=== PATIENT | female | born 1960 | race Caucasian/White ===

== ENCOUNTER → 2022-01-02 09:51 | Outpatient (BNVA) | payer OTHER, SELFPAY | PROVIDERS: PCP Physician Assistant Medical; Visit Provider Nurse Practitioner Family | DX: G35 Multiple sclerosis (principal); M96.1 Postlaminectomy syndrome, not elsewhere classified; M51.36 Other intervertebral disc degeneration, lumbar region; M79.652 Pain in left thigh; G89.29 Other chronic pain; M25.552 Pain in left hip; G83.9 Paralytic syndrome, unspecified; R29.6 Repeated falls; M76.32 Iliotibial band syndrome, left leg | CPT/HCPCS: 99202 ==

== ENCOUNTER 2022-01-28 10:40 | Outpatient (REF) | payer OTHER, SELFPAY ==
--- NOTE | ~2022-01-28 | MR_ITS ---
EXAMINATION: MR HIP WITHOUT CONTRAST, LEFT MRI FEMUR WITHOUT CONTRAST, LEFT CLINICAL INFORMATION: Left hip pain and left leg pain. Multiple sclerosis. COMPARISON: None. TECHNIQUE: MRI of the left hip and of the left thigh (separate studies) was obtained using routine sequences on a high-field magnet. FINDINGS: LEFT HIP: BONES AND ARTICULAR CARTILAGE: Severe osteoarthritis at the left hip is characterized by complete, full-thickness articular cartilage loss at the superior aspect of the left hip joint with articular cortical remodeling, subarticular cystic change and edema, marginal osteophytes and loose body formation. The flattening of the femoral head is likely due to articular cortical remodeling. Bone loss is also suspected at the sourcil. The labrum is markedly degenerated. There is slight lateral translation and uncovering of the femoral head relative to the acetabular roof. An underlying component of hip dysplasia is possible, though not well assessed on these images given the articular cortical remodeling and bone loss. No fracture or malalignment. No evidence of avascular necrosis. Minimal osteoarthritis in the right hip and SI joints. Pubic symphysis is normal. MUSCLES AND TENDONS: There is edema signal around the origin of the rectus femoris at the anterior superior iliac spine and lateral acetabular rim, reactive to the adjacent arthritis of the hip joint. No tears. Mild tendinosis. There is [id number] fatty atrophy of the gluteus minimus muscle. Musculature is otherwise unremarkable. JOINT FLUID AND BURSAE: Moderate-sized left hip joint effusion. Multiple low signal intensity intra-articular loose bodies are identified, measuring up to 6 mm in diameter. No bursitis. LIGAMENTUM TERES: Chronically torn and degenerated. INTRAPELVIC SOFT TISSUES: No acute intrapelvic abnormalities are identified. Colonic diverticulosis. No adenopathy. LEFT FEMUR: BONES AND CARTILAGE: Osteoarthritis at the left knee is only partially imaged on this study likely most pronounced at the lateral compartment where there is subchondral edema and cortical irregularity in addition to the cartilage loss and marginal osteophytes. No fractures or stress reactions. No osseous lesions. MUSCLES AND TENDONS: There is intramuscular edema signal within the vastus lateralis muscle which is most pronounced distally, potentially due to a muscle strain or contusion. Denervation is also possible, though felt to be less likely. Tendons appear intact. There is mild generalized muscle atrophy without more focal regions of fatty replacement. JOINT FLUID AND BURSAE: Small left knee joint effusion. No bursitis. LYMPHOVASCULAR STRUCTURES: Unremarkable. No adenopathy. MR/MR femur LT wo con IMPRESSION: Severe osteoarthritis in the left hip with articular surface remodeling, bone loss and subchondral cystic change. Mild rectus femoris tendinosis. No tears. Moderate-sized left hip joint effusion with small intra-articular chondral loose bodies. Mild intramuscular edema in the vastus lateralis muscle is most pronounced in the distal thigh and could correspond to a strain or contusion. Denervation is also on the differential, though felt to be less likely in the absence of more pronounced atrophy. Osteoarthritis at the knee is partially imaged on this study and most pronounced in the lateral compartment.
== END 2022-01-28 10:41 | disposition home or self-care (01) ==
LOC: HO.MRI 10:40
PROVIDERS: Visit Provider Nurse Practitioner Family
DX: G35 Multiple sclerosis (principal); G89.29 Other chronic pain; M79.652 Pain in left thigh; M25.552 Pain in left hip
CPT/HCPCS: 73718; 73721

== ENCOUNTER → 2022-02-13 08:24 | Outpatient (BNVA) | payer OTHER, SELFPAY | PROVIDERS: PCP Physician Assistant Medical; Visit Provider Nurse Practitioner Family | DX: M16.12 Unilateral primary osteoarthritis, left hip (principal); M79.652 Pain in left thigh; M25.552 Pain in left hip; G89.29 Other chronic pain; G83.9 Paralytic syndrome, unspecified; M51.36 Other intervertebral disc degeneration, lumbar region; M96.1 Postlaminectomy syndrome, not elsewhere classified; G35 Multiple sclerosis; R29.6 Repeated falls | CPT/HCPCS: 99212 ==

== ENCOUNTER → 2022-06-22 09:21 | Outpatient (BNVA) | payer OTHER, SELFPAY | PROVIDERS: PCP Physician Assistant Medical; Visit Provider Nurse Practitioner Family | DX: M96.1 Postlaminectomy syndrome, not elsewhere classified (principal); R20.2 Paresthesia of skin; G57.92 Unspecified mononeuropathy of left lower limb; M16.12 Unilateral primary osteoarthritis, left hip; M51.36 Other intervertebral disc degeneration, lumbar region; G35 Multiple sclerosis; M25.552 Pain in left hip; G89.29 Other chronic pain | CPT/HCPCS: 99212 ==

== ENCOUNTER → 2022-07-09 08:48 | Outpatient (BNVA) | payer OTHER, SELFPAY | PROVIDERS: PCP Physician Assistant Medical; Visit Provider Nurse Practitioner Family | DX: M96.1 Postlaminectomy syndrome, not elsewhere classified (principal); M16.12 Unilateral primary osteoarthritis, left hip; M51.36 Other intervertebral disc degeneration, lumbar region; G35 Multiple sclerosis; G57.92 Unspecified mononeuropathy of left lower limb; Z79.891 Long term (current) use of opiate analgesic | CPT/HCPCS: 99212 ==

== ENCOUNTER → 2022-07-23 10:45 | Outpatient (BNVA) | payer OTHER, SELFPAY | PROVIDERS: PCP Physician Assistant Medical; Visit Provider Nurse Practitioner Family | DX: Z13.89 Encounter for screening for other disorder (principal) ==

== ENCOUNTER → 2022-08-11 11:00 | Outpatient (BNVA) | payer OTHER, SELFPAY | PROVIDERS: PCP Physician Assistant Medical; Visit Provider Nurse Practitioner Family | DX: M96.1 Postlaminectomy syndrome, not elsewhere classified (principal); M51.36 Other intervertebral disc degeneration, lumbar region; M16.12 Unilateral primary osteoarthritis, left hip; G89.29 Other chronic pain; M25.552 Pain in left hip; Z79.891 Long term (current) use of opiate analgesic | CPT/HCPCS: 99212 ==

== ENCOUNTER 2022-09-02 12:46 | Outpatient (REF) | payer OTHER, SELFPAY ==
--- NOTE | 2022-09-02 10:00 | EMG_ITS ---
Please see scanned EMG / Nerve Conduction Report. MTDD
== END 2022-09-02 12:47 | disposition home or self-care (01) ==
LOC: HO.NEURO 12:46
PROVIDERS: PCP Student in an Organized Health Care Education/Training Program; Visit Provider Nurse Practitioner Family
DX: M96.1 Postlaminectomy syndrome, not elsewhere classified (principal); R20.2 Paresthesia of skin; G57.92 Unspecified mononeuropathy of left lower limb
CPT/HCPCS: 95885; 95908

== ENCOUNTER → 2022-09-08 11:04 | Outpatient (BNVA) | payer OTHER, SELFPAY | PROVIDERS: PCP Student in an Organized Health Care Education/Training Program; Visit Provider Nurse Practitioner Family | DX: Z51.81 Encounter for therapeutic drug level monitoring (principal); F11.20 Opioid dependence, uncomplicated | CPT/HCPCS: 99211 ==

== ENCOUNTER → 2022-09-29 11:09 | Outpatient (BNVA) | payer OTHER, SELFPAY | PROVIDERS: PCP Student in an Organized Health Care Education/Training Program; Visit Provider Nurse Practitioner Family | DX: G57.32 Lesion of lateral popliteal nerve, left lower limb (principal); M96.1 Postlaminectomy syndrome, not elsewhere classified; R20.2 Paresthesia of skin; M51.36 Other intervertebral disc degeneration, lumbar region; G35 Multiple sclerosis; G89.29 Other chronic pain; M25.552 Pain in left hip; Z79.891 Long term (current) use of opiate analgesic | CPT/HCPCS: Q3014 ==

== ENCOUNTER → 2022-10-02 13:47 | Outpatient (BNVA) | payer OTHER, SELFPAY | PROVIDERS: PCP Student in an Organized Health Care Education/Training Program; Visit Provider Nurse Practitioner Family | DX: M96.1 Postlaminectomy syndrome, not elsewhere classified (principal); M51.36 Other intervertebral disc degeneration, lumbar region; M16.12 Unilateral primary osteoarthritis, left hip; G89.29 Other chronic pain; M25.552 Pain in left hip; Z79.891 Long term (current) use of opiate analgesic; Z51.81 Encounter for therapeutic drug level monitoring | CPT/HCPCS: 99212 ==

== ENCOUNTER → 2022-11-03 11:00 | Outpatient (BNVA) | payer OTHER, SELFPAY | PROVIDERS: PCP Student in an Organized Health Care Education/Training Program; Visit Provider Nurse Practitioner Family | DX: Z51.81 Encounter for therapeutic drug level monitoring (principal); Z79.899 Other long term (current) drug therapy | CPT/HCPCS: 99211 ==

== ENCOUNTER → 2022-11-12 08:40 | Outpatient (BNVA) | payer OTHER, SELFPAY | PROVIDERS: PCP Student in an Organized Health Care Education/Training Program; Visit Provider Nurse Practitioner Family | DX: G35 Multiple sclerosis (principal); G57.32 Lesion of lateral popliteal nerve, left lower limb; M16.12 Unilateral primary osteoarthritis, left hip; M51.36 Other intervertebral disc degeneration, lumbar region; M96.1 Postlaminectomy syndrome, not elsewhere classified; R20.2 Paresthesia of skin; Z79.891 Long term (current) use of opiate analgesic | CPT/HCPCS: Q3014 ==

== ENCOUNTER → 2022-12-01 10:08 | Outpatient (BNVA) | payer OTHER, SELFPAY | PROVIDERS: PCP Student in an Organized Health Care Education/Training Program; Visit Provider Nurse Practitioner Family | DX: Z51.81 Encounter for therapeutic drug level monitoring (principal); M16.12 Unilateral primary osteoarthritis, left hip; M96.1 Postlaminectomy syndrome, not elsewhere classified; M51.36 Other intervertebral disc degeneration, lumbar region; M25.552 Pain in left hip; G57.32 Lesion of lateral popliteal nerve, left lower limb; G89.29 Other chronic pain; Z79.891 Long term (current) use of opiate analgesic | CPT/HCPCS: 99212 ==

== ENCOUNTER → 2022-12-21 09:46 | Outpatient (BNVA) | payer OTHER, SELFPAY | PROVIDERS: PCP Internal Medicine; Visit Provider Nurse Practitioner Family | DX: Z51.81 Encounter for therapeutic drug level monitoring (principal); M16.12 Unilateral primary osteoarthritis, left hip; M96.1 Postlaminectomy syndrome, not elsewhere classified; M51.36 Other intervertebral disc degeneration, lumbar region; M25.552 Pain in left hip; G57.32 Lesion of lateral popliteal nerve, left lower limb; G89.29 Other chronic pain; Z79.891 Long term (current) use of opiate analgesic | CPT/HCPCS: 99212 ==

== ENCOUNTER → 2023-01-18 10:01 | Outpatient (BNVA) | payer OTHER, SELFPAY | PROVIDERS: PCP Internal Medicine; Visit Provider Nurse Practitioner Family | DX: Z51.81 Encounter for therapeutic drug level monitoring (principal); F11.20 Opioid dependence, uncomplicated | CPT/HCPCS: 99211 ==

== ENCOUNTER 2023-02-18 10:08 | Outpatient (AMB) | payer OTHER, SELFPAY ==
--- NOTE | 2023-02-18 10:10 | A.OFFVIS_ITS ---
Intake Vital Signs 02/18/23 10:23 Height 5 ft 9 in Weight 160 lb BMI 23.6 BP 115/58 L Blood Pressure Location Lt brachial Position Sitting Pulse 71 Pulse Source Pulse Oximeter Pulse Oximetry (%) 96 Oxygen Delivery Method Room Air Intake Visit Reasons: Pill count Intake Note: Maria comes in today for a pill count to oxycodone, patient should have 0 tablets and presents with 21 tablets which she last took today 02/18/23 at 9am. Pain today 02/25. 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 Patient is supposed to have #0 pills, in her possession has #21 pills. This demonstrates a responsible attitude in regards to the medication regimen. Patient reports mild to moderate relief on her current regime of oxycodone 5 mg TID prn with no noted side effects. Reports right shoulder pain with difficulty raising her right arm above her head and has to assist her right arm with left hand. She has upcoming follow up for this with Orthopedics at [facility] next week. Patient requests to add Tylenol in her oxycodone medication. Denies any fever, constipation, sedation, dizziness, or urinary retention. [facility] Medical History Constipation Depression Dyspnea Edema leg Frequent UTI GERD (gastroesophageal reflux disease) Hyperlipidemia Hypertension Hypothyroidism Leukopenia Medical marijuana use Neurogenic bladder disorder Paroxysmal hemicrania Periodic limb movement disorder Pre-diabetes Splenomegaly Urinary urgency Vitamin D deficiency Surgical History H/O: H/O: hysterectomy History of back surgery Family History Mother Rheumatoid arthritis Thyroid cancer Father Rheumatoid arthritis Maternal Grandmother Lung cancer Maternal Grandfather Rectal cancer Maternal Aunt Thyroid cancer Social History Alcohol intake: current Alcohol intake frequency: holidays/special occasions only Patient Tobacco Use Status: Former Tobacco user Review of Systems Const All systems reviewed & are unremarkable except as noted in HPI and below Physical Exam Vital Signs: Last Vital Signs Pulse 71 02/18/23 10:23 BP 115/58 L 02/18/23 10:23 Pulse Ox 96 02/18/23 10:23 Oxygen Delivery Method Room Air 02/18/23 10:23 BMI result Body Mass Index 23.6 General: Appears afebrile. Alert and oriented. Mood and affect appropriate. Follows and participates in conversation appropriately. Respiratory effort is unlabored. Sits comfortably in motorized wheelchair. Back/Spine/Pelvis Other: Extrem Other: Right shoulder normal to inspection. No erythema or ecchymosis. Patient has difficulty with overhead reach or reaching her back pocket. Significant tendern ess to palpation to the anterior aspect of the right shoulder. Psych Appearance: grossly normal Mental Status: mental status grossly normal Speech and movement: Normal speech and movement present Affect: normal affect Attitude: cooperative Thought process: Normal thought process present Thought content: Normal thought content present, suicidality (none), no hallucinations and No Depressive thoughts present Insight: Good insight present (Psych) Judgement: Good judgement present (Psych) Assessment & Plan Assessment & Plan (1) Opioid contract exists: Code(s): Z79.891 - MCFP (current) use of opiate analgesic (2) Degenerative joint disease of left hip: Code(s): M16.12 - Unilateral primary osteoarthritis, left hip (3) Failed back syndrome of lumbar spine: Code(s): M96.1 - Postlaminectomy syndrome, not elsewhere classified (4) Lumbar degenerative disc disease: Code(s): M51.36 - Other intervertebral disc degeneration, lumbar region (5) Chronic left hip pain: Code(s): M25.552 - Pain in left hip; G89.29 - Other chronic pain (6) Right shoulder pain: Code(s): M25.511 - Pain in right shoulder Plan Patient has shown accountability for her medication regimen and the pill count was accurate. There is no evidence of misuse, abuse or diversion at this time. MyronThu reviewed. Will add acetaminophen to current oxycodone 5 mg TID prn with advanced date of 02/23/23. Follow up with [facility] for right shoulder pain as planned next week. All questions were answered and the patient is in agreement with the plan. Will follow up in 4-5 weeks for a pill count or sooner if needed. Medications: New oxycodone-acetaminophen 5-325 mg Partial Fill upon patient request. 1 tab PO Q8H PRN 90 tabs 0RF pain 30 days G89.29 - Other chronic pain, M16.12 - Unilateral primary osteoarthritis, left hip, M25.552 - Pain in left hip, M51.36 - Other intervertebral disc degeneration, lumbar region, M96.1 - Postlaminectomy syndrome, not elsewhere classified, Z79.891 - MCFP (current) use of opiate analgesic Discontinued oxycodone Partial Fill upon patient request. Discontinued Reason: Doctor's Order 5 mg PO Q8H PRN 90 tabs 0RF pain 30 days G89.29 - Other chronic pain, M16.12 - Unilateral primary osteoarthritis, left hip, M25.552 - Pain in left hip, M51.36 - Other intervertebral disc degeneration, lumbar region, M96.1 - Postlaminectomy syndrome, not elsewhere classified, Z79.891 - MCFP (current) use of opiate analgesic Coding Level of Care Code Est Pt Level 4 (64541) Diagnoses Opioid contract exists Z79.891 Degenerative joint disease of left hip M16.12 Failed back syndrome of lumbar spine M96.1 Lumbar degenerative disc disease M51.36 Chronic left hip pain M25.552; G89.29 Right shoulder pain M25.511
[2023-02-18 10:23] VITALS: BP 115/58; PULSE 71; O2SAT 96; BMI 23.6
== END 2023-02-18 10:23 | disposition home or self-care (01) ==
PROVIDERS: PCP Internal Medicine; Visit Provider Nurse Practitioner Family
DX: Z79.891 Long term (current) use of opiate analgesic (principal); M16.12 Unilateral primary osteoarthritis, left hip; M96.1 Postlaminectomy syndrome, not elsewhere classified; M51.36 Other intervertebral disc degeneration, lumbar region; M25.552 Pain in left hip; G89.29 Other chronic pain; M25.511 Pain in right shoulder
CPT/HCPCS: 99214

== ENCOUNTER → 2023-02-18 10:08 | Outpatient (BNVA) | payer OTHER, SELFPAY | PROVIDERS: PCP Internal Medicine; Visit Provider Nurse Practitioner Family | DX: Z51.81 Encounter for therapeutic drug level monitoring (principal); M16.12 Unilateral primary osteoarthritis, left hip; M96.1 Postlaminectomy syndrome, not elsewhere classified; M51.36 Other intervertebral disc degeneration, lumbar region; M25.552 Pain in left hip; M25.511 Pain in right shoulder; G89.29 Other chronic pain; Z79.891 Long term (current) use of opiate analgesic | CPT/HCPCS: 99212 ==

== ENCOUNTER 2023-03-16 10:41 | Outpatient (AMB) | payer OTHER, SELFPAY ==
--- NOTE | 2023-03-16 10:43 | A.OFFVIS_ITS ---
Intake Vital Signs 03/16/23 10:56 Height 5 ft 9 in Weight 158 lb BMI 23.3 BP 110/67 Blood Pressure Location Rt brachial Position Sitting Pulse 60 Pulse Source Pulse Oximeter Pulse Oximetry (%) 97 Oxygen Delivery Method Room Air Intake Visit Reasons: Pill count Intake Note: Maria comes in today for a pill count to oxycodone-acetaminophen, Patient s hould have 30 tablets and presents with 40 tablets which she last took yesterday 03/15/23 at 4pm. Pain today 10/26. 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 Patient is supposed to have #30 pills, in her possession has #40 pills. This demonstrates a responsible attitude in regards to the medication regimen. Patient reports mild to moderate relief on her current regime of oxycodone-acetaminophen 5 mg TID prn with no noted side effects. Denies any fever, constipation, shortness of breaths, nausea, sedation, dizziness, or urinary retention. Patient reports left buttock pain with prolonged sitting, as most of the time she is in motorized wheelchair in flexed position. She reports, at times she gets up to transfer herself from reclining chair to wheelchair or to the bathroom. She has chronic left lateral hip and knee pain that has been partially managed with medical management. Patient has been told at [facility] she does need replacement of her left hip and left knee but has no chance of recovery due to being bound to wheelchair. Patient presents with symptoms of left piriformis and left sciatica symptoms. Pain improved when she gets up for short period of times or shifts her weight to the right side temprorarily. She reports last lumbar spine MRI was done at [facility]. She has history of painful hardware removal in 2020. No lumbar imaging is available for review today. She currently undergoes home PT. Denies any coccyx pain, pelvic spasms, bladder or bowel incontinence or saddle anesthesia. [facility] Medical History Constipation Depression Dyspnea Edema leg Frequent UTI GERD (gastroesophageal reflux disease) Hyperlipidemia Hypertension Hypothyroidism Leukopenia Medical marijuana use Neurogenic bladder disorder Paroxysmal hemicrania Periodic limb movement disorder Pre-diabetes Splenomegaly Urinary urgency Vitamin D deficiency Surgical History H/O: H/O: hysterectomy History of back surgery Family History Mother Rheumatoid arthritis Thyroid cancer Father Rheumatoid arthritis Maternal Grandmother Lung cancer Maternal Grandfather Rectal cancer Maternal Aunt Thyroid cancer Social History Alcohol intake: current Alcohol intake frequency: holidays/special occasions only Patient Tobacco Use Status: Former Tobacco user Review of Systems Const All systems reviewed & are unremarkable except as noted in HPI and below Physical Exam Vital Signs: Last Vital Signs Pulse 60 03/16/23 10:56 BP 110/67 03/16/23 10:56 Pulse Ox 97 03/16/23 10:56 Oxygen Delivery Method Room Air 03/16/23 10:56 BMI result Body Mass Index 23.3 General: Appears afebrile. Alert and oriented. Mood and affect appropriate. Follows and participates in conversation appropriately. Respiratory effort is unlabored. Sits comfortably in motorized wheelchair but frequently adjusts her sitting by shifting her weight to the right. Mild to moderate tenderness in the projection of left piriformis and sciatica notch areas. Seated SLR testing is negative bilaterally. Left hip lateral tenderness and pain with LLE movements. 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 There is no evidence of misuse, abuse or diversion at this time. Lay reviewed. Will add acetaminophen to current oxycodone 5 mg TID prn with advanced date of 03/30/23. Will send request to [facility] for most recent lumbar spine imaging prior to considering interventional treatmets for left buttock pain with prolonged sitting. Continue home PT and HEP. All questions were answered and the patient is in agreement with the plan. Will follow up in 4-5 weeks for a pill count or sooner if needed. Medications: Refilled oxycodone-acetaminophen 5-325 mg Partial Fill upon patient request. 1 tab PO Q8H 30 days PRN 90 tabs 0RF pain G89.29 - Other chronic pain, M16.12 - Unilateral primary osteoarthritis, left hip, M25.552 - Pain in left hip, M51.36 - Other intervertebral disc degeneration, lumbar region, M96.1 - Postlaminectomy syndrome, not elsewhere classified, Z79.891 - long-term (current) use of opiate analgesic Coding Level of Care Code Est Pt Level 4 (23157) Diagnoses Opioid contract exists Z79.891 Degenerative joint disease of left hip M16.12 Failed back syndrome of lumbar spine M96.1 Lumbar degenerative disc disease M51.36 Chronic left hip pain M25.552; G89.29
[2023-03-16 10:56] VITALS: BP 110/67; PULSE 60; O2SAT 97; BMI 23.3
== END 2023-03-16 11:15 | disposition home or self-care (01) ==
PROVIDERS: PCP Internal Medicine; Visit Provider Nurse Practitioner Family
DX: M16.12 Unilateral primary osteoarthritis, left hip (principal); Z79.891 Long term (current) use of opiate analgesic; M96.1 Postlaminectomy syndrome, not elsewhere classified; M51.36 Other intervertebral disc degeneration, lumbar region; M25.552 Pain in left hip; G89.29 Other chronic pain
CPT/HCPCS: 99214

== ENCOUNTER → 2023-03-16 10:41 | Outpatient (BNVA) | payer OTHER, SELFPAY | PROVIDERS: PCP Internal Medicine; Visit Provider Nurse Practitioner Family | DX: M96.1 Postlaminectomy syndrome, not elsewhere classified (principal); M16.12 Unilateral primary osteoarthritis, left hip; M51.36 Other intervertebral disc degeneration, lumbar region; G89.29 Other chronic pain; M25.552 Pain in left hip; Z79.891 Long term (current) use of opiate analgesic | CPT/HCPCS: 99212 ==

== ENCOUNTER 2023-04-13 10:24 | Outpatient (AMB) | payer OTHER, SELFPAY ==
--- NOTE | 2023-04-13 10:25 | MHC.OFFVIS ---
Intake Vital Signs 04/13/23 10:37 Height 5 ft 9 in Weight 158 lb BMI 23.3 BP 116/65 Blood Pressure Location Rt brachial Position Sitting Pulse 68 Pulse Source Pulse Oximeter Pulse Oximetry (%) 97 Oxygen Delivery Method Room Air Intake Visit Reasons: Pill Count/ CONFIRMED Intake Note: Maria comes in today for a pill count to oxycodone-acetaminophen, patient should have 57 tablets and presents with 59 tablets which she last took today 04/13/23 at 6am. 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 Patient is supposed to have #57 pills, in her possession has #59 pills. This demonstrates a responsible attitude in regards to the medication regimen. Patient reports adequate analgesia on her current regime of oxycodone-acetaminophen 5 mg TID prn with no noted side effects. Denies any fever, constipation, shortness of breaths, nausea, sedation, dizziness, or urinary retention. Patient continuous to endorse left buttock pain with prolonged sitting. She is being scheduled for left piriformis injection. Patient reports pain alleviates when she gets out from wheelchair. Most of her daytime is spent in motorized wheelchair in flexed position. [facility] Medical History Constipation Depression Dyspnea Edema leg Frequent UTI GERD (gastroesophageal reflux disease) Hyperlipidemia Hypertension Hypothyroidism Leukopenia Medical marijuana use Neurogenic bladder disorder Paroxysmal hemicrania Periodic limb movement disorder Pre-diabetes Splenomegaly Urinary urgency Vitamin D deficiency Surgical History H/O: H/O: hysterectomy History of back surgery Family History Mother Rheumatoid arthritis Thyroid cancer Father Rheumatoid arthritis Maternal Grandmother Lung cancer Maternal Grandfather Rectal cancer Maternal Aunt Thyroid cancer Social History Alcohol intake: current Alcohol intake frequency: holidays/special occasions only Patient Tobacco Use Status: Former Tobacco user Review of Systems Const All systems reviewed & are unremarkable except as noted in HPI and below Physical Exam Vital Signs: Last Vital Signs Pulse 68 04/13/23 10:37 BP 116/65 04/13/23 10:37 Pulse Ox 97 04/13/23 10:37 Oxygen Delivery Method Room Air 04/13/23 10:37 BMI result Body Mass Index 23.3 General: Appears afebrile. Alert and oriented. Mood and affect appropriate. Follows and participates in conversation appropriately. Respiratory effort is unlabored. Sits comfortably in motorized wheelchair but frequently adjusts her sitting position. Moderate tenderness in the projection of left piriformis and sciatica notch areas. Seated SLR testing is negative bilaterally. Left hip lateral tenderness and pain with LLE movements. 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 (2) Degenerative joint disease of left hip: Code(s): M16.12 - Unilateral primary osteoarthritis, left hip (3) Failed back syndrome of lumbar spine: Code(s): M96.1 - Postlaminectomy syndrome, not elsewhere classified (4) Lumbar degenerative disc disease: Code(s): M51.36 - Other intervertebral disc degeneration, lumbar region (5) Chronic left hip pain: Code(s): M25.552 - Pain in left hip; G89.29 - Other chronic pain (6) Piriformis syndrome of left side: Code(s): G57.02 - Lesion of sciatic nerve, left lower limb Plan Patient has shown accountability for her medication regimen and the pill count was accurate. There is no evidence of misuse, abuse or diversion at this time. [employer] reviewed. Script for oxycodone-acetaminophen 5 mg TID prn sent with advanced date of 05/01/23. Continue home PT and HEP. Proceed with Left Piriformis injection as planned. All questions were answered and the patient is in agreement with the plan. Will follow up in 4-5 weeks for a pill count or sooner if needed. Medications: Refilled oxycodone-acetaminophen 5-325 mg Partial Fill upon patient request. 1 tab PO Q8H PRN 90 tabs 0RF pain 30 days G89.29 - Other chronic pain, M16.12 - Unilateral primary osteoarthritis, left hip, M25.552 - Pain in left hip, M51.36 - Other intervertebral disc degeneration, lumbar region, M96.1 - Postlaminectomy syndrome, not elsewhere classified, Z79.891 - halfway (current) use of opiate analgesic Coding Level of Care Code Est Pt Level 4 (51562) Diagnoses Opioid contract exists Z79.891 Degenerative joint disease of left hip M16.12 Failed back syndrome of lumbar spine M96.1 Lumbar degenerative disc disease M51.36 Chronic left hip pain M25.552; G89.29 Piriformis syndrome of left side G57.02
[2023-04-13 10:37] VITALS: BP 116/65; PULSE 68; O2SAT 97; BMI 23.3
== END 2023-04-13 10:50 | disposition home or self-care (01) ==
PROVIDERS: PCP Internal Medicine; Visit Provider Nurse Practitioner Family
DX: G89.29 Other chronic pain (principal); M16.12 Unilateral primary osteoarthritis, left hip; M96.1 Postlaminectomy syndrome, not elsewhere classified; Z79.891 Long term (current) use of opiate analgesic; M51.36 Other intervertebral disc degeneration, lumbar region; M25.552 Pain in left hip; G57.02 Lesion of sciatic nerve, left lower limb
CPT/HCPCS: 99214

== ENCOUNTER → 2023-04-13 10:24 | Outpatient (BNVA) | payer OTHER, SELFPAY | PROVIDERS: PCP Internal Medicine; Visit Provider Nurse Practitioner Family | DX: Z51.81 Encounter for therapeutic drug level monitoring (principal); M16.12 Unilateral primary osteoarthritis, left hip; M96.1 Postlaminectomy syndrome, not elsewhere classified; M51.36 Other intervertebral disc degeneration, lumbar region; M25.552 Pain in left hip; G89.29 Other chronic pain; Z79.891 Long term (current) use of opiate analgesic | CPT/HCPCS: 99212 ==

== ENCOUNTER 2023-04-27 06:04 | Outpatient (REF) | payer OTHER, SELFPAY | END 2023-04-27 06:05 | disposition home or self-care (01) | LOC: CF 06:04 | PROVIDERS: Visit Provider Anesthesiology | DX: M16.12 Unilateral primary osteoarthritis, left hip (principal); G57.02 Lesion of sciatic nerve, left lower limb; M96.1 Postlaminectomy syndrome, not elsewhere classified; M51.36 Other intervertebral disc degeneration, lumbar region; G89.29 Other chronic pain | CPT/HCPCS: 20552 ==

== ENCOUNTER 2023-04-27 09:07 | Outpatient (AMB) | payer OTHER, SELFPAY ==
--- NOTE | 2023-04-27 09:24 | MHC.OFFVIS ---
Intake Vital Signs 04/27/23 09:26 04/27/23 09:26 Height 5 ft 9 in 5 ft 9 in Weight 158 lb 158 lb BMI 23.3 23.3 BP 120/60 108/68 Blood Pressure Location Rt brachial Rt brachial Position Sitting Sitting Respiration 14 14 Pulse 62 67 Pulse Source Pulse Oximeter Pulse Oximeter Pulse Oximetry (%) 97 98 Oxygen Delivery Method Room Air Room Air Comment pre-op post-op Intake Visit Reasons: L DX PIRIFORMIS MUSCLE INJ/LOCAL Allergies gadopentetic acid [From Magnevist] Allergy (Unknown, Verified 04/27/23 10:16) Vomiting nitrofurantoin [From Macrobid] Allergy (Unknown, Verified 04/27/23 10:16) Swelling sulfamethoxazole [From Bactrim] Allergy (Unknown, Verified 04/27/23 10:16) Hives trimethoprim [From Bactrim] Allergy (Unknown, Verified 04/27/23 10:16) Hives Gadopentetate Allergy (Unknown, Uncoded 01/18/23 10:32) Vomiting PFSH Medical History Constipation Depression Dyspnea Edema leg Frequent UTI GERD (gastroesophageal reflux disease) Hyperlipidemia Hypertension Hypothyroidism Leukopenia Medical marijuana use Neurogenic bladder disorder Paroxysmal hemicrania Periodic limb movement disorder Pre-diabetes Splenomegaly Urinary urgency Vitamin D deficiency Surgical History H/O: H/O: hysterectomy History of back surgery Family History Mother Rheumatoid arthritis Thyroid cancer Father Rheumatoid arthritis Maternal Grandmother Lung cancer Maternal Grandfather Rectal cancer Maternal Aunt Thyroid cancer Social History Alcohol intake: current Alcohol intake frequency: holidays/special occasions only Patient Tobacco Use Status: Former Tobacco user Physical Exam Vital Signs: Last Vital Signs Pulse 67 04/27/23 09:26 Resp 14 04/27/23 09:26 BP 108/68 04/27/23 09:26 Pulse Ox 98 04/27/23 09:26 Oxygen Delivery Method Room Air 04/27/23 09:26 BMI result Body Mass Index 23.3 Assessment & Plan Assessment & Plan (1) Opioid contract exists: Code(s): 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 Informed consent was explained thoroughly to the patient. All questions about benefits and risks for the procedure were answered. Patient came to theexamination room and was positioned prone on the bed with the pillow under the pelvis. Time out was performed delineating name and of the patient, allergies and the nature of the procedure. The lower back and left buttock of the patient were prepped with ChloraPrep prepped and draped with sterile utility towels. Sterilily draped US probe was brought over the operating field and picture of patient's gluteus henny muscle and underlying periformis muscle at the point approximately 3-4 cm away from insertion site of the piriformis muscle was demonstrated on the ultrasound screen. After [id number] mm Echostim needle was inserted extra anatomically and advanced toward the body of piriformis muscle under direct US guidance. when tip of the needle was detected inside the piriformis muscle body injection of saline was perform demonstrating spread of the saline within the body of piriformis muscle. After that 8 mls of Ropivacaine 0.5% was injected into the piriformis muscle without complications. The patient had difficulty tolerating the procedure because of limited extremities mobility, and required multiple adjustment to position her prone. Eventually the procedure was completed without complications. Plan Patient has shown accountability for her medication regimen and the pill count was accurate. There is no evidence of misuse, abuse or diversion at this time. [employer] reviewed. Script for oxycodone-acetaminophen 5 mg TID prn sent with advanced date of 05/01/23. Continue home PT and HEP. Proceed with Left Piriformis injection as planned. All questions were answered and the patient is in agreement with the plan. Will follow up in 4-5 weeks for a pill count or sooner if needed. Orders: Orders [place] guidance in treatment room Today G57.02 - Lesion of sciatic nerve, left lower limb Coding Level of Care Code Procedure Only Diagnoses Opioid contract exists Z79.891 Degenerative joint disease of left hip M16.12 Failed back syndrome of lumbar spine M96.1 Lumbar degenerative disc disease M51.36 Chronic left hip pain M25.552; G89.29 Piriformis syndrome of left side G57.02
[2023-04-27 09:26] VITALS: BP 108/68; BP 120/60; PULSE 62; PULSE 67; RESP 14; O2SAT 97; O2SAT 98; BMI 23.3
== END 2023-04-27 10:00 | disposition home or self-care (01) ==
LOC: HO.PMCPRC 09:07
PROVIDERS: PCP Internal Medicine; Visit Provider Anesthesiology
DX: M79.18 Myalgia, other site (principal)
CPT/HCPCS: 20552

== ENCOUNTER 2023-04-29 10:32 | Outpatient (AMB) | payer OTHER, SELFPAY ==
--- NOTE | 2023-04-29 10:34 | A.OFFVIS_ITS ---
Intake Vital Signs 04/29/23 10:39 Height 5 ft 9 in Weight 159 lb BMI 23.5 BP 123/57 L Blood Pressure Location Lt brachial Position Sitting Pulse 72 Pulse Source Pulse Oximeter Pulse Oximetry (%) 96 Oxygen Delivery Method Room Air Intake Visit Reasons: L DX PIRIFORMIS MUSCLE INJ 04/27/23 Allergies gadopentetic acid [From Magnevist] Allergy (Unknown, Verified 04/29/23 10:40) Vomiting nitrofurantoin [From Macrobid] Allergy (Unknown, Verified 04/29/23 10:40) Swelling sulfamethoxazole [From Bactrim] Allergy (Unknown, Verified 04/29/23 10:40) Hives trimethoprim [From Bactrim] Allergy (Unknown, Verified 04/29/23 10:40) Hives Gadopentetate Allergy (Unknown, Uncoded 01/18/23 10:32) Vomiting HPI HPI Comments History of Present Illness Details Patient presents today to assess response to left diagnostic piriformis muscle injection on 04/27/[address] Block. Patient reports 80% pain relief for over 12 hours since procedure with improved functioning, mobility, transferring, mood and quality of life. Patient reports she is able to tolerate prolonged sitting and standing and she also reports less urinary incontinence episodes since the injection. Patient reports increase left hip pain for one week due to holding NSAIDs prior to injection. She has been taking oxycodone during that time regularly every 8 hours with partial relief. She rates her pain 4-6/10 today. Patient is interested to proceed left therap eutic piriformis injection as next steps. Denies any recent cough, cold, infection, fever or other significant changes in medical history since last office visit. Past Procedures: 04/27/23: Left Diagnostic Piriformis Mus juan r Injection-80% pain relief x12 hours PRIOR: Patient presents today for a pill count. Patient is supposed to have #57 pills, in her possession has #59 pills. This demonstrates a responsible attitude in regards to the medication regimen. Patient reports adequate analgesia on her current regime of oxycodone-acetaminophen 5 mg TID prn with no noted side effects. Denies any fever, constipation, shortness of breaths, nausea, sedation, dizziness, or urinary retention. Patient continuous to endorse left buttock pain with prolonged sitting. She is being scheduled for left piriformis injection. Patient reports pain alleviates when she gets out from wheelchair. Most of her daytime is spent in motorized wheelchair in flexed position. [facility] Medical History Dyspnea Periodic limb movement disorder Splenomegaly Leukopenia Neurogenic bladder disorder Paroxysmal hemicrania Constipation Hypothyroidism Vitamin D deficiency GERD (gastroesophageal reflux disease) Hypertension Frequent UTI Pre-diabetes Urinary urgency Medical marijuana use Edema leg Hyperlipidemia Depression Surgical History H/O: History of back surgery H/O: hysterectomy Family History Mother Rheumatoid arthritis Thyroid cancer Father Rheumatoid arthritis Maternal Grandmother Lung cancer Maternal Grandfather Rectal cancer Maternal Aunt Thyroid cancer Social History Alcohol intake: current Alcohol intake frequency: holidays/special occasions only Patient Tobacco Use Status: Former Tobacco user Review of Systems Const All systems reviewed & are unremarkable except as noted in HPI and below Physical Exam Vital Signs: Last Vital Signs Pulse 72 04/29/23 10:39 BP 123/57 L 04/29/23 10:39 Pulse Ox 96 04/29/23 10:39 Oxygen Delivery Method Room Air 04/29/23 10:39 BMI result Body Mass Index 23.5 General: Appears afebrile. Alert and oriented. Mood and affect appropriate. Follows and participates in conversation appropriately. Respiratory effort is unlabored. Sits comfortably in motorized wheelchair but frequently adjusts her sitting position. Mild tenderness in the projection of left piriformis. Left hip lateral tenderness and pain with LLE movements. Back/Spine/Pelvis Cervical Spine: cervical ROM normal and No Cervical spine tenderness Thoracic/Lumbar Spine: thoracic and lumbar spine normal to inspection, Thoracic/lumbar spine scar(s), Lasegue's sign negative, pain with thoraco-lumbar ROM, No thoracic spinal tenderness and No lumbar spinal tenderness Pelvis: buttock tenderness on the left and no sciatic notch tenderness Sacroiliac joints: bilaterally nontender Assessment & Plan Assessment & Plan (1) Piriformis syndrome of left side: Code(s): G57.02 - Lesion of sciatic nerve, left lower limb (2) Chronic left hip pain: Code(s): M25.552 - Pain in left hip; G89.29 - Other chronic pain (3) Failed back syndrome of lumbar spine: Code(s): M96.1 - Postlaminectomy syndrome, not elsewhere classified Plan Patient patient is status post left diagnostic piriformis muscle injection on 04/27/2023 is 80% pain relief for 12 hours is significant improvement in her functioning, sitting and standing improved tolerance as well as less urinary incontinence episodes. She is very content with diagnostic injection results and would like to proceed with therapeutic injection for a longer-term pain relief in her left buttock. Given pain exacerbation in her left hip due to pausing her NSAIDs, I will refill patient's oxycodone script 2 days earlier than previously sent. Recommended that the patient should try to reduce NSAID usage over time. Schedule left therapeutic piriformis muscle injection with local and ultrasound guidance. Expectations, risks and benefits were reviewed. Patient is aware she will be contacted to schedule this procedure. All questions were answered and the patient is in agreement of plan. Follow-up after injections and sooner as needed. Medications: Refilled oxycodone-acetaminophen 5-325 mg Partial Fill upon patient request. 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
[2023-04-29 10:39] VITALS: BP 123/57; PULSE 72; O2SAT 96; BMI 23.5
== END 2023-04-29 11:03 | disposition home or self-care (01) ==
PROVIDERS: PCP Internal Medicine; Visit Provider Nurse Practitioner Family
DX: G57.02 Lesion of sciatic nerve, left lower limb (principal); M25.552 Pain in left hip; G89.29 Other chronic pain; M96.1 Postlaminectomy syndrome, not elsewhere classified
CPT/HCPCS: 99213

== ENCOUNTER → 2023-04-29 10:32 | Outpatient (BNVA) | payer OTHER, SELFPAY | PROVIDERS: PCP Internal Medicine; Visit Provider Nurse Practitioner Family | DX: G57.02 Lesion of sciatic nerve, left lower limb (principal); M96.1 Postlaminectomy syndrome, not elsewhere classified; G89.29 Other chronic pain; M25.552 Pain in left hip; Z98.890 Other specified postprocedural states | CPT/HCPCS: 99212 ==

== ENCOUNTER 2023-05-13 10:11 | Outpatient (AMB) | payer OTHER, SELFPAY ==
[2023-05-13 10:29] VITALS: BP 124/64; PULSE 75; O2SAT 97; BMI 22.9
--- NOTE | 2023-05-13 10:29 | A.OFFVIS_ITS ---
Intake Vital Signs 05/13/23 10:29 Height 5 ft 9 in Weight 155 lb BMI 22.9 BP 124/64 Blood Pressure Location Lt brachial Position Sitting Pulse 75 Pulse Source Pulse Oximeter Pulse Oximetry (%) 97 Oxygen Delivery Method Room Air Intake Visit Reasons: Pill Count Intake Note: Maria comes in today for a pill count to oxycodone-acetaminophen, patient s hould have 48 tablets and presents with 53 tablets which she last took last night 05/12/23 at 8pm. Pain today 10/26. 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 Patient is supposed to have #48 pills, in her possession has #53 pills. This demonstrates a responsible attitude in regards to the medication regimen. Patient reports adequate analgesia on her current regime of oxycodone-acetaminophen 5 mg TID prn with no noted side effects. Denies any fever, constipation, shortness of breaths, nausea, sedation, dizziness, or urinary retention. Patient continuous to endorse left buttock pain with prolonged sitting. She is being scheduled for left therapeutic piriformis injection. She was contacted by our office on 05/11/23 to schedule this and was left a voice message. 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 [facility] Medical History Dyspnea Periodic limb movement disorder Splenomegaly Leukopenia Neurogenic bladder disorder Paroxysmal hemicrania Constipation Hypothyroidism Vitamin D deficiency GERD (gastroesophageal reflux disease) Hypertension Frequent UTI Pre-diabetes Urinary urgency Medical marijuana use Edema leg Hyperlipidemia Depression Surgical History H/O: History of back surgery H/O: hysterectomy Family History Mother Rheumatoid arthritis Thyroid cancer Father Rheumatoid arthritis Maternal Grandmother Lung cancer Maternal Grandfather Rectal cancer Maternal Aunt Thyroid cancer Social History Alcohol intake: current Alcohol intake frequency: holidays/special occasions only Patient Tobacco Use Status: Former Tobacco user Review of Systems Const All systems reviewed & are unremarkable except as noted in HPI and below Physical Exam Vital Signs: Last Vital Signs Pulse 75 05/13/23 10:29 BP 124/64 05/13/23 10:29 Pulse Ox 97 05/13/23 10:29 Oxygen Delivery Method Room Air 05/13/23 10:29 BMI result Body Mass Index 22.9 General: Appears afebrile. Alert and oriented. Mood and affect appropriate. Follows and participates in conversation appropriately. Respiratory effort is unlabored. Sits comfortably in motorized wheelchair but frequently adjusts her sitting position. Mild tenderness in the projection of left piriformis. Left hip lateral tenderness and pain with LLE movements. 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 (2) Degenerative joint disease of left hip: Code(s): M16.12 - Unilateral primary osteoarthritis, left hip (3) Failed back syndrome of lumbar spine: Code(s): M96.1 - Postlaminectomy syndrome, not elsewhere classified (4) Chronic left hip pain: Code(s): M25.552 - Pain in left hip; G89.29 - Other chronic pain (5) Piriformis syndrome of left side: Comment: 04/27/23: left diagnostic piriformis muscle injection with 80% pain relief for 12 hours, 50% relief x1 week Code(s): G57.02 - Lesion of sciatic nerve, left lower limb Plan Patient has shown accountability for her medication regimen and the pill count was accurate. There is no evidence of misuse, abuse or diversion at this time. [employer] reviewed. Script for oxycodone-acetaminophen 5 mg TID prn sent with advanced date of 05/30/23. Continue home PT and HEP. Proceed with Left Piriformis therapeutic injection as planned. All questions were answered and the patient is in agreement with the plan. Will follow up in one month for a pill count or sooner if needed. Medications: Refilled oxycodone-acetaminophen 5-325 mg Partial Fill upon patient request. 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
== END 2023-05-13 10:52 | disposition home or self-care (01) ==
PROVIDERS: PCP Internal Medicine; Visit Provider Nurse Practitioner Family
DX: Z79.891 Long term (current) use of opiate analgesic (principal); M16.12 Unilateral primary osteoarthritis, left hip; M96.1 Postlaminectomy syndrome, not elsewhere classified; M25.552 Pain in left hip; G89.29 Other chronic pain; G57.02 Lesion of sciatic nerve, left lower limb
CPT/HCPCS: 99214

== ENCOUNTER → 2023-05-13 10:11 | Outpatient (BNVA) | payer OTHER, SELFPAY | PROVIDERS: PCP Internal Medicine; Visit Provider Nurse Practitioner Family | DX: Z51.81 Encounter for therapeutic drug level monitoring (principal); F11.20 Opioid dependence, uncomplicated; M16.12 Unilateral primary osteoarthritis, left hip; M96.1 Postlaminectomy syndrome, not elsewhere classified; M25.552 Pain in left hip; G57.02 Lesion of sciatic nerve, left lower limb; G89.29 Other chronic pain; Z79.891 Long term (current) use of opiate analgesic | CPT/HCPCS: 99212 ==

== ENCOUNTER 2023-05-25 06:03 | Outpatient (REF) | payer OTHER, SELFPAY | END 2023-05-25 06:04 | disposition home or self-care (01) | LOC: CF 06:03 | PROVIDERS: Visit Provider Anesthesiology | DX: M16.12 Unilateral primary osteoarthritis, left hip (principal); M96.1 Postlaminectomy syndrome, not elsewhere classified; M51.36 Other intervertebral disc degeneration, lumbar region; M25.552 Pain in left hip; G89.29 Other chronic pain; G57.02 Lesion of sciatic nerve, left lower limb; Z79.891 Long term (current) use of opiate analgesic | CPT/HCPCS: 20552; J2795; J3301 ==

== ENCOUNTER 2023-05-25 09:05 | Outpatient (AMB) | payer OTHER, SELFPAY ==
[2023-05-25 09:12] VITALS: BP 110/58; BP 116/60; PULSE 77; PULSE 97; RESP 14; O2SAT 97; O2SAT 98; BMI 22.9
--- NOTE | 2023-05-25 09:12 | A.OFFVIS_ITS ---
Intake Vital Signs 05/25/23 09:12 05/25/23 09:12 Height 5 ft 9 in 5 ft 9 in Weight 155 lb 155 lb BMI 22.9 22.9 BP 110/58 L 116/60 Blood Pressure Location Lt brachial Lt brachial Position Sitting Sitting Respiration 14 14 Pulse 97 77 Pulse Source Pulse Oximeter Pulse Oximeter Pulse Oximetry (%) 98 97 Oxygen Delivery Method Room Air Room Air Comment pre-op post-op Intake Visit Reasons: L STEROID PIRIFORMIS MUSCLE INJ W/ US Allergies gadopentetic acid [From Magnevist] Allergy (Unknown, Verified 05/25/23 10:08) Vomiting nitrofurantoin [From Macrobid] Allergy (Unknown, Verified 05/25/23 10:08) Swelling sulfamethoxazole [From Bactrim] Allergy (Unknown, Verified 05/25/23 10:08) Hives trimethoprim [From Bactrim] Allergy (Unknown, Verified 05/25/23 10:08) Hives Gadopentetate Allergy (Unknown, Uncoded 01/18/23 10:32) Vomiting PFSH Medical History Dyspnea Periodic limb movement disorder Splenomegaly Leukopenia Neurogenic bladder disorder Paroxysmal hemicrania Constipation Hypothyroidism Vitamin D deficiency GERD (gastroesophageal reflux disease) Hypertension Frequent UTI Pre-diabetes Urinary urgency Medical marijuana use Edema leg Hyperlipidemia Depression Surgical History H/O: History of back surgery H/O: hysterectomy Family History Mother Rheumatoid arthritis Thyroid cancer Father Rheumatoid arthritis Maternal Grandmother Lung cancer Maternal Grandfather Rectal cancer Maternal Aunt Thyroid cancer Social History Alcohol intake: current Alcohol intake frequency: holidays/special occasions only Patient Tobacco Use Status: Former Tobacco user Physical Exam Vital Signs: Last Vital Signs Pulse 77 05/25/23 09:12 Resp 14 05/25/23 09:12 BP 116/60 05/25/23 09:12 Pulse Ox 97 05/25/23 09:12 Oxygen Delivery Method Room Air 05/25/23 09:12 BMI result Body Mass Index 22.9 Assessment & Plan Assessment & Plan (1) Opioid contract exists: Code(s): 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 (2) Degenerative joint disease of left hip: Code(s): M16.12 - Unilateral primary osteoarthritis, left hip (3) Failed back syndrome of lumbar spine: Code(s): M96.1 - Postlaminectomy syndrome, not elsewhere classified (4) Lumbar degenerative disc disease: Code(s): M51.36 - Other intervertebral disc degeneration, lumbar region (5) Chronic left hip pain: Code(s): M25.552 - Pain in left hip; G89.29 - Other chronic pain (6) Piriformis syndrome of left side: Comment: 04/27/23: left diagnostic piriformis muscle injection with 80% pain relief for 12 hours, 50% relief x1 week Code(s): G57.02 - Lesion of sciatic nerve, left lower limb Plan: Left therapeutic piriformis muscle injection. Informed consent was explained thoroughly to the patient. All questions about benefits and risks for the procedure were answered. Patient came to theexamination room and was positioned prone on the bed with the pillow under the pelvis. Time out was performed delineating name and of the patient, allergies and the nature of the procedure. The lower back and left buttock of the patient were prepped with ChloraPrep prepped and draped with sterile utility towels. Sterilily draped US probe was brought over the operating field and picture of patient's gluteus henny muscle and underlying periformis muscle at the point approximately 3-4 cm away from insertion site of the piriformis muscle was demonstrated on the ultrasound screen. After [id number] mm Echostim needle was inserted extra anatomically and advanced toward the body of piriformis muscle under direct US guidance. when tip of the needle was detected inside the piriformis muscle body injection of saline was perform demonstrating spread of the saline within the body of piriformis muscle. After that 8 mls of Ropivacaine 0.5% mixed with Kenalog 40 mg was injected into the piriformis muscle without complications. The patient had difficulty tolerating the procedure because of limited extremities mobility, and required multiple adjustment to position her prone. Eventually the procedure was completed without complications. Orders: Orders [place] guidance in treatment room 05/25/23 G57.02 - Lesion of sciatic nerve, left lower limb Coding Level of Care Code Procedure Only Diagnoses Opioid contract exists Z79.891 Degenerative joint disease of left hip M16.12 Failed back syndrome of lumbar spine M96.1 Lumbar degenerative disc disease M51.36 Chronic left hip pain M25.552; G89.29 Piriformis syndrome of left side G57.02
== END 2023-05-25 09:45 | disposition home or self-care (01) ==
LOC: HO.PMCPRC 09:05
PROVIDERS: PCP Internal Medicine; Visit Provider Anesthesiology
DX: M79.18 Myalgia, other site (principal); M16.12 Unilateral primary osteoarthritis, left hip; M96.1 Postlaminectomy syndrome, not elsewhere classified; M51.36 Other intervertebral disc degeneration, lumbar region; M25.552 Pain in left hip; G89.29 Other chronic pain; G57.02 Lesion of sciatic nerve, left lower limb
CPT/HCPCS: 20552; 76942

== ENCOUNTER 2023-06-14 09:45 | Outpatient (AMB) | payer OTHER, SELFPAY ==
--- NOTE | 2023-06-14 09:47 | MHC.OFFVIS ---
Intake Vital Signs 06/14/23 09:56 Height 5 ft 9 in Weight 163 lb BMI 24.1 BP 127/77 Blood Pressure Location Lt brachial Position Sitting Pulse 81 Pulse Source Pulse Oximeter Pulse Oximetry (%) 96 Oxygen Delivery Method Room Air Intake Visit Reasons: Pill count/confirmed Intake Note: Maria comes in today for a pill count to oxycodone-acetaminophen, patient should have 51 tablets and presents with 69 tablets which she last took last night 06/13/23 at 8pm. 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 Patient is supposed to have #51 pills, in her possession has #69 pills. This demonstrates a responsible attitude in regards to the medication regimen. Patient reports adequate analgesia on her current regime of oxycodone-acetaminophen 5 mg TID prn with no noted side effects. Denies any fever, constipation, shortness of breaths, nausea, sedation, dizziness, or urinary retention. Patient reports no left buttock pain with prolonged sitting since left therapeutic piriformis muscle injection on 05/25/23. PFSH Medical History Dyspnea Periodic limb movement disorder Splenomegaly Leukopenia Neurogenic bladder disorder Paroxysmal hemicrania Constipation Hypothyroidism Vitamin D deficiency GERD (gastroesophageal reflux disease) Hypertension Frequent UTI Pre-diabetes Urinary urgency Medical marijuana use Edema leg Hyperlipidemia Depression Surgical History H/O: History of back surgery H/O: hysterectomy Family History Mother Rheumatoid arthritis Thyroid cancer Father Rheumatoid arthritis Maternal Grandmother Lung cancer Maternal Grandfather Rectal cancer Maternal Aunt Thyroid cancer Alcohol intake: current Alcohol intake frequency: holidays/special occasions only Patient Tobacco Use Status: Former Tobacco user Review of Systems Const All systems reviewed & are unremarkable except as noted in HPI and below Physical Exam Vital Signs: Last Vital Signs Pulse 81 06/14/23 09:56 BP 127/77 06/14/23 09:56 Pulse Ox 96 06/14/23 09:56 Oxygen Delivery Method Room Air 06/14/23 09:56 BMI result Body Mass Index 24.1 General: Appears afebrile. Alert and oriented. Mood and affect appropriate. Follows and participates in conversation appropriately. Respiratory effort is unlabored. Sits comfortably in motorized wheelchair but frequently adjusts her sitting position. Psych Appearance: grossly normal and well kempt Mental Status: mental status grossly normal Speech and movement: Normal speech and movement present and Clear speech present Affect: normal affect Attitude: cooperative Thought process: Normal thought process present Thought content: Normal thought content present, suicidality (none), no hallucinations and No Depressive thoughts present Insight: Good insight present (Psych) Judgement: Good judgement present (Psych) Assessment & Plan Assessment & Plan (1) Opioid contract exists: Code(s): Z79.891 - residential (current) use of opiate analgesic (2) Degenerative joint disease of left hip: Code(s): M16.12 - Unilateral primary osteoarthritis, left hip (3) Failed back syndrome of lumbar spine: Code(s): M96.1 - Postlaminectomy syndrome, not elsewhere classified (4) Chronic left hip pain: Code(s): M25.552 - Pain in left hip; G89.29 - Other chronic pain Plan Patient has shown accountability for her medication regimen and the pill count was accurate. There is no evidence of misuse, abuse or diversion at this time. [employer] reviewed. Script for oxycodone-acetaminophen 5 mg TID prn sent with advanced date of 06/30/23. Continue home PT and HEP. Patient reports excellent results with recent Left Piriformis therapeutic injection on 05/25/[address] Block. All questions were answered and the patient is in agreement with the plan. Follow up in one month for a pill count or sooner if needed. Medications: Refilled oxycodone-acetaminophen 5-325 mg Partial Fill upon patient request. 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
[2023-06-14 09:56] VITALS: BP 127/77; PULSE 81; O2SAT 96; BMI 24.1
== END 2023-06-14 10:16 | disposition home or self-care (01) ==
PROVIDERS: PCP Internal Medicine; Visit Provider Nurse Practitioner Family
DX: G89.29 Other chronic pain (principal); M16.12 Unilateral primary osteoarthritis, left hip; M96.1 Postlaminectomy syndrome, not elsewhere classified; Z79.891 Long term (current) use of opiate analgesic; M25.552 Pain in left hip
CPT/HCPCS: 99214

== ENCOUNTER → 2023-06-14 09:45 | Outpatient (BNVA) | payer OTHER, SELFPAY | PROVIDERS: PCP Internal Medicine; Visit Provider Nurse Practitioner Family | DX: G47.61 Periodic limb movement disorder (principal); M16.12 Unilateral primary osteoarthritis, left hip; M25.552 Pain in left hip; G89.29 Other chronic pain; M96.1 Postlaminectomy syndrome, not elsewhere classified; F12.90 Cannabis use, unspecified, uncomplicated; Z79.891 Long term (current) use of opiate analgesic | CPT/HCPCS: 99212 ==

== ENCOUNTER → 2023-07-13 09:45 | Outpatient (BNVA) | payer OTHER, SELFPAY | PROVIDERS: PCP Internal Medicine; Visit Provider Nurse Practitioner Family ==

== ENCOUNTER 2023-08-12 09:21 | Outpatient (AMB) | payer OTHER, SELFPAY ==
--- NOTE | 2023-08-12 09:24 | MHC.OFFVIS ---
Intake Vital Signs 08/12/23 09:34 Height 5 ft 9 in Weight 162 lb BMI 23.9 BP 100/52 L Blood Pressure Location Lt brachial Position Sitting Pulse 70 Pulse Source Pulse Oximeter Pulse Oximetry (%) 96 Oxygen Delivery Method Room Air Intake Visit Reasons: PILL COUNT/confirmed Intake Note: Maria comes in today for a pill count to oxycodone-acetaminophen, patient should have 42 tablets and presents with 75 tablets which she last took yesterday 08/11/23 at 12pm. Pain today 12/26 Patient also resigned updated opioid contract in office today, copy of signed contract was provided to patient. It Software Developer Required: No Accompanied by: Self / Same As Patient Allergies gadopentetic acid [From Magnevist] Allergy (Unknown, Verified 08/12/23 09:36) Vomiting nitrofurantoin [From Macrobid] Allergy (Unknown, Verified 08/12/23 09:36) Swelling sulfamethoxazole [From Bactrim] Allergy (Unknown, Verified 08/12/23 09:36) Hives trimethoprim [From Bactrim] Allergy (Unknown, Verified 08/12/23 09:36) Hives Gadopentetate Allergy (Unknown, Uncoded 01/18/23 10:32) Vomiting HPI HPI Comments History of Present Illness Details Patient presents today for a pill count. Patient is supposed to have #42 pills, in her possession has #75 pills. This demonstrates a responsible attitude in regards to the medication regimen. Patient reports adequate analgesia on her current regime of oxycodone-acetaminophen 5 mg TID prn with no noted side effects. Patient reports good and bad days and tries not to take pain medication when she has good day or mild pain. Denies any fever, constipation, shortness of breaths, nausea, sedation, dizziness, or urinary retention. Patient reports effects of left therapeutic piriformis muscle injection on 05/25/23 have been fading out and her left buttock has been reoccuring at times. [facility], LAT[facility] Medical History Dyspnea Periodic limb movement disorder Splenomegaly Leukopenia Neurogenic bladder disorder Paroxysmal hemicrania Constipation Hypothyroidism Vitamin D deficiency GERD (gastroesophageal reflux disease) Hypertension Frequent UTI Pre-diabetes Urinary urgency Medical marijuana use Edema leg Hyperlipidemia Depression Surgical History H/O: History of back surgery H/O: hysterectomy Family History Mother Rheumatoid arthritis Thyroid cancer Father Rheumatoid arthritis Maternal Grandmother Lung cancer Maternal Grandfather Rectal cancer Maternal Aunt Thyroid cancer Social History Alcohol intake: current Alcohol intake frequency: holidays/special occasions only Patient Tobacco Use Status: Former Tobacco user Review of Systems Const All systems reviewed & are unremarkable except as noted in HPI and below Physical Exam Vital Signs: Last Vital Signs Pulse 70 08/12/23 09:34 BP 100/52 L 08/12/23 09:34 Pulse Ox 96 08/12/23 09:34 Oxygen Delivery Method Room Air 08/12/23 09:34 BMI result Body Mass Index 23.9 General: Appears afebrile. Alert and oriented. Mood and affect appropriate. Follows and participates in conversation appropriately. Respiratory effort is unlabored. Sits comfortably in motorized wheelchair but frequently adjusts her sitting position. Psych Appearance: grossly normal and well kempt Mental Status: mental status grossly normal Speech and movement: Normal speech and movement present and Clear speech present Affect: normal affect Attitude: cooperative Thought process: Normal thought process present Thought content: Normal thought content present, suicidality (none), no hallucinations and No Depressive thoughts present Insight: Good insight present (Psych) Judgement: Good judgement present (Psych) Results Reviewed Results Reviewed: MR HIP WITHOUT CONTRAST, LEFT 01/28/22 MRI FEMUR WITHOUT CONTRAST, LEFT 01/28/22 CLINICAL INFORMATION: Left hip pain and left leg pain. Multiple sclerosis. FINDINGS: LEFT HIP: BONES AND ARTICULAR CARTILAGE: Severe osteoarthritis at the left hip is characterized by complete, full-thickness articular cartilage loss at the superior aspect of the left hip joint with articular cortical remodeling, subarticular cystic change and edema, marginal osteophytes and loose body formation. The flattening of the femoral head is likely due to articular cortical remodeling. Bone loss is also suspected at the sourcil. The labrum is markedly degenerated. There is slight lateral translation and uncovering of the femoral head relative to the acetabular roof. An underlying component of hip dysplasia is possible, though not well assessed on these images given the articular cortical remodeling and bone loss. No fracture or malalignment. No evidence of avascular necrosis. Minimal osteoarthritis in the right hip and SI joints. Pubic symphysis is normal. MUSCLES AND TENDONS: There is edema signal around the origin of the rectus femoris at the anterior superior iliac spine and lateral acetabular rim, reactive to the adjacent arthritis of the hip joint. No tears. Mild tendinosis. There is [id number] fatty atrophy of the gluteus minimus muscle. Musculature is otherwise unremarkable. JOINT FLUID AND BURSAE: Moderate-sized left hip joint effusion. Multiple low signal intensity intra-articular loose bodies are identified, measuring up to 6 mm in diameter. No bursitis. LIGAMENTUM TERES: Chronically torn and degenerated. INTRAPELVIC SOFT TISSUES: No acute intrapelvic abnormalities are identified. Colonic diverticulosis. No adenopathy. LEFT FEMUR: BONES AND CARTILAGE: Osteoarthritis at the left knee is only partially imaged on this study likely most pronounced at the lateral compartment where there is subchondral edema and cortical irregularity in addition to the cartilage loss and marginal osteophytes. No fractures or stress reactions. No osseous lesions. MUSCLES AND TENDONS: There is intramuscular edema signal within the vastus lateralis muscle which is most pronounced distally, potentially due to a muscle strain or contusion. Denervation is also possible, though felt to be less likely. Tendons appear intact. There is mild generalized muscle atrophy without more focal regions of fatty replacement. JOINT FLUID AND BURSAE: Small left knee joint effusion. No bursitis. LYMPHOVASCULAR STRUCTURES: Unremarkable. No adenopathy. IMPRESSION: Severe osteoarthritis in the left hip with articular surface remodeling, bone loss and subchondral cystic change. Mild rectus femoris tendinosis. No tears. Moderate-sized left hip joint effusion with small intra-articular chondral loose bodies. Mild intramuscular edema in the vastus lateralis muscle is most pronounced in the distal thigh and could correspond to a strain or contusion. Denervation is also on the differential, though felt to be less likely in the absence of more pronounced atrophy. Osteoarthritis at the knee is partially imaged on this study and most pronounced in the lateral compartment. 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 There is no evidence of misuse, abuse or diversion at this time. [employer] reviewed. Script for oxycodone-acetaminophen 5 mg TID prn sent with advanced date of 09/04/23. Patient states she has Narcan at home. Continue home exercise program and pressure relief and cushioning for left buttock. All questions were answered and the patient is in agreement with the plan. Follow up in one month for a pill count or sooner if needed. Medications: Refilled oxycodone-acetaminophen 5-325 mg Partial Fill upon patient request. 1 tab PO Q8H 30 days PRN 90 tabs 0RF pain G89.29 - Other chronic pain, M16.12 - Unilateral primary osteoarthritis, left hip, M25.552 - Pain in left hip, M96.1 - Postlaminectomy syndrome, not elsewhere classified, Z79.891 - [facility] (current) use of opiate analgesic Coding Level of Care Code Est Pt Level 4 (72358) Diagnoses Opioid contract exists Z79.891 Degenerative joint disease of left hip M16.12 Failed back syndrome of lumbar spine M96.1 Chronic left hip pain M25.552; G89.29
[2023-08-12 09:34] VITALS: BP 100/52; PULSE 70; O2SAT 96; BMI 23.9
== END 2023-08-12 09:42 | disposition home or self-care (01) ==
PROVIDERS: PCP Internal Medicine; Visit Provider Nurse Practitioner Family
DX: G89.29 Other chronic pain (principal); M25.552 Pain in left hip; M96.1 Postlaminectomy syndrome, not elsewhere classified; Z79.891 Long term (current) use of opiate analgesic; M16.12 Unilateral primary osteoarthritis, left hip
CPT/HCPCS: 99214

== ENCOUNTER → 2023-08-12 09:21 | Outpatient (BNVA) | payer OTHER, SELFPAY | PROVIDERS: PCP Internal Medicine; Visit Provider Nurse Practitioner Family | DX: Z51.81 Encounter for therapeutic drug level monitoring (principal); M16.12 Unilateral primary osteoarthritis, left hip; M96.1 Postlaminectomy syndrome, not elsewhere classified; M25.552 Pain in left hip; G89.29 Other chronic pain; Z79.891 Long term (current) use of opiate analgesic | CPT/HCPCS: 99212 ==

== ENCOUNTER 2023-09-09 08:36 | Outpatient (AMB) | payer OTHER, SELFPAY ==
--- NOTE | 2023-09-09 08:45 | A.OFFVIS_ITS ---
Intake Vital Signs 3 09/09/23 08:55 Height 5 ft 9 in Weight 164 lb BMI 24.2 BP 104/52 L Blood Pressure Location Lt brachial Position Sitting Pulse 63 Pulse Source Pulse Oximeter Pulse Oximetry (%) 98 Oxygen Delivery Method Room Air Intake Visit Reasons: Pill Count/confirmed Intake Note: Maria comes in today for a pill count to oxycodone-acetaminophen, patient should have 81 tablets and presents with 90 tablets which she last took last night 09/08/23 at 8pm. Pain today 07/28. 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 Patient is supposed to have #81 pills, in her possession has #90 pills. This demonstrates a responsible attitude in regards to the medication regimen. Patient reports adequate analgesia on her current regime of oxycodone-acetaminophen 5 mg TID prn with no noted side effects. Patient reports she is attending physical therapy at [facility] and will be undergoing a robotics walking device for gait training. She remains in wheelchair or recliner most of her time during the day due to MS and chronic left hip pain. Denies any fever, constipation, shortness of breaths, nausea, sedation, dizziness, or urinary retention. Past Procedures: 05/25/23: Left Therapeutic Piriformis Mu scle Injection-70% pain relief 04/27/23: Left Diagnostic Piriformis Mus juan r Injection-80% pain relief x12 hours PFSH Medical History Dyspnea Periodic limb movement disorder Splenomegaly Leukopenia Neurogenic bladder disorder Paroxysmal hemicrania Constipation Hypothyroidism Vitamin D deficiency GERD (gastroesophageal reflux disease) Hypertension Frequent UTI Pre-diabetes Urinary urgency Medical marijuana use Edema leg Hyperlipidemia Depression Surgical History H/O: History of back surgery H/O: hysterectomy Family History Mother Rheumatoid arthritis Thyroid cancer Father Rheumatoid arthritis Maternal Grandmother Lung cancer Maternal Grandfather Rectal cancer Maternal Aunt Thyroid cancer Social History Alcohol intake: current Alcohol intake frequency: holidays/special occasions only Patient Tobacco Use Status: Former Tobacco user Review of Systems Const All systems reviewed & are unremarkable except as noted in HPI and below Physical Exam General: Appears afebrile. Alert and oriented. Mood and affect appropriate. Pleasant. Follows and participates in conversation appropriately. Respiratory effort is unlabored. No cough. Sits comfortably in motorized wheelchair. Extrem General: Yes capillary refill normal, Yes no clubbing, cyanosis or edema and Yes no calf tenderness Psych Appearance: grossly normal and well kempt Mental Status: mental status grossly normal Speech and movement: Normal speech and movement present and Clear speech present Affect: normal affect Attitude: cooperative Thought process: Normal thought process present Thought content: Normal thought content present, suicidality (none), no hallucinations and No Depressive thoughts present Insight: Good insight present (Psych) Judgement: Good judgement present (Psych) Results Reviewed Results Reviewed: MR HIP WITHOUT CONTRAST, LEFT 01/28/22 MRI FEMUR WITHOUT CONTRAST, LEFT 01/28/22 CLINICAL INFORMATION: Left hip pain and left leg pain. Multiple sclerosis. FINDINGS: LEFT HIP: BONES AND ARTICULAR CARTILAGE: Severe osteoarthritis at the left hip is characterized by complete, full-thickness articular cartilage loss at the superior aspect of the left hip joint with articular cortical remodeling, subarticular cystic change and edema, marginal osteophytes and loose body formation. The flattening of the femoral head is likely due to articular cortical remodeling. Bone loss is also suspected at the sourcil. The labrum is markedly degenerated. There is slight lateral translation and uncovering of the femoral head relative to the acetabular roof. An underlying component of hip dysplasia is possible, though not well assessed on these images given the articular cortical remodeling and bone loss. No fracture or malalignment. No evidence of avascular necrosis. Minimal osteoarthritis in the right hip and SI joints. Pubic symphysis is normal. MUSCLES AND TENDONS: There is edema signal around the origin of the rectus femoris at the anterior superior iliac spine and lateral acetabular rim, reactive to the adjacent arthritis of the hip joint. No tears. Mild tendinosis. There is oerp-[id number]-[id number] fatty atrophy of the gluteus minimus muscle. Musculature is otherwise unremarkable. JOINT FLUID AND BURSAE: Moderate-sized left hip joint effusion. Multiple low signal intensity intra-articular loose bodies are identified, measuring up to 6 mm in diameter. No bursitis. LIGAMENTUM TERES: Chronically torn and degenerated. INTRAPELVIC SOFT TISSUES: No acute intrapelvic abnormalities are identified. Colonic diverticulosis. No adenopathy. LEFT FEMUR: BONES AND CARTILAGE: Osteoarthritis at the left knee is only partially imaged on this study likely most pronounced at the lateral compartment where there is subchondral edema and cortical irregularity in addition to the cartilage loss and marginal osteophytes. No fractures or stress reactions. No osseous lesions. MUSCLES AND TENDONS: There is intramuscular edema signal within the vastus lateralis muscle which is most pronounced distally, potentially due to a muscle strain or contusion. Denervation is also possible, though felt to be less likely. Tendons appear intact. There is mild generalized muscle atrophy without more focal regions of fatty replacement. JOINT FLUID AND BURSAE: Small left knee joint effusion. No bursitis. LYMPHOVASCULAR STRUCTURES: Unremarkable. No adenopathy. IMPRESSION: Severe osteoarthritis in the left hip with articular surface remodeling, bone loss and subchondral cystic change. Mild rectus femoris tendinosis. No tears. Moderate-sized left hip joint effusion with small intra-articular chondral loose bodies. Mild intramuscular edema in the vastus lateralis muscle is most pronounced in the distal thigh and could correspond to a strain or contusion. Denervation is also on the differential, though felt to be less likely in the absence of more pronounced atrophy. Osteoarthritis at the knee is partially imaged on this study and most pronounced in the lateral compartment. Assessment & Plan Assessment & Plan (1) Opioid contract exists: Code(s): Z79.891 - residential (current) use of opiate analgesic (2) Degenerative joint disease of left hip: Code(s): M16.12 - Unilateral primary osteoarthritis, left hip (3) Failed back syndrome of lumbar spine: Code(s): M96.1 - Postlaminectomy syndrome, not elsewhere classified (4) Chronic left hip pain: Code(s): M25.552 - Pain in left hip; G89.29 - Other chronic pain Plan Patient has shown accountability for her medication regimen and the pill count was accurate. There is no evidence of misuse, abuse or diversion at this time. [employer] reviewed. Script for oxycodone-acetaminophen 5 mg TID prn sent with advanced date of 10/06/23. Patient states she has Narcan at home. Continue home exercise program and PT at [facility]. All questions were answered and the patient is in agreement with the plan. Follow up in one month for a pill count or sooner if needed. Medications: Refilled 2 oxycodone-acetaminophen 5-325 mg Partial Fill upon patient request. 1 tab PO Q8H PRN 90 tabs 0RF pain 30 days G89.29 - Other chronic pain, M16.12 - Unilateral primary osteoarthritis, left hip, M25.552 - Pain in left hip, M96.1 - Postlaminectomy syndrome, not elsewhere classified, Z79.891 - residential (current) use of opiate analgesic Coding Level of Care Code Est Pt Level 4 (13323) Diagnoses Opioid contract exists Z79.891 Degenerative joint disease of left hip M16.12 Failed back syndrome of lumbar spine M96.1 Chronic left hip pain M25.552; G89.29
[2023-09-09 08:55] VITALS: BP 104/52; PULSE 63; O2SAT 98; BMI 24.2
== END 2023-09-09 09:03 | disposition home or self-care (01) ==
PROVIDERS: PCP Internal Medicine; Visit Provider Nurse Practitioner Family
DX: Z79.891 Long term (current) use of opiate analgesic (principal); M16.12 Unilateral primary osteoarthritis, left hip; M96.1 Postlaminectomy syndrome, not elsewhere classified; M25.552 Pain in left hip; G89.29 Other chronic pain
CPT/HCPCS: 99214

== ENCOUNTER → 2023-09-09 08:36 | Outpatient (BNVA) | payer OTHER, SELFPAY | PROVIDERS: PCP Internal Medicine; Visit Provider Nurse Practitioner Family | DX: Z51.81 Encounter for therapeutic drug level monitoring (principal); M16.12 Unilateral primary osteoarthritis, left hip; M96.1 Postlaminectomy syndrome, not elsewhere classified; M25.552 Pain in left hip; G89.29 Other chronic pain; Z79.891 Long term (current) use of opiate analgesic | CPT/HCPCS: 99212 ==

== ENCOUNTER 2024-02-14 09:16 | Outpatient (AMB) | payer OTHER, SELFPAY ==
--- NOTE | 2024-02-14 09:26 | A.OFFVIS_ITS ---
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 She was last seen in our office August for medical pain management and unfortunately was suspended from opioid program due to taking more opioid medication than daily prescribed dose thus causing her current pill count to be 5 days short. Given her moderate risk for opioid abuse, the patient was suspended for one year. Today, she presents with lumbar radiculopathy in projection of left L3-L4 distribution. She reports most of her daily activities are spend while utilizing wheelchair due to MS. She also has chronic left hip pain and bilateral weakness, worse on the right. She had previous back surgery 10-11 years ago with painful hardware removal without improving her symptoms or functioning. Patient has completed multiple courses of PT at [facility] and home and has completed robotics walking device for gait training this year. We will proceed with updating her lumbar spine MRI prior to any interventional treatment and follow up on previous MRI findings as noted below. Denies any fever, abdominal or groin pain, burning or tingling pain, bowel dysfunction or saddle anesthesia. Reports chronic UTI with episodic urinary incontinence and chronic paresthesia sensations in her both legs. Past Procedures: 05/25/23: Left Therapeutic Piriformis Muscle Injection-70% pain relief 04/27/23: Left Diagnostic Piriformis Muscle Injection-80% pain relief x12 hours [facility] Medical History Dyspnea Periodic limb movement disorder Splenomegaly Leukopenia Neurogenic bladder disorder Paroxysmal hemicrania Constipation Hypothyroidism Vitamin D deficiency GERD (gastroesophageal reflux disease) Hypertension Frequent UTI Pre-diabetes Urinary urgency Medical marijuana use Edema leg Hyperlipidemia Depression Surgical History H/O: History of back surgery H/O: hysterectomy Family History Mother Rheumatoid arthritis Thyroid cancer Father Rheumatoid arthritis Maternal Grandmother Lung cancer Maternal Grandfather Rectal cancer Maternal Aunt Thyroid cancer Social History Alcohol intake: current Alcohol intake frequency: holidays/special occasions only Patient Tobacco Use Status: Former Tobacco user Review of Systems Const All systems reviewed & are unremarkable except as noted in HPI and below Physical Exam Vital Signs: Last Vital Signs Pulse 66 02/14/24 09:28 BP 98/57 L 02/14/24 09:28 Pulse Ox 96 02/14/24 09:28 Oxygen Delivery Method Room Air 02/14/24 09:28 BMI result Body Mass Index 22.6 General: Appears afebrile. Alert and oriented. Mood and affect appropriate. Pleasant. Follows and participates in conversation appropriately. Respiratory effort is unlabored. No cough. Sits comfortably in motorized wheelchair. General: Yes no CVA tenderness Back/Spine/Pelvis Other: Limited back exam due to pain and mobility limitations due to MS. Lumbar flexion and extension reproduces moderate symptoms. Painful facet loading. Back: no CVA tenderness Cervical Spine: cervical ROM normal, cervical muscular tenderness and No Cervical spine tenderness Thoracic/Lumbar Spine: thoracic and lumbar spine normal to inspection, Thoracic/lumbar spine scar(s), Lasegue's sign positive on the right and localized, pain with thoraco-lumbar ROM, paraspinal muscle tenderness, thoraco- lumbar ROM limited, No thoracic spinal tenderness and lumbar spinal tenderness (L3-S1) Pelvis: buttock tenderness bilaterally Sacroiliac joints: bilaterally tender to palpation Extrem General: Yes capillary refill normal, Yes no clubbing, cyanosis or edema and Yes no calf tenderness Psych Appearance: grossly normal and well kempt Mental Status: mental status grossly normal Speech and movement: Normal speech and movement present and Clear speech present Affect: normal affect Attitude: cooperative Thought process: Normal thought process present Thought content: Normal thought content present, suicidality (none), no hallucinations and No Depressive thoughts present Insight: Good insight present (Psych) Judgement: Good judgement present (Psych) Results Reviewed Results Reviewed: Assessment & Plan Assessment & Plan (1) Lumbar degenerative disc disease: Code(s): M51.36 - Other intervertebral disc degeneration, lumbar region Category: Medical (2) Failed back syndrome of lumbar spine: Code(s): M96.1 - Postlaminectomy syndrome, not elsewhere classified Category: Medical (3) Lumbar radiculopathy: Code(s): M54.16 - Radiculopathy, lumbar region Category: Medical (4) Paresthesia of right lower extremity: Code(s): R20.2 - Paresthesia of skin Category: Medical (5) Chronic left hip pain: Code(s): M25.552 - Pain in left hip; G89.29 - Other chronic pain Category: Medical (6) 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 Patient has tried OTC/Rx multiple medications, ice and heat therapy, PT therapy with continued symptoms. We will send request to [facility] for previous operative surgical reports for her back procedures. Patient will return to the clinic to discuss results of the xray findings when it is done and consider interventional therapy as indicated. Orders: Orders 2 MR lumbar spine wo/w con Today G35 - Multiple sclerosis, G83.9 - Paralytic syndrome, unspecified, M51.36 - Other intervertebral disc degeneration, lumbar region, M54.16 - Radiculopathy, lumbar region, M96.1 - Postlaminectomy syndrome, not elsewhere classified Coding Level of Care Code Est Pt Level 4 (31801) Diagnoses Lumbar degenerative disc disease M51.36 Failed back syndrome of lumbar spine M96.1 Lumbar radiculopathy M54.16 Paresthesia of right lower extremity R20.2 Chronic left hip pain M25.552; G89.29 Spastic paralysis G83.9 Multiple sclerosis G35
[2024-02-14 09:28] VITALS: BP 98/57; PULSE 66; O2SAT 96; BMI 22.6
== END 2024-02-14 09:55 | disposition home or self-care (01) ==
PROVIDERS: PCP Internal Medicine; Visit Provider Nurse Practitioner Family
DX: M51.36 Other intervertebral disc degeneration, lumbar region (principal); M96.1 Postlaminectomy syndrome, not elsewhere classified; M54.16 Radiculopathy, lumbar region; R20.2 Paresthesia of skin; M25.552 Pain in left hip; G89.29 Other chronic pain; G83.9 Paralytic syndrome, unspecified; G35 Multiple sclerosis
CPT/HCPCS: 99214

== ENCOUNTER → 2024-02-14 09:16 | Outpatient (BNVA) | payer OTHER, SELFPAY | PROVIDERS: PCP Internal Medicine; Visit Provider Nurse Practitioner Family | DX: M51.36 Other intervertebral disc degeneration, lumbar region (principal); M96.1 Postlaminectomy syndrome, not elsewhere classified; M54.16 Radiculopathy, lumbar region; M25.552 Pain in left hip; G35 Multiple sclerosis; G83.9 Paralytic syndrome, unspecified; R20.2 Paresthesia of skin; G89.29 Other chronic pain | CPT/HCPCS: 99212 ==

== ENCOUNTER 2024-07-27 09:48 | Outpatient (AMB) | payer OTHER, SELFPAY ==
[2024-07-27 09:58] VITALS: BMI 22.6
--- NOTE | 2024-07-27 09:58 | A.OFFVIS_ITS ---
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 States her pain started about 1 yr ago due to hip issue. States her pain radiates down her leg at times. She had an injection on on her piriformis about 2 yr ago which helped with her pain for about 5-6 months. She is currently in a wheelchair after having bowel obstruction surgery in October 2023. Denies numbness or tingling in toes. Hx of femur fracture many years ago. States she had an MRI of her lumbar done in 2020 at [facility] which is scanned in chart. Patient previously seen with Pain management. Allergies gadopentetic acid [From Magnevist] Allergy (Unknown, Verified 07/27/24 10:08) Vomiting nitrofurantoin [From Macrobid] Allergy (Unknown, Verified 07/27/24 10:08) Swelling sulfamethoxazole [From Bactrim] Allergy (Unknown, Verified 07/27/24 10:08) Hives trimethoprim [From Bactrim] Allergy (Unknown, Verified 07/27/24 10:08) Hives Gadopentetate Allergy (Unknown, Uncoded 07/27/24 10:08) Vomiting Medication List - Last Reconciled 07/27/24 by Aneta Connor MD acetaminophen mg PO albuterol sulfate 90 mcg/actuation grams inhalation ascorbic acid (vitamin C) (Vitamin C) 500 mg PO atorvastatin 20 mg PO DAILY baclofen 10 mg PO BID PRN bupropion HCl XL 150 mg PO DAILY carvedilol 3.125 mg PO BID cholecalciferol (vitamin D3) (Vitamin D3) 2,000 units PO epinephrine 0.3 mL IM ONCE PRN estradiol 0.01%(0.1mg/gram) vaginal furosemide 20 mg PO DAILY PRN immun glob G(IgG)-gly-IgA ov50 10 gram/50 mL (20 %) (Cuvitru) mL subcut immun glob G(IgG)-gly-IgA ov50 2 gram/10 mL (20 %) (Cuvitru) mL subcut levothyroxine 25 mcg PO naloxone 4 mg/actuation (Narcan) 4 mg intranasal Q2M PRN omeprazole 20 mg PO DAILY polyethylene glycol 3350 (Gavilax) grams PO spironolactone 25 mg PO tizanidine 2 mg PO TID PRN 30 days tolterodine 2 mg PO DAILY PRN valsartan 80 mg PO DAILY HPI Comments Details: Left chronic hip pain, lateral side, does not go to the groin, goes to the buttocks. Does not go past the knee. Extreme pain. Denies numbness. Can't stand up without assistance. Low functional mobility even before bowel surgery in October 2023, used to at least stand pivot transfers, but now unable to stand independently at all. She has an aide at home, has a slide board. Aide not here today. History of lumbar surgery 11 years ago, L4,5,S1 fusion, can't remember who the surgeon. Still has cage. She is here though for left hip chronic pain. Used to go to [facility]. Had seen [facility] for the hip and they didn't think she was a good candidate for hip replacement, patient was poorly walking even back 5 years ago. Patient previously seen by [facility] for chronic left-sided hip and back pain. She received piriformis injections. She was also discontinued from the clinic due to misuse of opiate medication or violation of contract. She says piriformis injection helped for long time, even for the hip pain. Apparently Emiliana thought possibility of piriformis botox injection but Dr. Tomas thought that I (physiatry) could do it, however they did not consult/ask with me first (this is based on workload messages). Patient says she thinks her daughter may have thought about the possibility of botox to piriformis. MRI lumbar done in 2020 at [facility], reported postoperative and degenerative changes with interval hardware removal from L4-S1 levels, increased degenerative disc changes L1-L4 levels with canal stenosis and neural foraminal narrowing. MRI femur/hip 2021 report below. [facility] Medical History Dyspnea Periodic limb movement disorder Splenomegaly Leukopenia Neurogenic bladder disorder Paroxysmal hemicrania Constipation Hypothyroidism Vitamin D deficiency GERD (gastroesophageal reflux disease) Hypertension Frequent UTI Pre-diabetes Urinary urgency Medical marijuana use Edema leg Hyperlipidemia Depression Surgical History H/O: History of back surgery H/O: hysterectomy Family History Mother Rheumatoid arthritis Thyroid cancer Father Rheumatoid arthritis Maternal Grandmother Lung cancer Maternal Grandfather Rectal cancer Maternal Aunt Thyroid cancer Social History (Updated 07/27/24 @ 10:10 by ROGELIO Solorio) Alcohol intake: current Alcohol intake frequency: holidays/special occasions only Patient Tobacco Use Status: Former Tobacco user Current occupational status: disabled 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 Patient was appropriately conversant and oriented. Good historian. MSK: Wheelchair-bound. Unable to stand independently. Results Reviewed Results Reviewed: Ordering Physician: Emiliana Henderson Date of Service: 01/28/22 Procedure(s): MR femur LT wo con Accession Number(s): [id number] cc: Emiliana Henderson; Oswald Rowell~ EXAMINATION: MR HIP WITHOUT CONTRAST, LEFT MRI FEMUR WITHOUT CONTRAST, LEFT CLINICAL INFORMATION: Left hip pain and left leg pain. Multiple sclerosis. COMPARISON: None. TECHNIQUE: MRI of the left hip and of the left thigh (separate studies) was obtained using routine sequences on a high-field magnet. FINDINGS: LEFT HIP: BONES AND ARTICULAR CARTILAGE: Severe osteoarthritis at the left hip is characterized by complete, full-thickness articular cartilage loss at the superior aspect of the left hip joint with articular cortical remodeling, subarticular cystic change and edema, marginal osteophytes and loose body formation. The flattening of the femoral head is likely due to articular cortical remodeling. Bone loss is also suspected at the sourcil. The labrum is markedly degenerated. There is slight lateral translation and uncovering of the femoral head relative to the acetabular roof. An underlying component of hip dysplasia is possible, though not well assessed on these images given the articular cortical remodeling and bone loss. No fracture or malalignment. No evidence of avascular necrosis. Minimal osteoarthritis in the right hip and SI joints. Pubic symphysis is normal. MUSCLES AND TENDONS: There is edema signal around the origin of the rectus femoris at the anterior superior iliac spine and lateral acetabular rim, reactive to the adjacent arthritis of the hip joint. No tears. Mild tendinosis. There is clrt-ev-baudzkmy fatty atrophy of the gluteus minimus muscle. Musculature is otherwise unremarkable. JOINT FLUID AND BURSAE: Moderate-sized left hip joint effusion. Multiple low signal intensity intra-articular loose bodies are identified, measuring up to 6 mm in diameter. No bursitis. LIGAMENTUM TERES: Chronically torn and degenerated. INTRAPELVIC SOFT TISSUES: No acute intrapelvic abnormalities are identified. Colonic diverticulosis. No adenopathy. LEFT FEMUR: BONES AND CARTILAGE: Osteoarthritis at the left knee is only partially imaged on this study likely most pronounced at the lateral compartment where there is subchondral edema and cortical irregularity in addition to the cartilage loss and marginal osteophytes. No fractures or stress reactions. No osseous lesions. MUSCLES AND TENDONS: There is intramuscular edema signal within the vastus lateralis muscle which is most pronounced distally, potentially due to a muscle strain or contusion. Denervation is also possible, though felt to be less likely. Tendons appear intact. There is mild generalized muscle atrophy without more focal regions of fatty replacement. JOINT FLUID AND BURSAE: Small left knee joint effusion. No bursitis. LYMPHOVASCULAR STRUCTURES: Unremarkable. No adenopathy. MR/MR femur LT wo con IMPRESSION: Severe osteoarthritis in the left hip with articular surface remodeling, bone loss and subchondral cystic change. Mild rectus femoris tendinosis. No tears. Moderate-sized left hip joint effusion with small intra-articular chondral loose bodies. Mild intramuscular edema in the vastus lateralis muscle is most pronounced in the distal thigh and could correspond to a strain or contusion. Denervation is also on the differential, though felt to be less likely in the absence of more pronounced atrophy. Osteoarthritis at the knee is partially imaged on this study and most pronounced in the lateral compartment. I reviewed records from the following: Pain management Assessment & Plan Assessment & Plan (1) Chronic left hip pain: Code(s): M25.552 - Pain in left hip; G89.29 - Other chronic pain Category: Medical (2) Piriformis syndrome of left side: Comment: 04/27/23: left diagnostic piriformis muscle injection with 80% pain relief for 12 hours, 50% relief x1 week Code(s): G57.02 - Lesion of sciatic nerve, left lower limb Category: Medical (3) Degenerative joint disease of left hip: Code(s): M16.12 - Unilateral primary osteoarthritis, left hip Category: Medical Qualifiers: Osteoarthritis type: unspecified Qualified Code(s): M16.12 - Unilateral primary osteoarthritis, left hip (4) Failed back syndrome of lumbar spine: Code(s): M96.1 - Postlaminectomy syndrome, not elsewhere classified Category: Medical (5) 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 Discussed with patient that I have never done a piriformis Botox injection in the past. It should also be done under ultrasound guidance at the least to avoid toxin spread, which I am not able to do. I also doubt that there is insurance coverage for such diagnosis. Chronic left hip pain. Severe degenerative change seen on the last imaging. Unfortunately not a good candidate for hip replacement. Perhaps pain management can just continue steroid injection to piriformis every 3-6 months, or consider hip intra-articular injection with steroid. Patient to discuss with them. Chronic lower back pain, failed back syndrome, past fusion. Assessment and plan discussed with patient, and patient was agreeable. All questions were answered thoroughly. Only after patient already left and I reviewed her medical records further that I discovered that she has history of MS and had baclofen pump that was removed many years ago. Patient did not mention her history of MS at all. Aneta Connor MD, YONATHAN Board Certified, [place] [employer] and [employer] (ABPMR) Board Certified, [place] [employer] (ABEM) Coding Level of Care Code New Pt Level 3 (66971) Diagnoses Chronic left hip pain M25.552; G89.29 Piriformis syndrome of left side G57.02 Osteoarthritis of left hip, unspecified osteoarthritis type M16.12 Osteoarthritis type: unspecified Failed back syndrome of lumbar spine M96.1 Spastic paralysis G83.9
== END 2024-07-27 10:31 | disposition home or self-care (01) ==
PROVIDERS: PCP Internal Medicine; Visit Provider Physical Medicine & Rehabilitation
DX: M25.552 Pain in left hip (principal); G89.29 Other chronic pain; G57.02 Lesion of sciatic nerve, left lower limb; M16.12 Unilateral primary osteoarthritis, left hip; M96.1 Postlaminectomy syndrome, not elsewhere classified; G83.9 Paralytic syndrome, unspecified
CPT/HCPCS: 99203

== ENCOUNTER → 2024-07-27 09:48 | Outpatient (BNVA) | payer OTHER, SELFPAY | PROVIDERS: PCP Internal Medicine; Visit Provider Physical Medicine & Rehabilitation | DX: M25.552 Pain in left hip (principal); M16.12 Unilateral primary osteoarthritis, left hip; M96.1 Postlaminectomy syndrome, not elsewhere classified; G57.02 Lesion of sciatic nerve, left lower limb; G83.9 Paralytic syndrome, unspecified; G89.29 Other chronic pain | CPT/HCPCS: 99202 ==

== ENCOUNTER 2024-08-18 11:13 | Outpatient (AMB) | payer OTHER, SELFPAY ==
--- NOTE | 2024-08-18 11:14 | MHC.OFFVIS ---
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[employer] Required: No Accompanied by: Self / Same As Patient Allergies gadopentetic acid [From Magnevist] Allergy (Unknown, Verified 08/18/24 11:26) Vomiting nitrofurantoin [From Macrobid] Allergy (Unknown, Verified 08/18/24 11:26) Swelling sulfamethoxazole [From Bactrim] Allergy (Unknown, Verified 08/18/24 11:26) Hives trimethoprim [From Bactrim] Allergy (Unknown, Verified 08/18/24 11:26) Hives gabapentin Adverse Reaction (Verified 08/18/24 11:38) Hallucinations Gadopentetate Allergy (Unknown, Uncoded 07/27/24 10:08) Vomiting HPI Comments Details: Patient presents today for follow up to discuss repeating left piriformis muscle injections for chronic left hip and left buttock pain. Patient reports since last September after abdominal procedure, her MS has been worsening with notable decreased functionality and participation in transfers in and out of her motorized scooter. Her daughter is her primary caregiver and utilized board for transfers. Patient reports worsening left buttock and lateral hip pain with prolonged sitting in her motorized wheelchair or recliner. She requests to repeat therapeutic injection as this has been helpful in the past. Currently she manages her symptoms with Tylenol and Ibuprofen with continued symptoms. She will be eligible to re-enter our opiod program in September upon UDS review. Denies any recent cough, cold, infection, fever or any other significant changes in medical history since last office visit. Denies any changes to medications, medical history or recent hospitalizations. PRIOR 02/14/24: Patient presents today for follow up for worsening lower back pain and left leg pain. She was last seen in our office August for medical pain management and unfortunately was suspended from opioid program due to taking more opioid medication than daily prescribed dose thus causing her current pill count to be 5 days short. Given her moderate risk for opioid abuse, the patient was suspended for one year. Today, she presents with lumbar radiculopathy in projection of left L3-L4 distribution. She reports most of her daily activities are spend while utilizing wheelchair due to MS. She also has chronic left hip pain and bilateral weakness, worse on the right. She had previous back surgery 10-11 years ago with painful hardware removal without improving her symptoms or functioning. Patient has completed multiple courses of PT at [facility] and home and has completed robotics walking device for gait training this year. We will proceed with updating her lumbar spine MRI prior to any interventional treatment and follow up on previous MRI findings as noted below. Denies any fever, abdominal or groin pain, burning or tingling pain, bowel dysfunction or saddle anesthesia. Reports chronic UTI with episodic urinary incontinence and chronic paresthesia sensations in her both legs. Past Procedures: 05/25/23: Left Therapeutic Piriformis Muscle Injection-70% pain relief 04/27/23: Left Diagnostic Piriformis Muscle Injection-80% pain relief x12 hours PFSH Medical History Dyspnea Periodic limb movement disorder Splenomegaly Leukopenia Neurogenic bladder disorder Paroxysmal hemicrania Constipation Hypothyroidism Vitamin D deficiency GERD (gastroesophageal reflux disease) Hypertension Frequent UTI Pre-diabetes Urinary urgency Medical marijuana use Edema leg Hyperlipidemia Depression Surgical History H/O: History of back surgery H/O: hysterectomy Family History Mother Rheumatoid arthritis Thyroid cancer Father Rheumatoid arthritis Maternal Grandmother Lung cancer Maternal Grandfather Rectal cancer Maternal Aunt Thyroid cancer Social History Alcohol intake: current Alcohol intake frequency: holidays/special occasions only Patient Tobacco Use Status: Former Tobacco user Current occupational status: disabled 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 No acute distress. Alert and oriented. Mood and affect appropriate. Follows and participates in conversation appropriately. Respiratory effort is unlabored. No cough. Sits comfortably in motorized wheelchair but frequently adjusts her sitting position. Moderate tenderness in the projection of left piriformis. Left hip lateral tenderness and pain with LLE movements. Moderate TTP to left GTB. Back/Spine/Pelvis Cervical Spine: cervical ROM normal and No Cervical spine tenderness Thoracic/Lumbar Spine: thoracic and lumbar spine normal to inspection, Thoracic/lumbar spine scar(s), pain with thoraco-lumbar ROM, No thoracic spinal tenderness and lumbar spinal tenderness at L4 and at L5 Pelvis: buttock tenderness on the left and no sciatic notch tenderness Sacroiliac joints: bilaterally nontender Results Reviewed Results Reviewed: MR HIP WITHOUT CONTRAST, LEFT 01/28/22 MRI FEMUR WITHOUT CONTRAST, LEFT 01/28/22 CLINICAL INFORMATION: Left hip pain and left leg pain. Multiple sclerosis. FINDINGS: LEFT HIP: BONES AND ARTICULAR CARTILAGE: Severe osteoarthritis at the left hip is characterized by complete, full-thickness articular cartilage loss at the superior aspect of the left hip joint with articular cortical remodeling, subarticular cystic change and edema, marginal osteophytes and loose body formation. The flattening of the femoral head is likely due to articular cortical remodeling. Bone loss is also suspected at the sourcil. The labrum is markedly degenerated. There is slight lateral translation and uncovering of the femoral head relative to the acetabular roof. An underlying component of hip dysplasia is possible, though not well assessed on these images given the articular cortical remodeling and bone loss. No fracture or malalignment. No evidence of avascular necrosis. Minimal osteoarthritis in the right hip and SI joints. Pubic symphysis is normal. MUSCLES AND TENDONS: There is edema signal around the origin of the rectus femoris at the anterior superior iliac spine and lateral acetabular rim, reactive to the adjacent arthritis of the hip joint. No tears. Mild tendinosis. There is azqg-[id number]-[id number] fatty atrophy of the gluteus minimus muscle. Musculature is otherwise unremarkable. JOINT FLUID AND BURSAE: Moderate-sized left hip joint effusion. Multiple low signal intensity intra-articular loose bodies are identified, measuring up to 6 mm in diameter. No bursitis. LIGAMENTUM TERES: Chronically torn and degenerated. INTRAPELVIC SOFT TISSUES: No acute intrapelvic abnormalities are identified. Colonic diverticulosis. No adenopathy. LEFT FEMUR: BONES AND CARTILAGE: Osteoarthritis at the left knee is only partially imaged on this study likely most pronounced at the lateral compartment where there is subchondral edema and cortical irregularity in addition to the cartilage loss and marginal osteophytes. No fractures or stress reactions. No osseous lesions. MUSCLES AND TENDONS: There is intramuscular edema signal within the vastus lateralis muscle which is most pronounced distally, potentially due to a muscle strain or contusion. Denervation is also possible, though felt to be less likely. Tendons appear intact. There is mild generalized muscle atrophy without more focal regions of fatty replacement. JOINT FLUID AND BURSAE: Small left knee joint effusion. No bursitis. LYMPHOVASCULAR STRUCTURES: Unremarkable. No adenopathy. IMPRESSION: Severe osteoarthritis in the left hip with articular surface remodeling, bone loss and subchondral cystic change. Mild rectus femoris tendinosis. No tears. Moderate-sized left hip joint effusion with small intra-articular chondral loose bodies. Mild intramuscular edema in the vastus lateralis muscle is most pronounced in the distal thigh and could correspond to a strain or contusion. Denervation is also on the differential, though felt to be less likely in the absence of more pronounced atrophy. Osteoarthritis at the knee is partially imaged on this study and most pronounced in the lateral compartment. Assessment & Plan Assessment & Plan (1) Piriformis syndrome of left side: Comment: 04/27/23: left diagnostic piriformis muscle injection with 80% pain relief for 12 hours, 50% relief x1 week Code(s): G57.02 - Lesion of sciatic nerve, left lower limb Category: Medical (2) Chronic left hip pain: Code(s): M25.552 - Pain in left hip; G89.29 - Other chronic pain Category: Medical (3) Failed back syndrome of lumbar spine: Code(s): M96.1 - Postlaminectomy syndrome, not elsewhere classified Category: Medical (4) Greater trochanteric bursitis of left hip: Code(s): M70.62 - Trochanteric bursitis, left hip Category: Medical (5) Degenerative joint disease of left hip: Code(s): M16.12 - Unilateral primary osteoarthritis, left hip Category: Medical Qualifiers: Osteoarthritis type: unspecified Qualified Code(s): M16.12 - Unilateral primary osteoarthritis, left hip (6) Multiple sclerosis: Code(s): G35 - Multiple sclerosis Category: Medical Plan Patient presents today for request to repeat therapeutic left piriformis muscle injection which provided her 70-80% pain relief in 2022 with significant improvement in her functioning and sleep. She also has moderate localized tenderness in the projection of her left GTB area. Schedule repeat left therapeutic piriformis muscle injection and left therapeutic GTB injection with local and ultrasound guidance. Expectations, risks and benefits were reviewed. Patient is aware she will be contacted to schedule this procedure. All questions were answered and the patient is in agreement of plan. Follow-up after injections and sooner as needed. Coding Level of Care Code Est Pt Level 4 (19405) Complex EM visit Add On G2211 Diagnoses Piriformis syndrome of left side G57.02 Chronic left hip pain M25.552; G89.29 Failed back syndrome of lumbar spine M96.1 Greater trochanteric bursitis of left hip M70.62 Osteoarthritis of left hip, unspecified osteoarthritis type M16.12 Osteoarthritis type: unspecified Multiple sclerosis G35
[2024-08-18 11:25] VITALS: BP 144/86; PULSE 72
--- OUTSIDE RECORDS SUMMARY | 2024-08-18 12:01 | XMS_ITS | Encounter Summary ---
Author Organization [facility] Address [address] [place] [address] Care Team Providers Care Wrap Turner Name Role Phone Denia Lake MD Primary Care Prov ider Reason for Visit * Reason Onset Date Comments Fitting for DME 07/05/2024 Encounter Details Date Type Department Care Team ([facility] st Contact Info) Description 07/05/2024 Telephone Adult Medicine - [place] [address] [place] [phone] Denia Lake MD [address] [place] [address] Fitting for DME Social History Tobacco Use Types Packs/Day Years Used Date Smoking Tobacco: Every Day Cigarettes 0.2 47.1 Started: 07/19/1977 Smokeless Tobacco: Never Alcohol Use Standard Drinks/Week Comments Not Currently 0 (1 standard drink = 0.6 oz pur e alcohol) Sex and Gender Information Value Date Recorded Sex Assigned at Not on file Gender Identity Not on file Sexual Orientation Not on file Job Start Date Occupation Industry Not on file Not on file Not on file documented as of this encounter Progress Notes * Caroline Le MA - 08/04/2024 9:56 AM EST Faxed to [facility] T. [phone] F. [phone] Pt was informed to follow up. * Caroline Le MA - 08/04/2024 8:33 AM EST Received Form I requested as we did not received this earlier. Items listed in the form are as follow: A4554 Disposable underpads A9999 Patch Pain 3.75inxsin large warmin A4927 Adult size pull on LG A4537 Reusable underpad bed size T4535/Disposable liner/shield/pad A4345 Wipes incon uncented softpak Fl A9999 Commode Chair Liners w pad guard In your in basket. Thank you in advance * Caroline Le MA - 08/02/2024 10:09 AM EST Faxed a cover sheet requesting for the form from [facility] to be faxed to [facility]. We did not received this as of yet. * May Hurtado - 07/28/2024 3:44 PM EST [facility] called stating they faxed the order form again stating they did received Rx from us but they can't use it. They need their form to be filled out with their [facility] on in * Caroline Le MA - 07/06/2024 1:23 PM EST Faxed to [facility] T. [phone] F. [phone] * Caroline Le MA - 07/06/2024 10:32 AM EST I spoke to the pt and informed her we faxed over 240 pads on 06/2024. I told her I was going to fax these to [facility]. Personal Cleansing wipes In your in basket. Thank you in advance * Denia Lake MD - 07/05/2024 4:47 PM EST She will not qualify for different pads if she already got 240 pads * Caroline Le MA - 07/05/2024 4:23 PM EST We already faxed 240 Bladder pads in May 2024. She is now asking for the following in which the insurance may not pay. Orders requested: Large bladder pads Long bladder pads Small bladder pads Wipes: We can do the wipes as we have not order any. I'm trying to prevent the extra unnecessary supplies that will not be approved after we take the time to order. Should I tell her to call her insurance? * Abbi Ponce - 07/05/2024 2:09 PM EST DME REQUEST Name of Product: DME request Specific information about product disposable pads - large- pads overnight long one, smaller pad for the day and wipes # Needed 100 day supply Reason patient is asking for this supply? Unknown to bsr Have you received this supply before? If yes , when?: Yes. Have you discussed the need for this supply with a provider at a recent visit? If yes, with who andwhen? Yes. When completed: Fax to other office/MD/pharmacy at fax # [facility] tel #[phone] Have you told the patient it will take 7-10 days for completion of this request? Yes documented in this encounter Plan of Treatment Upcoming Encounters Date Type Department Care Team (Late st Contact Info) Description 08/22/2024 1:30 PM EST Office Visit Adult Medicine - [address] [place] [phone] Denia Lake MD [address] [place] [address] 09/01/2024 9:00 AM EST Telemedicine [facility] [place] - [place] [address] [place] [phone] Latoya Larry PA [address] [facility] [place] [address] 10/10/2024 9:00 AM EDT Office Visit Adult Medicine - [place] [address] [place] [phone] Denia Lake MD [address] [place] [address] documented as of this encounter Visit Diagnoses Diagnosis Neurogenic bladder- Primary Neurogenic bladder, NOS Urinary urgency Urgency of urination Multiple sclerosis (CMS/HCC) Multiple sclerosis documented in this encounter Orders General Supply Count Last Ordered Date First Or dered Date GENERAL SUPPLY 1 07/06/2024 documented in this encounter Care Teams Wrap Turner Relationship Specialty Start Date End Date Denia Lake MD [address] [place] [address] PCP - General Internal Medicine 05/31/24 documented as of this encounter
--- OUTSIDE RECORDS SUMMARY | 2024-08-18 12:01 | XMS_ITS | Continuity of Care Document ---
Author Organization [facility] Address [address] [place] [address]- Care Team Providers Care Investor Relations Coordinator Name Role Phone [place]-Elana Penny MD Primary Care Physicia n Encounter [facility] Date(s): 07/03/24 - 08/02/24 [facility] [address] [place] [id number] Attending Physician: Kaleb Gomez Admitting Physician: AdmtrKaleb Referring Physician: Admtr [id number] Encounter Type: Triage Allergies, Adverse Reactions, Alerts Substance Criticality Severity Reaction Reaction Severity Status Macrobid Unable to assess criticality Persistent Moderate Facial swelling Active Bactrim Hives Active Contrast Dye Active Immunizations Given and Recorded Vaccine Date Status Refusal Reason influenza virus vaccine, inactivated 03/30/24 Clyde rded influenza virus vaccine, inactivated 05/03/23 Clyde rded influenza virus vaccine, inactivated 06/25/22 Clyde rded influenza virus vaccine, inactivated 04/04/21 Clyde rded influenza virus vaccine, inactivated 04/11/20 Clyde rded influenza virus vaccine, inactivated 05/09/19 Clyde rded influenza virus vaccine, inactivated 04/14/18 Clyde rded influenza virus vaccine, inactivated 04/06/16 Clyde rded influenza virus vaccine, inactivated 05/15/15 Clyde rded influenza virus vaccine, inactivated 03/23/14 Clyde rded influenza virus vaccine, inactivated 07/25/12 Clyde rded influenza virus vaccine, inactivated 05/31/07 Clyde rded influenza virus vaccine, inactivated 04/21/05 Clyde rded zoster vaccine, inactivated 01/03/22 Recorded SARS-CoV-2 (COVID-19) mRNA BNT-162b2 vac 07/03/21 Recorded SARS-CoV-2 (COVID-19) mRNA BNT-162b2 vac 11/01/20 Given SARS-CoV-2 (COVID-19) mRNA BNT-162b2 vac 10/11/20 Given tetanus-diphtheria toxoids (Td) 03/02/19 Recorded tetanus/diphtheria/pertussis, acel(Tdap) 02/08/09 Recorded Medications Acetaminophen = 325 mg, By Mouth, Every 6 hours, 0 Refills, Maintenance, 05/09/24 10:01:00 AM EDT, Partial fill upon patient request if the prescription is for a schedule II opioid drug. Start Date: 05/09/24 Status: Ordered Repeat number: 1 Albuterol (Eqv-ProAir HFA) 90 mcg/inh inhalation aerosol INHALE 2 PUFFS INTO THE LUNGS EVERY 4 HOURS NEEDED FOR COUGH OR WHEEZING. Start Date: 04/24/20 Status: Ordered Repeat number: 1 carvedilol 3.125 mg oral tablet 3.125 mg, 1, tablet, By Mouth, 2 times a day, # 60 tablet, Refills 0, Maintenance, 10/23/23 1:47:00 PM EDT, Partial fill upon patient request if the prescription is for a schedule II opioid drug. Start Date: 10/23/23 Status: Ordered Quantity: 60.0 Unit: tablet Repeat number: 1 iron polysaccharide (as elemental iron) 180 mg oral capsule 1 capsule = 180 mg, By Mouth, Daily, 0 Refills, Maintenance, 05/09/24 10:03:00 AM EDT, Capsule, Partial fill upon patient request if the prescription is for a schedule II opioid drug. Start Date: 05/09/24 Status: Ordered Repeat number: 1 levothyroxine 0.025 mg oral tablet 1 tablet = 25 mcg, By Mouth, Daily, # 30 tablet, 0 Refills, Maintenance, 03/30/19 2:33:01 PM EDT, Tablet Start Date: 03/30/19 Status: Ordered Quantity: 30.0 Unit: tablet Repeat number: 1 omeprazole 20 mg oral delayed release tablet 1 tablet = 20 mg, By Mouth, Daily, # 30 tablet, 0 Refills, Maintenance, 10/18/21 4:12:00 AM EDT, CR Tablet, Partial fill upon patient request if the prescription is for a schedule II opioid drug. Start Date: 10/18/21 Status: Ordered Quantity: 30.0 Unit: tablet Repeat number: 1 Pepcid 20 mg oral tablet 1 tablet = 20 mg, By Mouth, 2 times a day, # 180 tablet, 0 Refills, Maintenance, 05/09/24 9:59:00 AM EDT, Tablet, Partial fill upon patient request if the prescription is for a schedule II opioid drug. Start Date: 05/09/24 Status: Ordered Quantity: 180.0 Unit: tablet Repeat number: 1 tiZANidine 2 mg oral tablet 2 mg, 1, tablet, By Mouth, 3 times a day, # 90 tablet, Refills 0, Maintenance, 05/09/24 10:06:00 AMEDT, Partial fill upon patient request if the prescription is for a schedule II opioid drug. Start Date: 05/09/24 Status: Ordered Quantity: 90.0 Unit: tablet Repeat number: 1 tolterodine 2 mg oral capsule, extended release 1 capsule = 2 mg, By Mouth, Daily, # 30 capsule, 0 Refills, Maintenance, 10/23/23 1:48:00 PM EDT, CR Capsule, Partial fill upon patient request if the prescription is for a schedule II opioid drug. Start Date: 10/23/23 Status: Ordered Quantity: 30.0 Unit: capsule Repeat number: 1 Vitamin B12 500 mcg/mL injectable solution = 1,000 mcg, Every 28 days, 0 Refills, Maintenance, 05/09/24 9:58:00 AM EDT, Partial fill upon patient request if the prescription is for a schedule II opioid drug. Start Date: 05/09/24 Status: Ordered Repeat number: 1 Vitamin D2 2000 intl units oral capsule 1 capsule = 50 mcg, By Mouth, Daily, with food, # 60 capsule, 0 Refills, Maintenance, 05/09/24 10:00:00 AM EDT, Capsule, Partial fill upon patient request if the prescription is for a schedule II opioid drug. Start Date: 05/09/24 Status: Ordered Quantity: 60.0 Unit: capsule Repeat number: 1 Problem List Condition Confirmation Course Effective Dates Status H ealth Status Informant ELEONORA (acute kidney injury) Confirmed Active Medical marijuana use Confirmed Active Depression Confirmed Active Foot pain Confirmed Active GERD (gastroesophageal reflux disease) Confirmed Active History of surgery 1 Confirmed Active Use of opiates for therapeutic purposes Confirmed Active Hypertension Confirmed Active Hypothyroidism Confirmed Active Low back pain Confirmed Active Multiple sclerosis Confirmed Active Nicotine use disorder Confirmed Active Complicated UTI (urinary tract infection) Confirmed Active 1L4-S1 lumbar fusion, Dr. Crane Social History Social History Type Response Smoking Status Use: 4 or less cigar ettes(less than 1/4 pack)/day in last 30 days;10 or more cigarettes (1/2 pack or more)/day in last 30 days; Type: Cigarettes; Other: 1 cigarette a day; entered on: 05/09/24 Sex Sex Representation Female (finding) Patient Care team information Care Team Personnel Name: Elana Cope MD Position: [facility] Physician - Primary Care Member Role: PCP Address: [address] [place] [address] [address] My Virtual [place] [address]- Telecom: Name: Carmela Rincon RN Position: [facility] RN Member Role: Primary Care Nurse Name: Alvin Nails RN Position: [facility] RN Member Role: Primary Care Nurse Name: Pipo Gonzalez RN Position: [facility] RN Supv Member Role: Primary Care Nurse Name: Jennifer Rai Position: [facility] Outreach Member Role: [employer] Consulting Physician Name: Herberth Rodriguez RN Position: [facility] RN Member Role: Primary Care Nurse Name: April Guardado RN Position: [facility] RN Member Role: Primary Care Nurse Name: Aayush Haq RN Position: [facility] RN Member Role: Primary Care Nurse Name: Ira Jon RN Position: [facility] RN Member Role: Primary Care Nurse Care Team Related Persons Name: JW PALMA Insurance Providers Guarantor name[facility] Information #: 1 Payer: [facility] [employer] Member Number: NA Policy Number: NA Group Number: NA
--- OUTSIDE RECORDS SUMMARY | 2024-08-18 12:01 | XMS_ITS | Continuity of Care Document ---
Author Organization [facility] Address [address] [place] [address]- Care Team Providers Care Gre Instructor Name Role Phone Cooter-Zohaib JACOBS, Elana Primary Care Physicia n Encounter [facility] [place] ACCT R [id number] Date(s): 06/07/24 - 08/02/24 [facility] [address] [place] [id number] Attending Physician: Darion Hummel MD Admitting Physician: Darion Hummel MD Referring Physician: Radha Posadas MD Encounter Type: Pre-OutPatient One Time Allergies, Adverse Reactions, Alerts Substance Criticality Severity [...] Team Personnel Name: Elana Cope MD Position: [facility] Physician - Primary Care Member Role: PCP Address: [address] [place] [address] [address] [place] [address]- Telecom: Name: Carmela Rincon RN Position: [facility] RN Member Role: Primary Care Nurse Name: Alvin Nails RN Position: [facility] RN Member Role: Primary Care Nurse Name: Pipo Gonzalez RN Position: [facility] RN Supv Member Role: Primary Care Nurse Name: Jennifer Rai Position: [facility] Outreach Member Role: Lifetime Consulting Physician Name: Herberth Rodriguez RN Position: [facility] RN Member Role: Primary Care Nurse Name: April Guardado RN Position: [facility] RN Member Role: Primary Care Nurse Name: Aayush Haq RN Position: [facility] RN Member Role: Primary Care Nurse Name: Ira Jon RN Position: [facility] RN Member Role: Primary Care Nurse Care Team Related Persons Name: JW PALMA Insurance Providers Guarantor name: DOMINGO VELIZ [employer] Plan Information #: 1 Payer: [facility] [employer] Member Number: [id number] Policy Number: NA Group Number: [facility] [employer] Plan Information #: 2 Payer: [facility] [employer] Member Number: [id number] Policy Number: NA Group Number: NA
--- OUTSIDE RECORDS SUMMARY | 2024-08-18 12:01 | XMS_ITS | Encounter Summary ---
Author Organization [facility] Address [address] [place] [address] Care Team Providers Care Print Inspector Name Role Phone Denia Lake MD Primary Care Prov ider Encounter Details Date Type Department Care Team (Late st Contact Info) Description 05/23/2024 Nurse Triage Adult Medicine - [place] [address] [place] [phone] Denia Lake MD [address] [place] [address] Social History Tobacco Use Types Packs/Day Years [...] as of this encounter Progress Notes * Denia Lake MD - 05/24/2024 8:35 AM EST Order signed documented in this encounter Plan of Treatment Upcoming Encounters Date Type Department Care Team (Late st Contact Info) Description 08/22/2024 1:30 PM EST Office Visit Adult Medicine - [place] [address] [place] [phone] Denia Lake MD [address] [place] [address] 09/01/2024 9:00 AM EST Telemedicine [facility] [address] [place] [phone] Latoya Larry PA [address] [facility] [place] [address] 10/10/2024 9:00 AM EDT Office Visit Adult Medicine - [address] [phone] Denia Lake MD [address] [place] [address] documented as of this encounter Visit Diagnoses Diagnosis Urinary tract infection without hematuria, site unspecified- Primary documented in this encounter Care Teams Print Inspector Relationship Specialty Start Date End Date Denia Lake MD [address] [place] [address] PCP - General Internal Medicine 05/31/24 documented as of this encounter
--- OUTSIDE RECORDS SUMMARY | 2024-08-18 12:01 | XMS_ITS | Encounter Summary ---
Author Organization [facility] Address [address] [place] [address] Care Team Providers Care Student Development Coordinator Name Role Phone Denia Lake MD Primary Care Prov ider Reason for Visit * Reason Onset Date Comments Faxed Order [id number] 08/04/2024 Encounter Details Date Type Department Care Team (Late st Contact Info) Description 08/04/2024 Telephone Adult Medicine - [place] [address] [place] [phone] Denia Lake MD [address] [place] [address] Faxed Order [id number] Social History Tobacco Use Types Packs/Day Years [...] Progress Notes * Caroline Le MA - 08/07/2024 1:56 PM EST Signed, faxed and filed. * Caroline Le MA - 08/04/2024 10:[address] Holliday To Dr. Holliday to sign I will fax when approved. * Ashley Castleon - 08/04/2024 7:20 AM EST PLEASE CLOSE MESSAGE WHEN ORDER HAS BEEN FAXED Faxed order [id number] received from [facility], requesting signature from provider. Please sign andfax back to [phone]. Order in orange folder documented in this encounter Plan of Treatment Upcoming Encounters Date Type Department Care Team (Late st Contact Info) Description 08/22/2024 1:30 PM EST Office Visit Adult Medicine - [place] [address] [place] [phone] Denia Lake MD [address] [place] [address] 09/01/2024 9:00 AM EST Telemedicine [facility] [address] [place] [phone] Latoya Larry PA [address] [facility] [place] [address] 10/10/2024 9:00 AM EDT Office Visit Adult Medicine - [place] [address] [place] [phone] Denia Lake MD [address] [place] [address] documented as of this encounter Visit Diagnoses Not on filedocumented in this encounter Care Teams Student Development Coordinator Relationship Specialty Start Date End Date Denia Lake MD [address] [place] [address] PCP - General Internal Medicine 05/31/24 documented as of this encounter
--- OUTSIDE RECORDS SUMMARY | 2024-08-18 12:01 | XMS_ITS | Encounter Summary ---
Author Organization [facility] Address [address] [place] [address] Care Team Providers Care Bellows Assembler Name Role Phone Denia Lake MD Primary Care Prov ider Reason for Visit * Reason Onset Date Comments Fitting for DME 08/18/2024 [facility]for Seat Lift recliner Encounter Details Date Type Department Care Team (Late st Contact Info) Description 08/18/2024 Telephone Adult Medicine [facility] [address] [place] [phone] Caroline Le MA Fitting for DME ([facility]/for Seat Lift recliner) Social History Tobacco Use Types Packs/Day Years [...] Progress Notes * Caroline Le MA - 08/18/2024 10:29 AM EST Received an order from [facility] for seat lift recliner. In your in basket. Thank you in advance documented in this encounter Plan of Treatment Upcoming Encounters Date Type Department Care Team (Late st Contact Info) Description 08/22/2024 1:30 PM EST Office Visit Adult Medicine - [place] [address] [place] [address] Denia Lake MD [address] [place] [address] 09/01/2024 9:00 AM EST Telemedicine [facility] [address] [place] [phone] Latoya Larry PA [address] [facility] [place] [address] 10/10/2024 9:00 AM EDT Office Visit Adult Medicine - [place] [address] [place] [phone] Denai Lake MD [address] [place] [address] documented as of this encounter Visit Diagnoses Diagnosis Vitamin B12 deficiency- Primary Other B-complex deficiencies documented in this encounter Orders Medications Ordered That Zan ht Not Have Been Administered Count Last Ordered Date First Ordered Date cyanocobalamin (VITAMIN B-12 ) injection 1,000 mcg 1 08/18/2024 documented in this encounter Care Teams Bellows Assembler Relationship Specialty Start Date End Date Denia Lake MD [address] [place] [address] PCP - General Internal Medicine 05/31/24 documented as of this encounter
--- OUTSIDE RECORDS SUMMARY | 2024-08-18 12:01 | XMS_ITS | Continuity of Care Document ---
Author Organization [employer] [employer] Address [address] [place] [address] Care Team Providers Care Lip Reading Teacher Name Role Phone HIM CCA OTHER PERNELL TARIQ Primary Care Provider Assessment Encounter Date Assessment Date Assessment LastModified by Organization Details LastModified Time 07/26/2024 07/26/2024 I provided real -time medical direction via phone for this encounter and was available for additional phone-based assistance as needed. I have reviewed and agree with the Assessment and Plan as documented by the Care Management Coordinator. Patient given the opportunity to ask questions. Our service contacted for an assessment of: Urinary symptoms As per above, patient with approximately 24 hours of dysuria, frequency. No history of frequent urinary tract infections. Denies fever, chills, abdominal pain, back pain, flank pain. Per media relations intern on the scene, Vital signs are stable and the patient is afebrile. Patient is nontoxic in appearance. Unfortunately unable to give a urine sample. Impression: Urinary symptoms and UTI based on previous results and symptoms. Plan: Levaquin 500 mg for 5 days. Red flags discussed. Allergies: reviewed We discussed the diagnostic uncertainty of home visits and the risk associated with this. In this case, the patient and I felt this to be an acceptable and reasonable amount of risk given the benefit of avoiding an ED visit. We discussed the need to seek care urgently/emergen tly in the setting of any new or worsening serious symptoms, particularly fever chills [email or web address] Not available 07/26/2024 21:35:09 Plan of Treatment Reminders Order Date Submit Date Provider Last Modified By Organization Details Last Modified Time Details Appointments None recorded. Lab None recorded. Referral None recorded. Procedures None recorded. Surgeries None recorded. Imaging None recorded. Medication Orders levofloxaci n 500 mg tablet 2024 025 [facility][id number], [address] [place], [address], 5 21:35:43 levofloxaci n 500 mg tablet 2024 025 [email or web address] [id number], [address] [place], [address], 21:35:41 Patient TargetsNo targets recorded. Patient InstructionsNo instructions recorded. Reason for Referral None Reported. Medical Equipment None Reported. Allergies Allergen ID Allergen Name Allergen Category Reaction Reaction Severity Criticality Documentation Date Start Date Code Code System Note Provider Name and Address Organization Details Recorded Time 6545 Substance with sulfonami de structure and antibacte rial mechanism of action (substanc e) medicatio n Not available Not available Not available 05/01/2024 69247 8003 SNOMED [facility] [employer] 18:52:04 6546 Macrobid medicatio n Not available Not available Not available 05/01/2024 28950 1 RxNorm [facility] [employer] 18:52:16 Medications Name Sig Start Date Stop Date Status Note LastModified by Organization Details LastModified Time fluconazole 100 mg tablet TAKE 2 TABLETS X 1 DAY THEN 1 TABLET EVERY DAY FOR 6 DAYS active Not Available Not Available N ot Available acetaminophe n 325 mg tablet TAKE 1 TABLET BY MOUTH EVERY 6 HOURS NEEDED FOR PAIN active Not Available Not Available No t Available nicotine 14 mg/24 hr daily transdermal patch PLACE 1 PATCH ONTO THE SKIN EVERY 24 HOURS. active Not Available Not Available No t Available tizanidine 2 mg tablet TAKE 1 TABLET BY MOUTH 3 TIMES A DAY. active Not Available Not Available No t Available Vitamin C 500 mg tablet TAKE 1 TABLET BY MOUTH EVERY DAY active Not Available Not Available No t Available fluconazole 150 mg tablet TAKE 1 TABLET NOW. TAKE ANOTHER TABLET IN 3 DAYS IF STILL HAVING SYMPTOMS. active Not Available Not Available No t Available cephalexin 250 mg capsule TAKE 1 CAPSULE BY MOUTH EVERY DAY active Not Available Not Available No t Available fluconazole 200 mg tablet TAKE 1 TABLET BY MOUTH DAILY FOR 12 DAYS active Not Available Not Available Not Available valsartan 80 mg tablet TAKE 1 TABLET BY MOUTH EVERY DAY active Not Available Not Available No t Available metronidazol e 500 mg tablet TAKE 1 TABLET BY MOUTH TWICE A DAY DO NOT CONSUME ALCOHOL WHILE TAKING THIS PRODUCT active Not Available Not Available No t Available ciprofloxaci n 250 mg tablet TAKE 1 TABLET BY MOUTH EVERY 12 HOURS FOR 3 DAYS active Not Available Not Available N ot Available ciprofloxaci n 500 mg tablet TAKE 1 TABLET BY MOUTH TWICE A DAY FOR 10 DAYS active Not Available Not Available No t Available doxycycline monohydrate 100 mg tablet TAKE 1 TABLET BY MOUTH TWICE A DAY FOR 10 DAYS active Not Available Not Available No t Available spironolacto ne 25 mg tablet TAKE 1 TABLET BY MOUTH EVERY DAY active Not Available Not Available No t Available carvedilol 3.125 mg tablet TAKE 1 TABLET BY MOUTH TWICE A DAY WITH MEALS active Not Available Not Available No t Available levothyroxin e 25 mcg tablet TAKE 1 TABLET BY MOUTH EVERY DAY active Not Available Not Available No t Available oxycodone-ac etaminophen 5 mg-325 mg tablet TAKE 1 TABLET BY MOUTH EVERY 8 HOURS NEEDED FOR PAIN active Not Available Not Available No t Available methenamine hippurate 1 gram tablet TAKE 1 TABLET BY MOUTH 2 TIMES DAILY (WITH MEALS) active Not Available Not Available No t Available famotidine 20 mg tablet TAKE 1 TABLET BY MOUTH TWICE A DAY active Not Available Not Available No t Available tolterodine 2 mg tablet TAKE 1 TABLET BY MOUTH EVERY DAY active Not Available Not Available No t Available lorazepam 0.5 mg tablet TAKE 1 TABLET BY MOUTH EVERY 6 HOURS NEEDED. active Not Available Not Available No t Available cephalexin 500 mg capsule TAKE 1 TABLET BY MOUTH TWICE DAILY active Not Available Not Available No t Available cyanocobalam in (vit B-12) 1,000 mcg/mL injection solution INJECT 0.1 ML INTO THE MUSCLE EVERY 30 DAYS. active Not Available Not Available No t Available ferrous sulfate 325 mg (65 mg iron) tablet TAKE 1 TABLET BY MOUTH EVERY DAY active Not Available Not Available No t Available docusate sodium 100 mg capsule TAKE 1 CAPSULE BY MOUTH 2 TIMES A DAY NEEDED FOR CONSTIPATIO N active Not Available Not Available No t Available omeprazole 20 mg capsule,ricardo yed release TAKE 1 CAPSULE BY MOUTH EVERY DAY active Not Available Not Available No t Available epinephrine 0.3 mg/0.3 mL injection, auto-injecto r active Not Available Not Available Not Available ibuprofen 600 mg tablet TAKE 1 TABLET BY MOUTH EVERY 8 HOURS NEEDED FOR PAIN active Not Available Not Available No t Available levofloxacin 500 mg tablet TAKE 1 TABLET BY MOUTH EVERY 24 HOURS FOR 4 DAYS. active Not Available Not Available Not Available estradiol 0.01% (0.1 mg/gram) vaginal cream PLEASE SEE ATTACHED FOR DETAILED DIRECTIONS active Not Available Not Available N ot Available levofloxacin 750 mg tablet TAKE 1 TABLET BY MOUTH EVERY DAY active Not Available Not Available No t Available methylpredni solone 4 mg tablets in a dose pack TAKE 6 TABLETS ON DAY 1 DIRECTED ON PACKAGE AND DECREASE BY 1 TAB EACH DAY FOR A TOTAL OF 6 DAYS active Not Available Not Available No t Available cefdinir 300 mg capsule TAKE 1 CAPSULE BY MOUTH EVERY 12 HOURS FOR 12 DAYS active Not Available Not Available Not Available amoxicillin 875 mg-potassium clavulanate 125 mg tablet TAKE 1 TABLET BY MOUTH TWICE A DAY FOR 7 DAYS active Not Available Not Available No t Available amoxicillin 500 mg-potassium clavulanate 125 mg tablet TAKE 1 TABLET BY MOUTH THREE TIMES A DAY FOR 10 DAYS active Not Available Not Available Not Available oxycodone 5 mg tablet TAKE 1 TABLET BY MOUTH EVERY 6 HOURS FOR 2 DAYS NEEDED FOR SEVERE PAIN active Not Available Not Available Not Available valsartan 40 mg tablet TAKE 1 TABLET BY MOUTH EVERY DAY active Not Available Not Available No t Available cyclobenzapr ine 5 mg tablet TAKE 1 TABLET BY MOUTH EVERY DAY AT BEDTIME NEEDED FOR MUSCLE SPASM FOR UP TO 10 DAYS active Not Available Not Available No t Available Vitamin D3 50 mcg (2,000 unit) tablet TAKE 1 TABLET BY MOUTH EVERY DAY active Not Available Not Available No t Available Gavilax 17 gram/dose oral powder 1 SCOOP MIXED WITH 8 OUNCES OF FLUID NEEDED FOR CONSTIPATIO N ORALLY ONCE A DAY 30 DAYS active Not Available Not Available No t Available glatiramer 40 mg/mL subcutaneous syringe active Not Available Not Available Not Available Cuvitru 10 gram/50 mL (20 %) subcutaneous solution active Not Available Not Available Not Available Paxlovid 300 mg (150 mg x 2)-100 mg tablets in a dose pack PLEASE SEE ATTACHED FOR DETAILED DIRECTIONS active Not Available Not Available N ot Available Vitals Date Recorded Heart rate Body temperature Respiratory rate Oxygen saturation Oxygen saturation in Arterial blood by Pulse oximetry Systolic blood pressure Diastolic blood pressure Provider Name and Address Organization Details Last Updated DateTime 5 60 /min 98 [degF] 16 /min 98 % 98 % 142 mm[Hg] 87 mm[Hg] Not Available [facility] production 17:49:59 Social History None recorded. Functional Status None recorded. Mental Status None recorded. Family History Nothing Reported. Medical History No medical history recorded. Gynecological HistoryNo gynecological history recorded. Obstetrics History GPAL:G 0 P 0 0 0 0 Past Encounters Encounter ID Performer Location Encounter Start Date Encounter Closed Date Diagnosis/Indication Diagnosis SNOMED-CT Code Diagnosis ICD10 Code Diagnosis Note [id number] Heather Fall MD [facility] [address] [place] [phone] 07/26/2024 17:49:57 07/26/2024 22:12:25 Urinary symptoms 715929651 R39.9 Health Concerns Section Related Observation LastModified by Organization Detai ls LastModified Time None Recorded Concern Status LastModified by Organization Details LastModified Time None Recorded Payers Encounter Date Sequence Insurance Name Policy Number Policy Jones Covered Member ID Jones Member ID Guarantor Name 07/26/[address] [facility] - DOS ON OR AFTER 2022 - DUAL ELIGIBLE - [employer] OPTIONS AND ONE CARE (MEDICARE REPLACEMENT/ADV ANTAGE - HMO) Maria Adams [id number] Maria Adams Notes Date Note Type Note Provider Name and Address Organization Details Recorded Time 07/26/2024 text/html [facility] Nurse Triage Notes (Lexx Sorensen - RN): Denies: Unable to void greater than 5 hours Fall or trauma that results in urinary incontinence in the setting of pain Fall or injury that results in incontinence in the absence of pain Lower back pain either unilateral or bilateral, unable to void, painful urination -hematuria Chief Complaints: Urinary symptoms PMH: Hypertension, Incontinence, Multiple Sclerosis PMH Reviewed at 07/26/2024 - :31 Allergies Reviewed at 07/26/2024 - :31 Comments: Roller Picker verified the patient's name//address and phone number. Pt calling reporting three days of urinary symptoms. Pt reports she is on preventative antibiotics but states she misplaced the prescription for three weeks. Pt reports increased urination, states urinary incontinence at baseline. Pt states her incontinence is usually contained to my pad or depends, but now it is going up my back . Education provided on the response time and the patient was advised to monitor reported s/s and seek emergency treatment if needed -Everton Sorensen RN .................. .................. .................. .................. .................. .................. .................. ............... Care Management Coordinator Note From Richard Emanuel: Was dispatched for a 64 Y/O female complaining of a possible UTI. UOA PT was found sitting in her chair. PT is A/Ox4. PT reported she is having back pain, and discomfort when she urinates. PT also reported she just had a UTI a month ago with the same symptoms. PT vitals were obtained and an assessment was performed. Nothing remarkable was found upon completion of assessment. A urine was attempted but with no success. [facility] [place], [facility] [place] willing to treat without a possible urine, [facility] ordered 500 MG of Levofloxacin and perscribed it to the PT to be picked up at her local pharmacy. crew cleared .................. .................. .................. .................. .................. .................. .................. ............... [facility] Consulted: Heather Fall .................. .................. .................. .................. .................. .................. .................. ............... Disposition: Fulfilled Heather Fall MD [address] [place] [address],[address] [facility], [place], [phone], [facility] 07/26/2024 21:36:02 OBGyn Episode No OBEpisode recorded.
--- OUTSIDE RECORDS SUMMARY | 2024-08-18 12:01 | XMS_ITS | Data Portability ---
Author Organization [facility], [facility] [place] Address [address] [place] [address] Care Team Providers Care Residential Sales Consultant Name Role Phone HIM CCA OTHER PERNELL TARIQ Primary Care Provider Assessment Encounter Date Assessment Date Assessment LastModified by Organization Details LastModified Time 04/26/2024 04/26/2024 As noted, we were called to see this patient regarding concerns of UTI. Evaluation in the field was performed by my test consultant colleague, as noted above, I provided real-time direction and supervision for this visit. The evaluation revealed same. Impression: 64yo/f referred for evaluation for UTI symptoms. Patient is 64yo/f, evaluated by medic in home, states for past several days has had dysuria, urinary symptoms, along with some flank discomfort and low grade fevers. During medic evaluation she is awake, alert, in no distress. Does have low grade temp of 100.7F. No abdominal pain, chest pain, dyspnea. No associated neurologic symptoms. Eating and drinking at baseline, no other associated signs or symptoms of illness at this time. Medic exam is unremarkable. Urine appears positive on urine dip. Plan: Patient with dysuria but also some signs of ascending urinary tract infection including low grade fever and flank discomfort, will treat as complicated UTI/early pyelo with 7 days of 750mg levaquin, given first dose in home and rx sent to pharmacy. Advised on other signs and symptoms to reach out for immediately, including any worsening or change in symptoms. I have a low suspicion based on history and exam for an occult emergency medical condition such as ACS, PE, aortic dissection, AAA, sepsis. Primary care, consider followup UTI treatment. Disposition: We discussed the diagnostic uncertainty of home visits and the risk associated with this. In this case, the patient and I felt this to be an acceptable and reasonable amount of risk given the benefit of avoiding an ED visit. We discussed the need to seek care urgently/emergen tly in the setting of any new or worsening serious symptoms, particularly any acute worsening or change in symptoms. [email or web address] Not available 04/26/2024 14:45:12 04/27/2024 04/27/2024 64 yo F seen yesterday with UTI sxs and started on levaquin 750 daily (now s/p 2 doses), calls w ongoing urinary symptoms and sxs of vaginal yeast infection. VS wnl. Prelim UCx with GNRs. Discussed that patient should continue to take levaquin to completion. I have also sent diflucan rx for yeast infection. Not available 04/27/2024 21:15:26 07/26/2024 07/26/2024 I provided real -time medical direction via phone for this encounter and was available for additional phone-based assistance as needed. I have reviewed and agree with the Assessment and Plan as documented by the Stone Finisher. Patient given the opportunity to ask questions. Our service contacted for an assessment of: Urinary symptoms As per above, patient with approximately 24 hours of dysuria, frequency. No history of frequent urinary tract infections. Denies fever, chills, abdominal pain, back pain, flank pain. Per test consultant on the scene, Vital signs are stable [...] Modified Time Details Appointments None recorded. Lab culture, urine 2023 024 [place] [facility], [address] [facility], [place], [address], 20:06:38 urinalysis, dipstick 2023 024 [facility], [address] [place] [address], [phone], 14:40:00 Referral None recorded. Procedures None recorded. Surgeries None recorded. Imaging None recorded. Medication Orders levofloxaci n 750 mg tablet 2023 024 [place] 84 [id number], [address] [place] [address], [address], 14:41:18 levofloxaci n 750 mg tablet 2023 024 [place] 84 [facility], [address] [place] [address], [address], 14:41:37 Diflucan 150 mg tablet 2023 024 [facility]0859, [address] [place] [address], [address], 4 19:43:38 levofloxaci n 500 mg tablet 2024 025 [facility], [address] [place] [address], [address], 5 21:35:43 levofloxaci n 500 mg tablet [address]/[facility]acy #0859, [address] [place] [address], [address], 5 21:35:41 Patient TargetsNo targets recorded. Patient InstructionsNo instructions recorded. Reason for Referral None Reported. Results Created Date Observation Date Name Description Value Unit Range Abnormal Flag Note LastModifiedBy Organization Detail LastModifiedTime 04/26/20 24 04/28/2024 URINE CULTU RE,CO MPREH ENSIV E urine culture,comp rehensive Final report abnormal Not Available [facility] ([facility]) [address] [facility], [place], [address], 04/28/2024 10:06:27 04/26/20 24 04/28/2024 URINE CULTU RE,CO MPREH ENSIV E result 1 Escher ichia coli abnormal Great er than 100,0 00 colon y formi ng units per mL Cefaz hayden <=4 ug/mL Cefaz hayden with an AGUILA <=16 predi cts susce ptibi lity to the oral agent s cefac tanvir, cefdi yecenia, cefpo doxim e, cefpr ozil, cefur oxime , cepha lexin , and lorac arbef when used for thera py of uncom plica cornelio urina ry tract infec tions due to E. coli, Klebs iella pneum oniae , and Prote us mirab ilis. Not Available [facility] ([facility]) [address] [place], [address], 04/28/2024 10:06:27 04/26/20 24 04/28/2024 URINE CULTU RE,CO MPREH ENSIV E antimicrobia l susceptibili ty Commen t S = Susce ptibl e; I = Inter media te; R = Resis tant P = Posit juli; N = Negat juli MICS are expre ssed in micro grams per mL Antib iotic RSLT# 1 RSLT# 2 RSLT# 3 RSLT# 4 Amoxi cilli n/Cla vulan ic Acid S Ampic illin R Cefep jacky S Ceftr iaxon e S Cefur oxime S Cipro floxa key S Ertap enem S Genta micin S Imipe nem S Levof loxac in S Merop enem S Nitro furan toin I Piper acill in/Ta zobac estrada S Tetra cycli ne S Tobra mycin S Trime thopr im/Gustafson lfa S Not Available [facility] ([facility]) [address] [facility], [place], [address], 04/28/2024 10:06:27 Result Notes None recorded. Medical Equipment None Reported. Allergies Allergen ID Allergen Name Allergen Category Reaction Reaction Severity Criticality Documentation Date Start Date Code Code System Note Provider Name and Address Organization Details Recorded Time 6545 Substance with sulfonami de structure and antibacte rial mechanism of action (substanc e) medicatio n Not available Not available Not available 05/01/2024 87666 8003 SNOMED Sylvie Turk [employer] [facility] 18:52:04 6546 Macrobid medicatio n Not available Not available Not available 05/01/2024 49314 1 RxNorm Sylvie Turk [employer] [facility] 18:52:16 Medications Name Sig Start Date Stop [...] Available N ot Available Vitals Date Recorded Oxygen saturation Oxygen saturation in Arterial blood by Pulse oximetry Heart rate Respiratory rate Body weight Body temperature Systolic blood pressure Diastolic blood pressure Provider Name and Address Organization Details Last Updated DateTime 4 98 % 98 % 58 /min 16 /min 81296.7 6 g 100.7 [degF] 126 mm[Hg] 76 mm[Hg] Not Available [facility] 4 14:36:11 Date Recorded Heart rate Body weight Respiratory rate Oxygen saturation Oxygen saturation in Arterial blood by Pulse oximetry Body temperature Systolic blood pressure Diastolic blood pressure Provider Name and Address Organization Details Last Updated DateTime 4 56 /min 42833.1 12 g 16 /min 98 % 98 % 97.8 [degF] 106 mm[Hg] 60 mm[Hg] Not Available [facility] 4 19:31:36 Date Recorded Heart rate Body temperature Respiratory rate Oxygen saturation Oxygen saturation in Arterial blood by Pulse oximetry Systolic blood pressure Diastolic blood pressure Provider Name and Address Organization Details Last Updated DateTime 60 /min 98 [degF] 16 /min 98 [...] SNOMED-CT Code Diagnosis ICD10 Code Diagnosis Note [id number] Rolando Valdivia MD [facility] [address] [place] [phone] 04/26/2024 14:35:59 04/27/2024 14:53:21 Acute urinary tract infection 257085176 N39.0 76863 IVAN CARBALLO MD [facility] [address] [place] [phone] 04/27/2024 19:31:34 04/27/2024 22:32:44 Candidiasis of vagina 98559193 B37.31 13515 Heather Fall MD [facility] [address] [place] [phone] 07/26/2024 17:49:57 07/26/2024 22:12:25 Urinary symptoms [id number] R39.9 Health Concerns Section Related Observation LastModified by Organization Detai ls LastModified Time None Recorded Concern Status LastModified by Organization Details LastModified Time None Recorded Advance Directives Directive None Recorded Payers Encounter Date Sequence Insurance Name Policy Number Policy Jones Covered Member ID Jones Member ID Guarantor Name 04/26/2024 1 [facility] [employer] - DOS ON OR AFTER 2022 - DUAL ELIGIBLE - SHELTER OPTIONS AND ONE CARE (MEDICARE REPLACEMENT/ADV ANTAGE - HMO) Maria Adams [id number] Maria Adams 04/27/2024 1 [facility] [employer] - DOS ON OR AFTER 2022 - DUAL ELIGIBLE - SHELTER OPTIONS AND ONE CARE (MEDICARE REPLACEMENT/ADV ANTAGE - HMO) Maria Adams [id number] Maria Adams 07/26/2024 1 [facility] - DOS ON OR AFTER 2022 - DUAL ELIGIBLE - SHELTER OPTIONS AND ONE CARE (MEDICARE REPLACEMENT/ADV ANTAGE - HMO) Maria Adams [id number] Maria Adams Notes Date Note Type Note Provider Name and Address Organization Details Recorded Time 04/26/2024 text/html CRC Nurse Triage Notes (Cecy Ortega): Reason For Request: Patient has a UTI. Req hat. Chief Complaints: UTI/Pyelonephritis PMH: Neurologic (E.G. ALS/MS), Hypertension, Other Allergies: No Known Comments: PMH: Bowel ObstructionDIL reports member with UTI symptoms. Dysuria since last night with malodorous urine. Reports low back pain which is baseline. [place] feverish yesterday. Temp 97.2. Stone Finisher Organization Information for [employer] CMP.LY KAREN Ridley Legal Name: [facility] [employer] Address: [address] [place] [address], Third Mate: Booker Adame MD CLIA No.: [id number] Stone Finisher POC Test Results from Gee Barragan Urine Dipstick (14:27:28) Urine leukocytes: 500+++ TANESHA Urine nitrites: + NIT Urine urobilinogen: NR Urine protein: 30(0.3) PRO Urine pH: 5 pH Urine blood: +++ BLO Urine specific gravity: 1.015 SG Urine ketones: NR Urine bilirubin: NR Urine glucose: NR .................... .................... .................... .................... .................... .................... .................... . Stone Finisher Note From Gee Barragan: Pt co painful urination, Odor, Cloudy urine, frequency, CVA tenderness and feeling warm since yesterday. Pt sts painful urination started this morning. Pt denies blood in urine, NVD, Abdominal pain, Confusion, Cp or SOB. Pt sts gets uti's frequently. Baseline vitals assessed, WNL, Slightly febrile, Urine dip Pos for TANESHA, NIT, and BLD. Urine cloudy and light yellow in color. Abdomen benign. CVA tenderness on palpation. Urine culture drawn up. [facility] [place] and Pt given first does of antibiotic 750mg Levo given PO. RX called in for remainder. Pt education on signs indicating the ER. Pt advised to follow up with PCP if symptoms persist after course of antibiotics. PT signed hard copy consent and uploaded. Urine culture sent to lab [facility]. .................... .................... .................... .................... .................... .................... .................... . Disposition: Fulfilled Rolando Valdivia MD [address] [place] [address],[address], [place], [phone], [facility] 04/26/2024 15:21:10 04/27/2024 text/html CRC Nurse Triage Notes (Antonella Donaldson): Chief Complaints: UTI/Pyelonephritis, Fever/Chills PMH: Neurologic (E.G. ALS/MS), Hypertension Allergies: Unknown Comments: Member's daughter called in - confirmed identity via name/. Member was seen yesterday for UTI symptoms and started on levo. Member continues to have fever and symptoms are getting worse. Increased burning with urination and daughter would like different antibiotics for the member. Requesting visit for assessment. Member's daughter is very concerned about worsening symptoms. Education provided on response time. Agrees to monitor signs and symptoms and seek emergency care if needed. Arline Donaldson RN .................... .................... .................... .................... .................... .................... .................... . Stone Finisher Note From Gee Barragan: Pt co continued painful urination. Pt seen yesterday 04/26/24 for UTI symptoms, Pt urine dip POs and culture sent out to lab [facility], Pt treated with 750mg levo and x for levo prescribed for 7 day course. Pt wanting to switch antibiotics to cipro due to no relief as of yet, pt also co having yeast. Pt denies fever, NVD, abdominal pain. Baseline vitals assessed, Afebrile.[facility] [place] and x for diflucan. Pt sts daughter will fish bait picker rx. Pt expressed gratitude for re visit. [facility] contacted and advised will continue with current antibiotic rx until completion. Pt agreeable. Pt education on signs indicating the ER. Pt advised to follow up with pcp if symptoms continue. .................... .................... .................... .................... .................... .................... .................... . Disposition: Fulfilled IVAN CARBALLO MD [address] [facility],[address], [place], [address], [facility] 04/27/2024 21:15:33 07/26/2024 text/html CRC Nurse Triage Notes (Lexx Sorensen - CURTIS): Denies: Unable to void greater than 5 hours Fall or trauma that results in urinary incontinence in the setting of pain Fall or injury that results in incontinence in the absence of pain Lower back pain either unilateral or bilateral, unable to void, painful urination -hematuria Chief Complaints: Urinary symptoms PMH: Hypertension, Incontinence, Multiple Sclerosis PMH Reviewed at 07/26/2024: Allergies Reviewed at 07/26/2024:31 Comments: Plow Holder verified the patient's name//address and phone number. [...] emergency treatment if needed -Everton Sorensen RN .................... .................... .................... .................... .................... .................... .................... . Stone Finisher Note From Richard Emanuel: Was dispatched for [...] urine was attempted but with no success. [facility] was contacted, [facility] is willing to treat without a possible urine, [facility] ordered 500 MG of Levofloxacin and perscribed it to the PT to be picked up at her local pharmacy. crew cleared .................... .................... .................... .................... .................... .................... .................... . [facility] Consulted: Heather Fall .................... .................... .................... .................... .................... .................... .................... . Disposition: Fulfilled Heather Fall MD [address] [facility],[address] [facility], [place], [phone], [facility] [place] 07/26/2024 21:36:02 OBGyn Episode No OBEpisode recorded.
--- OUTSIDE RECORDS SUMMARY | 2024-08-18 12:01 | XMS_ITS | Encounter Summary ---
Author Organization [facility] Address [address] [place] [address] Care Team Providers Care Chief Enterprise Architect Name Role Phone Denia Lake MD Primary Care Prov ider Reason for Visit * Reason Onset Date Comments Faxed Order [id number] 07/20/2024 Encounter Details Date Type Department Care Team (Late st Contact Info) Description 07/20/2024 Telephone Adult Medicine - [place] [address] [place] [phone] Denia Lake MD [address] [place] [address] Faxed Order [id number] Social History Tobacco Use Types Packs/Day Years [...] as of this encounter Progress Notes * Ashley Washington - 07/20/2024 10:11 AM EST PLEASE CLOSE MESSAGE WHEN ORDER HAS BEEN FAXED Faxed order [id number] received from [facility], requesting signature from provider. Please signand fax back to [phone]. Order in orange folder documented in this encounter Plan of Treatment Upcoming Encounters Date Type Department Care Team (Late st Contact Info) Description 08/22/2024 1:30 PM EST Office Visit Adult Medicine - [facility] [address] [place] [address] Denia Lake MD [address] [place] [address] 09/01/2024 9:00 AM EST Telemedicine [facility] [address] [address] [place] [address] Latoya Larry PA [address] [facility] [place] [address] 10/10/2024 9:00 AM EDT Office Visit Adult Medicine - [facility] [address] [place] [phone] Denia Lake MD [address] [place] [address] documented as of this encounter Visit Diagnoses Not on filedocumented in this encounter Care Teams Chief Enterprise Architect Relationship Specialty Start Date End Date Denia Lake MD [address] [place] [address] PCP - General Internal Medicine 05/31/24 documented as of this encounter
--- OUTSIDE RECORDS SUMMARY | 2024-08-18 12:01 | XMS_ITS | Encounter Summary ---
Author Organization [facility] Address [address] [place] [address] Care Team Providers Care Supply Aide Name Role Phone Denia Lake MD Primary Care Prov ider Reason for Visit * Reason Onset Date Comments Shoulder Pain 08/15/2024 Encounter Details Date Type Department Care Team (Late st Contact Info) Description 08/15/2024 Telephone Adult Medicine - [place] [address] [place] [phone] Denia Lake MD [address] [place] [address] Shoulder Pain Social History Tobacco Use Types Packs/Day Years [...] as of this encounter Progress Notes * Dia Gonzales RN - 08/18/2024 10:02 AM EST Appt scheduled 08/22 * Dia Gonzales RN - 08/15/2024 5:03 PM EST Left shoulder pain. For a while now Also needs to talk to PCP about testosterone levels, cholesterol, PT referral, anticoagulation and needs ativan rx due to upcoming MRI * May Hurtado - 08/15/2024 3:51 PM EST Patient called back. Please call * Dia Gonzales RN - 08/15/2024 10:00 AM EST Left message to call back * Ruma Borja - 08/15/2024 9:15 AM EST Patient call requires triage: Symptoms patient is presenting: left shoulder pain, missed appt for 08/08 but is still having pain, states it is devastating How long has patient had these symptoms?: over a week For ALL patients calling to schedule any appointment (routine, sick visit, follow up, consult, etc.) in the outpatient setting please ask the following questions: Do you have fever of higher than 101, sore throat with difficulty swallowing or severe shortness ofbreath? no If YES to any of these above symptoms, send a message to triage and do not book. Red dot. If no, an audio or video visit should be booked. Have you had close contact with someone with Coronavirus in the last 14 days? no Have you traveled abroad? no Have you traveled recently to another state outside of [place], [place], [place], [place], [place], [place], [place]? no o If yes, did you quarantine for 14 days or have a negative covid test? no If yes to any of the above, patient is not to be scheduled in office until after 14 day quarantine or negative covid test. If pain or injury related was it due to an accident at work or from a motor vehicle accident? If yes, date of accident/Injury: No If yes, gather republican insurance information Third Democrat Information: not applicable PCP: Denia Lake MD Payor: [facility] MEDICAID / Plan: [facility] MEDICA[employer] / Product Type: *No Product type* / documented in this encounter Plan of Treatment Upcoming Encounters Date Type Department Care Team (Late st Contact Info) Description 08/22/2024 1:30 PM EST Office Visit Adult Medicine - [place] [address] [place] [address] Denia Lake MD [address] [place] [address] 09/01/2024 9:00 AM EST Telemedicine [facility] [place] [facility] [address] [address] [place] [phone] Latoya Larry PA [address] [place] [address] [place] [address] 10/10/2024 9:00 AM EDT Office Visit [facility] [address] [place] [phone] Denia Lake MD [address] [place] [address] documented as of this encounter Visit Diagnoses Not on filedocumented in this encounter Care Teams Supply Aide Relationship Specialty Start Date End Date Denia Lake MD [address] [place] [address] PCP - General Internal Medicine 05/31/24 documented as of this encounter
--- OUTSIDE RECORDS SUMMARY | 2024-08-18 12:01 | XMS_ITS | Clinical Summary ---
Author Organization [facility] Address [address] [address] Phone Care Team Providers Care Armature Winder Helper Repair Name Role Phone Denia Lake MD Primary Care Pr ovider Allergies Active Allergy Reactions Criticality Noted Date Comments Gadopentetate Nausea And Vomiting Low 08/13/2014 Iodinated Contrast Media Other (see comments) 10/26/2023 Nitrofurantoin Swelling 03/27/2009 Other Reaction(s): Not available Sulfamethoxazole-Trimeth oprim Hives 03/07/2009 Medications ibuprofen (ADVIL,MOTRIN) 600 MG tablet Take 1 tablet by mouth every 8 (eight) hours if needed 01/28/2024 Active acetaminophen (TYLENOL) 325 MG tablet Take 1 tablet by mouth every 6 (six) hours if needed 01/28/2024 Active levothyroxine (SYNTHROID, LEVOTHROID) 25 MCG tablet Take 1 tablet by mouth 1 (one) time each day 01/28/2024 Active carvedilol (COREG) 3.125 MG tablet Take 1 tablet by mouth in the morning and 1 tablet in the evening. Take with meals. 01/21/2024 Active omeprazole (PriLOSEC) [address] capsule Take 1 tablet by mouth 1 (one) time each day 01/21/2024 Active valsartan (DIOVAN) 40 MG tablet Take 1 tablet by mouth 1 (one) time each day 12/24/2023 Active spironolactone (ALDACTONE) 25 MG tablet Take 1 tablet by mouth 1 (one) time each day 06/02/2021 Active cholecalciferol (VITAMIN D-3 SUPER STRENGTH) 50 MCG (2000 UT) tablet Take 1 tablet by mouth 1 (one) time each day 04/12/2024 Active ferrous sulfate 325 (65 Fe) MG tablet Take 1 tablet by mouth 1 (one) time each day 01/03/2024 Active ascorbic acid (VITAMIN C) 500 MG tablet Take 1 tablet by mouth 1 (one) time each day 12/21/2023 Active estradiol (ESTRACE) 0.1 MG/GM vaginal cream Insert 0.5 g into the vagina 1 (one) time each day 08/03/2023 Active tiZANidine (ZANAFLEX) 2 MG tablet Take 1 tablet by mouth in the morning and 1 tablet at noon and 1 tablet in the evening. 01/30/2023 Active tolterodine (DETROL) 2 MG tablet Take 1 tablet by mouth 1 (one) time each day Active nicotine (NICODERM CQ) 14 MG/24HR Place 1 patch on the skin 1 (one) time each day at the same time 06/17/2023 Active Active Problems Problem Noted Date Diagnosed Date Acute nontraumatic kidney injury, not otherwise specified 07/01/2024 Dyslipidemia 07/01/2024 Hypertension 07/01/2024 Dilated cardiomyopathy 01/22/2022 Overview (07/01/2024): Last Assessment & Plan: Patient's LVEF was noted to be around 40-45% on echocardiogram and MRIs in 2021 though with recovery on her pharmacologic nuclear stress test. She is currently on Aldactone and Diovan. She has been tolerating these medications well. Her blood pressure though reasonably well controlled, does give room for addition of beta-gosia for GDMT for her nonischemic myopathy. We will start low-dose Coreg 3.125 mg twice daily and repeat her echocardiogram in about 3 months. Side effects discussed with the patient and her daughter. All questions were answered. They will notify us if she has any symptoms referable to possible hypotension as a result of starting the low-dose Coreg. 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 Collazo-01/23/2021 Multiple sclerosis 04/07/2006 Overview (07/01/2024): Dr. Garcia, Dr. 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 Tysabri, Baclofen pump- greatly benefits 10/27- [facility] - PT, OT Group Adult Daycare/Fostercare from [facility] (caregiver Topher Adams, backup Evangelina AdamsSy) - 06/29 - left [facility] 07/31 - per pt request, returning from Tysabri to Betaseron and IV Solumedrol 01/28 - per [facility], does not qualify for FASHION PATTERNMAKER as does not require hands-on with 2 ADLs; her son's girlfriend will be foster caregiver 03/31 - Rebekah 09/29-group adult foster care 11/29-physiatry referral 12/30-difficulties with ADLs-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 [address] [place] [phone] Oneil Spann MD No Show (No show/) from Last 3 Months Family History Medical History Relation Comments Alcohol abuse Father Rheum arthritis Father Cancer Maternal Grandfather Rectal Cancer Maternal Grandmother Lung Cancer Mother thyroid Rheum arthritis Mother Cancer Mother's Sister thyroid Relation Status Comments Father Maternal Grandfather Maternal Grandmother Mother Alive Mother's Sister Social History Tobacco Use Types Packs/Day Years Used Date Smoking Tobacco: Every Day Cigarettes Started: 1977 Smokeless Tobacco: Never Tobacco Cessation:Ready to Q uit: Not Asked; Counseling Given: Not Answered Alcohol Use Standard Drinks/Week Comments Not Currently 0 (1 standard drink = 0.6 oz pur e alcohol) Rarely Comments Unknown Sex and Gender Information Value Date Recorded Sex Assigned at Not on file Legal Sex Female 8:32 AM EDT Gender Identity Not on file Sexual Orientation Not on file Plan of Treatment Health Maintenance Due Date Last Done Comments Breast Cancer Screening 1961 Pneumococcal Vaccine: Pediatrics (0 to 5 Years) and At-Risk Patients (6 to 64 Years) (1 of 2 - PCV) 1967 Colorectal Cancer Screening: Annual FOBT 2010 Colorectal Cancer Screening: Colonoscopy 2010 Colorectal Cancer Screening: Sigmoidoscopy 2010 Influenza Vaccine Completed 03/30/2024, , 05/03/2023, Additional history exists Hepatitis B Vaccine Aged Out No longe r eligible based on patient's age to complete this topic Insurance [facility] ([id number]) Care Teams Armature Winder Helper Repair Relationship Specialty Start Date End Date Denia Lake MD [address] [place] [address] PCP - General Internal Medicine 10/18/24
--- OUTSIDE RECORDS SUMMARY | 2024-08-18 12:01 | XMS_ITS | Encounter Summary ---
Author Organization [facility] Address [address] [place] [address] Care Team Providers Care Manufacturing Mechanic Name Role Phone Denia Lake MD Primary Care Prov ider Reason for Visit * Reason Onset Date Comments Fitting for DME 07/20/2024 Encounter Details Date Type Department Care Team (Late st Contact Info) Description 07/20/2024 Telephone Adult Medicine - [place] [address] [place] [phone] Denia Lake MD [address] [place] [address] Fitting for DME Social History Tobacco Use [...] Progress Notes * Caroline Le MA - 07/21/2024 9:12 AM EST Faxed to [facility] @ [phone] * Caroline Le MA - 07/20/2024 4:49 PM EST Potty liners to use with her commode In your in basket. Thank you in advance * Abbi Orourkealonakaty - 07/20/2024 9:51 AM EST ME REQUEST Name of Product: chair liners Specific information about product large box of 280 # Needed 280 Reason patient is asking for this supply? Unknown to bsr Have you received this supply before? If yes , when?: Yes. Have you discussed the need for this supply with a provider at a recent visit? If yes, with who andwhen? No When completed: faxed to [facility] Have you told the patient it will take 7-10 days for completion of this request? Yes documented in this encounter Plan of Treatment Upcoming Encounters Date Type Department Care Team (Late st Contact Info) Description 08/22/2024 1:30 PM EST Office Visit Adult Medicine - [address] [phone] Denia Lake MD [address] [place] [address] 09/01/2024 9:00 AM EST Telemedicine [facility] for [facility] [address] [place] [phone] Latoya Larry PA [address] [place] [address] [place] [address] 10/10/2024 9:00 AM EDT Office Visit Adult Medicine [facility] [address] [place] [phone] Denia Lake MD [address] [place], [place] documented as of this encounter Visit Diagnoses Diagnosis Multiple sclerosis (CMS/HCC)- Primary Multiple sclerosis Neurogenic bladder Neurogenic bladder, NOS documented in this encounter Orders General Supply Count Last Ordered Date First Or dered Date GENERAL SUPPLY 1 07/20/2024 documented in this encounter Care Teams Manufacturing Mechanic Relationship Specialty Start Date End Date Denia Lake MD [address] [place] [address] PCP - General Internal Medicine 05/31/24 documented as of this encounter
--- OUTSIDE RECORDS SUMMARY | 2024-08-18 12:01 | XMS_ITS | Encounter Summary ---
Author Organization [facility] Address [address] [place] [address] Care Team Providers Care Theatrical Variety Agent Name Role Phone Denia Lake MD Primary Care Prov ider Reason for Visit * Reason Onset Date Comments Faxed Order [id number] 07/20/2024 Encounter Details Date Type Department Care Team (Late st Contact Info) Description 07/20/2024 Telephone Adult Medicine - [place] [address] [place] [phone] Denia Lake MD [address] [place] [address] Faxed Order [id number] Social History Tobacco Use Types Packs/Day Years [...] Progress Notes * Ashley [place] - 07/20/2024 10:13 AM EST PLEASE CLOSE MESSAGE WHEN ORDER HAS BEEN FAXED Faxed order [id number] received from [facility], requesting signature from provider. Please sign andfax back to [phone]. Order in orange folder documented in this encounter Plan of Treatment Upcoming Encounters Date Type Department Care Team (Late st Contact Info) Description 08/22/2024 1:30 PM EST Office Visit Adult Medicine - [place] [address] [place] [phone] Denia Lake MD [address] [place] [address] 09/01/2024 9:00 AM EST Telemedicine [facility] for [facility] [address] [place] [phone] Latoya Larry PA [address] [facility] [place] [address] 10/10/2024 9:00 AM EDT Office Visit Adult Medicine - [place] [address] [place] [phone] Denia Lake MD [address] [place] [address] documented as of this encounter Visit Diagnoses Not on filedocumented in this encounter Care Teams Theatrical Variety Agent Relationship Specialty Start Date End Date Denia Lake MD [address] [place] [address] PCP - General Internal Medicine 05/31/24 documented as of this encounter
--- OUTSIDE RECORDS SUMMARY | 2024-08-18 12:01 | XMS_ITS | Encounter Summary ---
Author Organization [facility] Address [address] [place] [address] Care Team Providers Care It Program Auditor Name Role Phone Denia Lake MD Primary Care Prov ider Reason for Visit * Reason Onset Date Comments Faxed Order [id number] 07/04/2024 Encounter Details Date Type Department Care Team (Late st Contact Info) Description 07/04/2024 Telephone Adult Medicine - [place] [address] [place] [phone] Denia Lake MD [address] [place] [address] Faxed Order [id number] Social History Tobacco Use Types Packs/Day Years [...] as of this encounter Progress Notes * Tish Orlando MA - 07/05/2024 3:21 PM EST Faxed, confirmed and filed. * Ashley [place] - 07/04/2024 10:50 AM EST PLEASE CLOSE MESSAGE WHEN ORDER HAS BEEN FAXED Faxed order D/C Summary Report [id number] received from [facility] BATISTA, requesting signature from provider. Please sign and fax back to [phone]. Order in orange folder documented in this encounter Plan of Treatment Upcoming Encounters Date Type Department Care Team (Late st Contact Info) Description 08/22/2024 1:30 PM EST Office Visit Adult Medicine - [place] [address] [place] [address] Denia Lake MD [address] [place] [address] 09/01/2024 9:00 AM EST Telemedicine [facility] for [facility] [address] [place] [address] Latoya Larry PA [address] [facility] [place] [address] 10/10/2024 9:00 AM EDT Office Visit Adult Medicine - [address] [phone] Denia Lake MD [address] [place] [address] documented as of this encounter Visit Diagnoses Not on filedocumented in this encounter Care Teams It Program Auditor Relationship Specialty Start Date End Date Denia Lake MD [address] [place] [address] PCP - General Internal Medicine 05/31/24 documented as of this encounter
--- OUTSIDE RECORDS SUMMARY | 2024-08-18 12:01 | XMS_ITS | Clinical Summary ---
Author Organization [facility] Address [address] [place] [address] Care Team Providers Care Senior Litigation Paralegal Name Role Phone Denia Lake MD Primary Care Prov ider Allergies Active Allergy Reactions Criticality Noted Date Comments Gadopentetate Nausea And Vomiting Low 08/13/2014 Nitrofurantoin Swelling 03/27/2009 Sulfamethoxazole-Trimethoprim Hives 2008 Medications Medication Sig Dispensed Refills Start Date End Date Status ocrelizumab (OCREVUS) 300 MG/10ML SOLN Inject 20 mL (600 mg total) into the vein. 600 mg every 6 months 0 Active omeprazole (PriLOSEC) 20 MG capsule Take 1 capsule (20 mg total) by mouth daily. 0 Active levothyroxine (SYNTHROID) tablet 25 mcg Take 1 tablet (25 mcg total) by mouth daily. 0 Active vitamin C (ASCORBIC ACID) 250 MG tablet Take 1 tablet (250 mg total) by mouth daily. 0 Active Vitamin D, Ergocalciferol, 50 MCG (2000 UT) CAPS Take 2,000 Units by mouth daily. 0 Active Calcium-Phosphorus- Vitamin D (Citracal +D3) 250-107-500 MG-MG-UNIT CHEW Chew 1 Units by mouth daily. 30 tablet 5 07/25/2020 Active atorvastatin (LIPITOR) tablet 40 mg Take 1 tablet (40 mg total) by mouth daily. 0 05/22/2021 Active spironolactone (ALDACTONE) tablet 25 mg Take 1 tablet (25 mg total) by mouth daily. 0 06/02/2021 Active ibuprofen 600 MG tablet Take 1 tablet (600 mg total) by mouth every 8 (eight) hours as needed for pain. 0 Active acetaminophen (TYLENOL) 325 MG tablet Take 2 tablets (650 mg total) by mouth every 6 (six) hours as needed for pain. 0 Active cephalexin (KEFLEX) 250 MG capsule 0 01/23/2022 Active oxyCODONE (ROXICODONE) 5 MG immediate release tablet Take 1 tablet (5 mg total) by mouth every 6 (six) hours as needed. for pain 0 09/08/2022 Active EPINEPHrine 0.3 MG/0.3ML SOAJ 0 08/14/2022 Active LORazepam (ATIVAN) 0.5 MG tablet Take 1 tablet (0.5 mg total) by mouth every 6 (six) hours as needed. 5 tablet 0 12/23/2023 Active methylPREDNISolone (MEDROL DOSEPACK) 4 MG tablet follow package directions 21 tablet 0 03/16/2024 Active tiZANidine (ZANAFLEX) 2 MG tablet TAKE 1 TABLET BY MOUTH 3 TIMES A DAY. 90 tablet 0 05/09/2024 Active Active Problems Problem Noted Date Diagnosed Date MS (multiple sclerosis) 11/25/2021 Urinary urgency 11/02/2019 Depression 11/02/2019 High blood pressure 11/02/2019 Hyperlipidemia 11/02/2019 Lumbar radiculopathy 11/02/2019 Pre-diabetes 11/02/2019 Lumbar spinal stenosis 11/02/2019 Family History Medical History Relation Name Comments Thyroid disease Daughter Thyroid disease Maternal Aunt Neuropathy Mother Thyroid disease Mother Multiple sclerosis Neg Hx Relation Name Status Comments Daughter Maternal Aunt Mother Social History Tobacco Use Types Packs/Day Years Used Date Smoking Tobacco: Every Day Smokeless Tobacco: Never Tobacco Cessation:Ready to Q uit: Not Asked; Counseling Given: Not Answered Alcohol Use Standard Drinks/Week Comments Yes 0 (1 standard drink = 0.6 oz pur e alcohol) rare Sex and Gender Information Value Date Recorded Sex Assigned at Female 01/27/2022 11:14 AM EDT Gender Identity Not on file Sexual Orientation Not on file Job Start Date Occupation Industry Not on file Not on file Not on file Last Filed Vital Signs Vital Sign Reading Time Taken Comments Blood Pressure 113/97 11/19/2023 9:11 AM EDT Pulse 70 11/19/2023 9:11 AM EDT Temperature 36.3 ??C (97.4 ??F) 11/19/2023 9:11 AM ED T Respiratory Rate 18 11/19/2023 9:11 AM EDT Oxygen Saturation 97% 11/19/2023 9:11 AM EDT Inhaled Oxygen Concentration - - Weight 86.2 kg (190 lb) 10/05/2022 10:26 AM EDT Height 172.7 cm (5' 8 ) 10/05/2022 10:26 AM EDT Body Mass Index 28.89 10/05/2022 10:26 AM EDT Plan of Treatment Health Maintenance Due Date Last Done Comments Hepatitis C Screening 1961 Pneumococcal Vaccine (1 of 2 - PCV) 1967 Depression Screening 1973 BMI Counseling 1979 Preventative Health Evaluation 1979 Tobacco Cessation Counseling 1979 Cervical Cancer Screening (Pap Smear) 1982 Colon Cancer Screening (Colonoscopy) 2006 Breast Cancer Screening (Mammogram) 2011 Shingrix-Zoster Vaccine (1 of 2) 2011 DTap / Tdap / Td (2 - Td or Tdap) 02/08/2019 02/08/2009 COVID-19 Vaccine ( season) 2024 07/03/2021, 11/01/2020, 10/11/2020 Influenza Vaccine (#1) 2024 , 06/25/2022, 04/04/2021, Additional history exists RSV Adult > 60+ Yrs or (1 - 1-dose 75+ series) 02/26/2036 Hepatitis B Vaccines Aged Out No long er eligible based on patient's age to complete this topic RSV Ped < 20 months Aged Out No longe r eligible based on patient's age to complete this topic Care Teams Senior Litigation Paralegal Relationship Specialty Start Date End Date Denia Lake MD PCP - General Internal Medicine 11/09/23
--- OUTSIDE RECORDS SUMMARY | 2024-08-18 12:01 | XMS_ITS | Encounter Summary ---
Author Organization [facility] Address [address] [place] [address] Care Team Providers Care Lobby Attendant Name Role Phone Denia Lake MD Primary Care Prov ider Reason for Visit * Reason Onset Date Comments Fitting for DME 08/16/2024 Encounter Details Date Type Department Care Team (Late st Contact Info) Description 08/16/2024 Telephone Adult Medicine - [place] [address] [place] [phone] Denia Lake MD [address] [place] [address] Fitting for DME Social History Tobacco Use [...] Progress Notes * Caroline Le MA - 08/17/2024 4:26 PM EST Called to verify about the letter of medical necessity and spoke to Marco who then transferred me to [place] [address] And she will fax it to [facility]. * Chani Toledo - 08/16/2024 10:57 AM EST Needs letter of medical necessity supporting the needs of a reclining chair. Pt has MS. This is [facility] supply. Pt has an appt coming up on 08/22/24. And will discuss this at her appointment. The fax is [phone]. documented in this encounter Plan of Treatment Upcoming Encounters Date Type Department Care Team (Late st Contact Info) Description 08/22/2024 1:30 PM EST Office Visit Adult Medicine [address] [phone] Denia Lake MD [address] [place] [address] 09/01/2024 9:00 AM EST Telemedicine [facility] [place] [address] [place] [phone] Latoya Larry, NEEL [address] [place] [address] [place] [address] 10/10/2024 9:00 AM EDT Office Visit [address] [phone] Denia Lake MD [address] [place] [address] documented as of this encounter Visit Diagnoses Not on filedocumented in this encounter Care Teams Lobby Attendant Relationship Specialty Start Date End Date Denia Lake MD [address] [place] [address] PCP - General Internal Medicine 05/31/24 documented as of this encounter
--- OUTSIDE RECORDS SUMMARY | 2024-08-18 12:02 | XMS_ITS | Clinical Summary ---
Author Organization [facility] Address [address] [place] [address] Phone Care Team Providers Care Conveyor Feeder Name Role Phone Denia Lake MD Primary Care Prov ider Allergies Active Allergy Reactions Criticality Noted Date Comments Gadopentetate Dimeglumine Nausea And Vomiting Low 0 08/13/2014 Iodinated Contrast Media 10/26/2023 Other Reaction(s): Rash/Dermatitis Nitrofurantoin Swelling 03/27/2009 Sulfamethoxazole-Trimetho prim Hives 03/07/2009 Medications Medication Sig Dispensed Refills Start Date End Date Status disposable gloves (Nitrile Exam Gloves) misc 5 Units by Does not apply route 4 times daily. 10/27/2023 Active medical supply, miscellaneous (MISCELLANEOUS MEDICAL SUPPLY [facility]) GAIT/TRANSFER BELT 1 Units by Does not apply route daily. 01/04/2024 Active cold-hot pack (MULTIPURPOSE ICE AND HEAT WRAP [facility]) 1 Patch by Does not apply route 3 times daily as needed for Other. 02/16/2024 Active miscellaneous medical supply misc Bed Wedge 1 Each by Does not apply route once for 1 dose. 11/21/2021 Active miscellaneous medical supply misc CAREX ULTRA GRABBER 32 1 Units by Does not apply route daily. 09/22/2023 Active walker (Ultra-Light Rollator) misc 1 Units by Does not apply route daily. 09/22/2023 Active iron polysaccharide complex (POLYSACCHARIDE IRON COMPLEX ORAL) Take 180 mg by mouth daily. Active syringe with needle 3 mL 23 x 1 syringe 1 Syringe by Does not apply route every 30 days. ADMIN B12 Injection Q month 05/04/2024 Active needle, disp, 25 gauge 25 gauge x 1 1/2 needle Use to give Vit B 12 injection 05/04/2024 Active acetaminophen (TYLENOL) 325 mg tablet TAKE 1 TABLET BY MOUTH EVERY 6 HOURS NEEDED FOR PAIN 01/28/2024 Active albuterol sulfate (ProAir RespiClick) 90 mcg/actuation aerosol powdr breath activated Inhale 2 Puffs into the lungs every 4 hours. Active ascorbic acid, vitamin C, 500 mg capsule Take by mouth. Active cholecalciferol (VITAMIN D-3) 50 mcg (2,000 unit) capsule Take by mouth daily. Active cyanocobalamin (VITAMIN B-12) 1,000 mcg/mL injection Inject 1 mL into the muscle every 30 days. 05/04/2024 Active docusate sodium (COLACE) 100 mg capsule Take 1 Capsule by mouth 2 times daily. Active EPINEPHrine (EpiPen 2-Nimesh) 0.3 mg/0.3 mL injection Inject 0.3 mg as directed as needed. Active famotidine (PEPCID) 20 mg tablet Take 1 Tablet by mouth 2 times daily. 05/04/2024 05/29/20 Active nicotine (NICODERM CQ) 14 mg/[address] 1 Patch onto the skin every 24 hours. Active tiZANidine (ZANAFLEX) 2 mg tablet 01/30/2023 Active tolterodine (DETROL) 2 mg tablet Take 1 Tablet by mouth daily. Active glatiramer (COPAXONE) 40 mg/mL injection Inject 1 mL (40 mg total) under the skin 3 (three) times a week. 12 each 5 06/09/2024 Active ferrous sulfate 325 mg (65 mg elemental iron) tablet TAKE 1 TABLET BY MOUTH EVERY DAY 30 tablet 5 06/23/2024 Active incontinence pad, liner, disp padIndications:Mult iple sclerosis (CMS/HCC),Neurogeni c bladder To use Bladder pads with 11 refills to use for life. 240 each 06/28/2024 Active carvediloL (COREG) 3.125 mg tablet TAKE 1 TABLET BY MOUTH TWICE A DAY WITH MEALS 180 tablet 07/25/2024 Active carvediloL (COREG) 3.125 mg tablet Take 1 tablet (3.125 mg total) by mouth 2 (two) times a day with meals. Active levothyroxine (SYNTHROID, LEVOTHROID) 25 mcg tablet TAKE 1 TABLET BY MOUTH EVERY DAY 90 tablet 1 07/27/2024 Active levothyroxine (SYNTHROID, LEVOTHROID) 25 mcg tablet Take 1 Tablet by mouth daily. 01/28/2024 07/27/19 25 Discontinued Hospital, Clinic, or Other Facility Administered Medication Ordered Dose Route Frequency Start Date End Date Status cyanocobalamin (VITAMIN B-12) injection 1,000 mcgIndications:Vitamin B12 deficiency 1000 mcg IM Every 30 days 08/18/2024 01/15/2025 Active Active Problems Problem Noted Date Diagnosed Date History of small bowel obstruction 06/12/2024 Abdominal pain 12/01/2023 Nausea & vomiting 12/01/2023 SBO (small bowel obstruction) 11/29/2023 Arthritis of knee 06/07/2023 Thyroid nodule 06/23/2022 Steroid-induced hyperglycemia 06/23/2022 Dilated cardiomyopathy 01/22/2022 Overview (05/29/2024): Last Assessment & Plan: Patient's LVEF was [...] a result of starting the low-dose Coreg. Hip pain 12/10/2021 Leg edema 10/17/2021 Overview (05/29/2024): [facility] ER on 10/15/21 DDD (degenerative disc disease), lumbar 01/25/20 21 Hyperlipidemia 11/02/2019 Overview (05/29/2024): Last Assessment & Plan: The patient has had about a 30 pound unintentional weight loss. She has had similar on other statins. She stopped her Lipitor only for a couple of days and then was worried about the effect on her cholesterol. We will stop her statin for at least 2 weeks and follow her symptoms. We discussed statins to reduce cardiovascular risk over many years and a statin holiday is unlikely to have serious immediate effects. If prolonged statin holiday does not improve her appetite and weight loss, will refer back to PCP for ongoing evaluation. The patient's daughter will send me a Force-A message in a couple weeks and let me know how she is doing. Lumbar radiculopathy 11/02/2019 Overview (05/29/2024): Low back pain. Pre-diabetes 11/02/2019 Urinary urgency 11/02/2019 Frequent UTI 03/02/2019 Osteopenia 04/13/2016 Essential hypertension 01/29/2016 Overview (05/29/2024): Last Assessment & Plan: Patient's blood pressure is recently well controlled with plan for further medication titration for her nonischemic cardiomyopathy. Continue for now her Aldactone and Diovan. Add Coreg 3.125 mg daily. Side effects discussed with the patient and her daughter. All questions answered Gastroesophageal reflux disease without esophagi tis 01/29/2016 Vitamin D deficiency 07/05/2015 Hypothyroidism 05/15/2015 Right knee pain 2015 Overview (05/29/2024): Dr. Rock 01/30 - PT, brace Neurogenic bladder 10/23/2014 Overview (05/29/2024): Referred to Dr. Posadas by [facility] 10/31 - oxybutynin Leukopenia 10/19/2014 Overview (05/29/2024): Noted at [facility] 10/23/14 - [facility] following Splenomegaly 11/08/2012 Dyspnea 06/28/2012 Overview (05/29/2024): Dr. Susan Guerra - likely secondary to MS Failed back syndrome of lumbar spine 06/24/2012 Overview (05/29/2024): Removal of the painful lumbar segmental hardware L4-S1 by Dr. Collazo-01/23/2021 Periodic limb movement disorder 05/13/2012 Overview (05/29/2024): 04/29 - sleep study; advised to check ferritin level and consider dopamine agonist trial Radiologic findings of lung field, abnormal 01/17 Overview (05/29/2024): 01/27 - Referred to afloat cryptologic manager by Dr. 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 Garcia- indomethacin Falls frequently 06/06/2010 Overview (05/29/2024): Walks with Burkinan crutch 05/01 - using a wheeled walker Constipation 07/03/2008 Overview (05/29/2024): Dr. Dwyer- likely secondary to MS & Baclofen- increase Miralax to BID & add Amitiza; water intake encouraged Paralysis spastic 05/22/2008 Overview (05/29/2024): Botox injections Dr. Meier (PM&R)- Baclofen pump 09/28 - patient expresses interest in discontinuing Depression 07/16/2006 Multiple sclerosis 04/07/2006 Overview (05/29/2024): Dr. Garcia, Dr. 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-on with 2 ADLs; her son's girlfriend will be foster caregiver 03/31 - [place] 09/29-group adult foster care 11/29-physiatry referral 12/30-difficulties with ADLs-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, bathing without assistance, dressing 05/02 - pending repeat MRI brain; may be a Provigil candidate 10/01 - hospital admissions for flares; for Neuro, pending repeat MRI brain; possible Provigil for fatigue Encounters Date Type Department Care Team Description 08/18/[address] [phone] Caroline Le [place] Fitting for DME ([facility]/for Seat Lift recliner) 08/16/2024 [facility] [address] [place] [address] Denia Currie MD Fitting for DME 08/15/2024 Telephone Adult [facility] [address] [place] [address] Denia Currie MD Shoulder Pain 08/04/2024 [facility] [address] [place] [address] Denia Currie MD Faxed Order [id number] 07/20/2024 [facility] [address] [place] [address] Denia Currie MD Faxed Order [id number] 07/20/2024 [facility] [address] [place] [address] Denia Currie MD Faxed Order [id number] 07/20/2024 Telephone Adult [facility] [address] [place] [phone] Denia Currie MD Fitting for DME 07/05/2024 Telephone Adult [facility] - [place] [address] [place] [address] Denia Currie MD Fitting for DME 07/04/2024 Telephone Adult [facility] [address] [place] [address] Denia Currie MD Faxed Order [id number] 06/29/2024 Billing Patient Not Present Adult [address] [phone] Monique Best [place] Multiple sclerosis (CMS/HCC) (Primary Dx); Other chronic pain; Pain in right leg; Pain in left leg; Low back pain, unspecified back pain laterality, unspecified chronicity, unspecified whether sciatica present; Essential (primary) hypertension 06/28/2024 Telephone [facility] [address] [place] [address] Denia Currie MD Forms/questionnaire s ([facility] 05/24/2024-07/22/2024 ) 06/19/2024 Telephone [facility] [address] [place] [address] Denia Currie MD Fitting for DME 06/16/2024 10:30 AM [facility] Hematology Oncology [address] [place] [phone] Heladio Duke MD Anemia, unspecified type (Primary Dx); B12 deficiency 06/16/2024 Billing Patient Not Present Adult [facility] [address] [place] [address] Monique Best [place] Multiple sclerosis (CMS/HCC) (Primary Dx); Urinary tract infection without hematuria, site unspecified; Essential (primary) hypertension; Gastro-esophageal reflux disease without esophagitis; Hypothyroidism, unspecified type; Low back pain, unspecified back pain laterality, unspecified chronicity, unspecified whether sciatica present 06/14/2024 Telephone Adult [facility] [address], [place] [phone] Denia Currie MD [facility] 05/30/2024-06/12/2024 9:00 AM EST Office Visit Adult [address] [phone] Navid Powell PA Elbow pain, right (Primary Dx); Screening mammogram for breast cancer; Essential hypertension; Multiple sclerosis (CMS/HCC); Frequent UTI; History of small bowel obstruction 06/12/2024 Telephone Adult [facility] [address] [place] [address] Denia Currie MD Faxed Order [id number] 06/08/[address] [phone] Denia Currie MD triage call back 06/08/[address] [phone] Denia Currie MD Faxed Order [id number] 06/06/[address] [phone] Caroline Le [place] Fitting for DME 06/05/[address] [address] Denia Currie MD Faxed Order [facility] Transfer Summary Report 05/24/2024-07/22/2024 06/01/2024 3:00 PM EST Office Visit [facility] Hematology Oncology [address] [place] [address] Heladio Duke MD Anemia, unspecified type (Primary Dx) 06/01/2024 1:30 PM EST Office Visit [facility] [address] [place] [address] Latoya Larry PA Multiple sclerosis (CMS/HCC) (Primary Dx) 05/29/2024 Telephone [facility] [address] [place] [address] Denia Currie MD 05/26/2024 Telephone [facility] [address] [facility] [address] [place] [phone] Rajiv Brooke RN Multiple Sclerosis 05/24/2024 Telephone [facility] [address] [place] [address] Denia Currie MD fax 05/23/2024 Nurse Triage [facility] [address] [place] [phone] Denia Currie MD 05/23/2024 Telephone [facility] [address] [place] [phone] Caroline Le [place] Fitting for DME 05/23/2024 Telephone [facility] [address] [place] [address] Denia Currie MD from Last 3 Months Immunizations Name Administration Dates Next Due Influenza Quadravalent, MDCK , 0.5ml, preservative free (Flucelvax) 6mo and older 05/03/2023,06/25/2022,04/04/2021,2019,05/09/2019 Influenza Quadravalent, MDCK , 0.5ml, with preservative (Flucelvax) 6mo and older 04/14/2018,04/15/2017 Influenza trivalent, 0.5mL, preservative free (Fluarix; FluLaval; Fluzone) ages 6mo and older (Afluria) 3 years and older 03/30/2024,04/06/2016,05/15/2015,2013,07/25/2012,05/31/2007,04/21/2005 Measles 08/02/2015 Mumps 08/02/2015 PPD Test 11/10/2013,11/08/2013 Pfizer SARS-CoV-2 COVID-19, mRNA, LNP-S, preservative free 07/03/2021,11/01/2020,10/11/2020 Rubella 08/02/2015 Td Tetanus diptheria (Tdvax) 7yo and older 03/02/2019 Tdap Tetanus diptheria acell ular pertussis (Boostrix; Adacel) 7yo and older 02/08/2009 Varicella live (Varivax) 12m o and older 08/02/2015 Surgical History Surgery Date Site/Laterality Comments OTHER SURGICAL HISTORY 11/30/2008 PROCEDURE: SC IMPLTJ REVJ/RPSG ITHCL/EDRL CATH TELEGRAPH OFFICE TELEPHONE CLERK W/O RAMOS; COMMENT: Dr. Crane - Baclofen pump OTHER SURGICAL HISTORY 08/13/2010 PROCEDURE: SC ARTHRS KNE SURG W/MENISCECTOMY MED/LAT W/SHVG; COMMENT: Dr. Hope Linton OTHER SURGICAL HISTORY 10/13/2010 PROCEDURE: SC INSERTION PICC W/O IMG GDN 5 YR/>; COMMENT: R IJ COLONOSCOPY 2004 PROCEDURE: HISTORICAL COLONOSCOPY; COMMENT: Jen; ?microscopic colitis HERNIA REPAIR 08/22/2015 PROCEDURE: SC REPAIR FIRST ABDOMINAL WALL HERNIA; COMMENT: Dr. Bradford OTHER SURGICAL HISTORY PROCEDURE: HISTORICAL SUPRACERVICAL HYSTERECTOMY WITH BSO BACK SURGERY 09/21/2014 PROCEDURE: HISTORICAL BACK SURGERY; COMMENT: Dr. Crane - L5-S1, L4-L5 anterior radical discectomy, arthodesis; L4-L5 interbody cage placement SECTION PROCEDURE: HISTORICAL BACK SURGERY 01/2021 PROCEDURE: HISTORICAL BACK SURGERY; COMMENT: Per patient, hardware removal and sacrum, Dr. Collazo Medical History Medical History Date Comments Constipation 07/03/2008 DX:Constipation; COMMENT: Dr. Dwyer- likely secondary to MS & Baclofen- increase Miralax to BID & add Amitiza; water intake encouraged Multiple sclerosis ([facility]/HCC) 04/07/2006 DX: Multiple sclerosis ([facility]); COMMENT: Dr. Garcia, Dr. 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 Susan Guerra - likely secondary to MS Splenomegaly 11/08/2012 DX:Splenomegaly Osteopenia 04/13/2016 DX:Osteopenia Failed back syndrome of lumbar spine 06/24/2012 DX:Failed back syndrome of lumbar spine; COMMENT: Dr. Crane, Dr. Mata 06/29 - 07/31 [facility] PT- discharge due to non-compliance 09/30 - L5-S1, L4-L5 anterior radical discectomy, arthodesis; L4-L5 interbody cage placement; [place] for inpatient rehab 12/31 - NOW - [facility] 06/02 - bilateral SI joint and ligament injections Acquired hammer toe 06/03/2007 DX:Acquired hammer toe; COMMENT: Dr. Valero, Dr. Aguero 10/01 - hammertoe boot and splint; if fails conservative treatment, may need hallux IP fusion and 2nd hammertoe repair Essential hypertension, benign 01/29/2016 D X:Essential hypertension, benign Falls frequently 06/06/2010 DX:Falls freque ntly; COMMENT: Walks with Burkinan crutch 05/01 - using a wheeled walker Hypothyroidism, acquired 05/15/2015 DX:Hypo thyroidism, acquired Leukopenia 10/19/2014 DX:Leukopenia; C OMMENT: Noted at [place] 10/23/14 - [facility] following Nasal fracture 02/26/2015 DX:Nasal fractur e; COMMENT: Dr. Guillory 03/02 - consider of septorhinoplasty at some point Neurogenic bladder 10/23/2014 DX:Neurogenic bladder; COMMENT: Referred to Dr. 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 Garcia- indomethacin Periodic limb movement disorder 05/13/2012 DX:Periodic limb movement disorder; COMMENT: 04/29 - sleep study; advised to check ferritin level and consider dopamine agonist trial Radiologic findings of lung field, abnormal 02/09/2012 DX:Radiologic findings of liss ng field, abnormal; COMMENT: 01/27 - Referred to afloat cryptologic manager by Dr. Jarrett for findings consistent with asbestosis on chest CT Paralysis spastic ([facility]/HCC) 05/22/2008 DX:P aralysis spastic ([facility]); COMMENT: Botox injections Dr. Meier (PM&R)- Baclofen pump 09/28 - patient expresses interest in discontinuing Vitamin D deficiency 07/05/2015 DX:Vitamin D deficiency History of abnormal cervical Pap smear 10/14/2011 DX:History of abnormal cervi michelle Pap smear; COMMENT: ASCUS 2011. PAP 11/17/2018: Cytology negative; High Risk HPV DNA negative DDD (degenerative disc disea se), lumbar 01/24/2021 DX:DDD (degenerative disc di sease), lumbar Lumbar radiculopathy 11/02/2019 DX:Lumbar r adiculopathy; COMMENT: Low back pain. Medical marijuana use 05/09/2021 DX:Medical marijuana use Tobacco use 05/09/2021 DX:Tobacco use; COMMENT: Coverage for Chantix denied Family History Medical History Relation Name Comments Other: thyroid cancer Aunt matern al aunt Rheum arthritis Father Alcoholism Other: rectal cancer Maternal Grandfather Lung cancer Maternal Grandmother smoker Other: thyroid cancer Mother Rheum arthritis Mother Relation Name Status Comments Aunt Daughter Evangelina Alive Father Maternal Grandfather Maternal Grandmother Mother Alive Son Topher Alive Social History Tobacco Use Types Packs/Day Years Used Date Smoking Tobacco: Every Day Cigarettes 0.2 47.1 Started: 07/19/1977 Smokeless Tobacco: Never Tobacco Cessation:Ready to Q uit: Yes; Counseling Given: Not Answered Alcohol Use Standard Drinks/Week Comments Not Currently 0 (1 standard drink = 0.6 oz pur e alcohol) Sex and Gender Information Value Date Recorded Sex Assigned at Not on file Gender Identity Not on file Sexual Orientation Not on file Job Start Date Occupation Industry Not on file Not on file Not on file Obstetrics History Last Filed Vital Signs Vital Sign Reading Time Taken Comments Blood Pressure 122/84 06/12/2024 9:33 AM EST Pulse 63 06/01/2024 2:57 PM EST Temperature 36.9 ??C (98.5 ??F) 06/12/2024 8:59 AM ES T Respiratory Rate - - Oxygen Saturation 100% 06/01/2024 2:57 PM EST Inhaled Oxygen Concentration - - Weight 72.6 kg (160 lb) 06/12/2024 8:59 AM EST Height 175.3 cm (5' 9 ) 06/12/2024 8:59 AM EST Body Mass Index 23.63 06/12/2024 8:59 AM EST Plan of Treatment Upcoming Encounters Date Type Department Care Team (Late st Contact Info) Description 08/22/2024 1:30 PM EST Office Visit Adult Medicine [facility] [address] [place] [address] Denia Lake MD [address] [place] [address] 09/01/2024 9:00 AM EST Telemedicine [facility] [address] [place] [address] Latoya Larry, PA [address] [facility] [place] [address] 10/10/2024 9:00 AM EDT Office Visit Adult [address] [phone] Denia Lake MD [address] [place] [address] Health Maintenance Due Date Last Done Comments Pneumococcal Vaccine: Pediatrics (0 to 5 Years) and At-Risk Patients (6 to 64 Years) (1 of 2 - PCV) 1966 Hepatitis A Vaccines (1 of 2 - Risk 2-dose series) 02/26/1980 Zoster Vaccines (2 of 2) 02/28/2022 01/03/2022, 07/19 Breast Cancer Screening 04/27/2022 04/27/2020 Colorectal Cancer Screening: Stool Based Tests (FOBT/FIT) 06/24/2022 Depression Screening 06/24/2022 HIV Screening 06/24/2022 Social Influencers of Health Screening 06/24/2022 Cervical Cancer Screening: HPV 11/18/2023 11/17/2018 COVID-19 Vaccine ( season) 2024 07/03/2021, 11/01/2020, 10/11/2020 Hypertension/CHF/CAD Annual BMP Blood Test 05/03/2025 05/03/2024, 05/03/2024, 01/03/2024 Cholesterol Screening (Lipid Panel) 01/02/2029 01/03/2024, 01/03/2024 DTaP,Tdap,and Td Vaccines (3 - Td or Tdap) 03/02/2029 03/02/2019, 02/08/2009 RSV Immunization Patients 60+ Years Old (1 - 1-dose 75+ series) 02/26/2036 Hepatitis C Screening Completed 11/08/2013 Varicella Vaccines Aged Out 08/02/2015 No longer eligible based on patient's age to complete this topic Influenza Vaccine Completed 03/30/2024, , 06/25/2022, Additional history exists HIB Vaccines Aged Out No longer eligi ble based on patient's age to complete this topic HPV Vaccines Aged Out No longer eligi ble based on patient's age to complete this topic Hepatitis B Vaccines Aged Out No long er eligible based on patient's age to complete this topic IPV Vaccines Aged Out No longer eligi ble based on patient's age to complete this topic MMR Vaccines Aged Out No longer eligi ble based on patient's age to complete this topic Meningococcal ACWY Vaccine Aged Out N o longer eligible based on patient's age to complete this topic RSV Immunization Patients Under 20 months Aged Out No longer eligible based on patient's age to complete this topic Procedures Procedure Name Priority Date/Time Associated Diagnosis Comments SANTOS URINE CULTURE TUBE Routine 08/07/19 25 4:17 PM EST Urinary tract infection without hematuria, site unspecified URINALYSIS WITH REFLEX MICROSCOPIC AND CULTURE Routine 08/07/2024 4:17 PM EST Urinary tract infection without hematuria, site unspecified URINALYSIS WITH REFLEX MICROSCOPIC AND CULTURE Routine 08/07/2024 4:17 PM EST Urinary tract infection without hematuria, site unspecified CULTURE URINE Routine 08/07/2024 4:17 PM EST Urinary tract infection without hematuria, site unspecified SC PROTEIN ELECTROPHORETIC FRACTIONATION & QUANTITATION SERUM Routine 06/01/2024 3:36 PM EST Anemia, unspecified type PROTEIN, TOTAL Routine 06/01/2024 3:36 PM EST Anemia, unspecified type CBC WITH AUTO DIFFERENTIAL Routine 06/01/2024 3:36 PM EST Anemia, unspecified type FERRITIN Routine 06/01/2024 3:36 PM EST Anemia, unspecified IRON AND TIBC Routine 06/01/2024 3:36 PM EST Anemia, unspecified INTRINSIC FACTOR BLOCKING ANTIBODY Routine 06/01/2024 3:36 PM EST Anemia, unspecified type HAPTOGLOBIN Routine 06/01/2024 3:36 PM EST Anemia, unspecified type PROTEIN ELECTROPHORESIS, SERUM Routine 06/01/2024 3:36 PM EST Anemia, unspecified type ERYTHROPOIETIN Routine 06/01/2024 3:36 PM EST Anemia, unspecified type VITAMIN B12 AND FOLATE Routine 3:36 PM EST Anemia, unspecified type CBC AND DIFFERENTIAL Routine 06/01/2024 3:36 PM EST Anemia, unspecified type ANNUAL BMP BLOOD TEST Routine 05/03/2024 LIPID PANEL Routine 01/03/2024 SCR MAMMO BI INCL CAD Routine 04/27/2020 11:20 AM EDT Encounter for screening mammogram for malignant neoplasm of breast HPV Routine 11/17/2018 HEPATITIS C SCREENING Routine 11/08/2013 from Last 3 Months or Most Recently Relevant to Health Maintenance Results * (ABNORMAL) Urinalysis with reflex microscopic and culture (08/07/2024 4:17 PM EST) [facility] Specific [place] Urine 1.023 1.003 - 1.030 LAB URINALYSIS - AUTOMATED METHOD 08/07/2024 6:34 PM [facility] pH, Urine 5.5 5.0 - 8.0 pH LAB URINALYSIS - AUTOMATED METHOD 08/07/2024 6:34 PM [facility] Leukocytes, Urine Large(A) Negative LAB URINALYSIS - AUTOMATED METHOD 08/07/2024 6:34 PM [facility] Nitrite, Urine Negative Negative LAB URINALYSIS - AUTOMATED METHOD 08/07/2024 6:34 PM [facility] Protein, Urine 100(A) <=Trace mg/dL LAB URINALYSIS - AUTOMATED METHOD 08/07/2024 6:34 PM [facility] Glucose, Urine Negative Negative mg/dL LAB URINALYSIS - AUTOMATED METHOD 08/07/2024 6:34 PM [facility] Ketones, Urine Negative Negative mg/dL LAB URINALYSIS - AUTOMATED METHOD 08/07/2024 6:34 PM [facility] Urobilinogen , Urine 1.0 0.2 - 1.0 mg/dL LAB URINALYSIS - AUTOMATED METHOD 08/07/2024 6:34 PM [facility] Bilirubin, Urine Negative Negative LAB URINALYSIS - AUTOMATED METHOD 08/07/2024 6:34 PM [facility] Blood, Urine Moderate(A) Negative LAB URINALYSIS - AUTOMATED METHOD 08/07/2024 6:34 PM [facility] RBC, Urine 10.7(H) 0 - 4 /HPF LAB URINALYSIS - AUTOMATED METHOD 08/07/2024 6:34 PM [facility] WBC, Urine >4,000(H) 0 - 4 /HPF LAB URINALYSIS - AUTOMATED METHOD 08/07/2024 6:34 PM [facility] Squamous Epithelial, Urine >100(H) 0 - 60 /LPF LAB URINALYSIS - AUTOMATED METHOD 08/07/2024 6:34 PM EST [facility] Non-Squamous Epithelial, Urine 2-5 Transitional epithelial cells. /LPF LAB URINALYSIS - AUTOMATED METHOD 08/07/2024 6:34 PM [facility] Crystals, Urine Light Calcium Oxalate crystals. /LPF LAB URINALYSIS - AUTOMATED METHOD 08/07/2024 6:34 PM [facility] Bacteria, Urine Few(A) Negative /HPF LAB URINALYSIS - AUTOMATED METHOD 08/07/2024 6:34 PM [facility] Hyaline Casts, Urine 5.0(H) 0 - 3 /LPF LAB URINALYSIS - AUTOMATED METHOD 08/07/2024 6:34 PM [facility] Yeast, Urine Present(A) None /HPF LAB URINALYSIS - AUTOMATED METHOD 08/07/2024 6:34 PM [facility] Urine Urine specimen obtained by clean catch procedure / Unknown Non-blood Collection / Unknown 08/07/2024 4:17 PM EST 08/07/2024 4:17 PM EST Denia Lake MD LAB URINE ORDERABLES Performing Organization Address [facility]/ZIP Co de Phone Number [facility] [address] [place] [address], * Santos urine culture tube (08/07/2024 4:17 PM EST) Extra Tube Hold for add-ons. 08/07/2024 6:01 PM [facility] Comment:Auto resulted. Urine Urine specimen obtained by clean catch procedure / Unknown Non-blood Collection / Unknown 08/07/2024 4:17 PM EST 08/07/2024 4:17 PM EST Denia Lake MD LAB URINE ORDERABLES [facility] [address] [place] [address], [place] [phone] * Culture urine (08/07/2024 4:17 PM EST) Pathologist [facility] Culture, Urine >100,000 CFU/mL Mixed urogenital adan, no uropathogens present. Suggest repeat specimen if clinically indicated. 08/08/2024 1:32 PM EST [facility] Urine Urine specimen obtained by clean catch procedure / Unknown Non-blood Collection / Unknown 08/07/2024 4:17 PM EST 08/07/2024 6:34 PM EST Denia Lake MD LAB MICROB IOLOGY - GENERAL ORDERABLES Performing Organization Address [facility] de Phone Number [facility] [address] [place] [address], * PATHOLOGIST REVIEW PROTEIN ELECTROPHORESIS (06/01/2024 3:36 PM EST) Pathologist [facility] Pathologist Interpretation Fadumo Quevedo MD 06/02/2024 4:48 PM EST [facility] Blood Venous blood specimen / Unknown Venipuncture / Unknown 06/01/2024 3:36 PM EST 06/01/2024 4:41 PM EST Heladio Duke MD LAB BLOOD ORDERABLES Performing Organization Address [facility] Co de Phone Number [facility] [address] [place] [address], [place] [phone] * Vitamin B12 and folate (06/01/2024 3:36 PM EST) Pathologist [facility] Vitamin B-12 439 250 - 900 pcg/mL LAB CHEMISTRY METHOD 06/01/2024 5:57 PM EST [facility] Folate 10.6 2.8 - 17.0 ng/ml LAB CHEMISTRY METHOD 06/01/2024 5:57 PM EST [facility] Blood Venous blood specimen / Unknown Venipuncture / Unknown 06/01/2024 3:36 PM EST 06/01/2024 4:41 PM EST Heladio Duke MD LAB BLOOD ORDERABLES [facility] [address] [place] [address], * (ABNORMAL) CBC auto differential (06/01/2024 3:36 PM EST) WBC 6.5 4.8 - 10.8 K/mcL LAB HEMETOLOGY METHOD 06/01/2024 4:55 PM [facility] RBC 3.60(L) 3.80 - 4.80 M/mcL LAB HEMETOLOGY METHOD 06/01/2024 4:55 PM [facility] Hemoglobin 11.4(L) 11.5 - 16.0 g/dL LAB HEMETOLOGY METHOD 06/01/2024 4:55 PM [facility] Hematocrit 35.5 35.0 - 47.0 % LAB HEMETOLOGY METHOD 06/01/2024 4:55 PM [facility] MCV 98.9(H) 79.0 - 98.0 FL LAB HEMETOLOGY METHOD 06/01/2024 4:55 PM [facility] MCH 31.8 27.0 - 32.0 pcg LAB HEMETOLOGY METHOD 06/01/2024 4:55 PM [facility] MCHC 32.1 32.0 - 37.0 g/dL LAB HEMETOLOGY METHOD 06/01/2024 4:55 PM [facility] RDW 12.8 11.0 - 15.0 % LAB HEMETOLOGY METHOD 06/01/2024 4:55 PM [facility] Platelets 209 130 - 400 K/mcL LAB HEMETOLOGY METHOD 06/01/2024 4:55 PM [facility] MPV 9.8 7.0 - 11.0 FL LAB HEMETOLOGY METHOD 06/01/2024 4:55 PM [facility] NRBC 0.0 <1.0 % LAB HEMETOLOGY METHOD 06/01/2024 4:55 PM [facility] NRBC Absolute 0.00 <0.10 K/mcL LAB HEMETOLOGY METHOD 06/01/2024 4:55 PM [facility] Neutrophils Relative 62.3 % LAB HEMETOLOGY METHOD 06/01/2024 4:55 PM [facility] Lymphocytes Relative 25.3 % LAB HEMETOLOGY METHOD 06/01/2024 4:55 PM [facility] Monocytes Relative 8.0 % LAB HEMETOLOGY METHOD 06/01/2024 4:55 PM [facility] Eosinophils Relative 3.4 % LAB HEMETOLOGY METHOD 06/01/2024 4:55 PM [facility] Basophils Relative 0.5 % LAB HEMETOLOGY METHOD 06/01/2024 4:55 PM [facility] Immature Granulocytes Relative 0.5 % LAB HEMETOLOGY METHOD 06/01/2024 4:55 PM [facility] Neutrophils Absolute 4.07 1.50 - 7.00 K/mcL LAB HEMETOLOGY METHOD 06/01/2024 4:55 PM [facility] Lymphocytes Absolute 1.65 1.00 - 5.00 K/mcL LAB HEMETOLOGY METHOD 06/01/2024 4:55 PM [facility] Monocytes Absolute 0.52 0.20 - 1.00 K/mcL LAB HEMETOLOGY METHOD 06/01/2024 4:55 PM [facility] Eosinophils Absolute 0.22 0.00 - 0.50 K/mcL LAB HEMETOLOGY METHOD 06/01/2024 4:55 PM EST [facility] Basophils Absolute 0.03 0.00 - 0.20 K/[facility] HEMETOLOGY METHOD 06/01/2024 4:55 PM EST [facility] Immature Granulocytes Absolute 0.03 0.00 - 0.03 K/[facility] HEMETOLOGY METHOD 06/01/2024 4:55 PM EST [facility] Blood Venous blood specimen / Unknown Venipuncture / Unknown 06/01/2024 3:36 PM EST 06/01/2024 4:42 PM EST Heladio Duke MD LAB BLOOD ORDERABLES [facility] [address] [place] [address], * Erythropoietin (06/01/2024 3:36 PM EST) Erythropoietin 10.4 2.6 - 18.5 mIU/mL 06/05/2024 7:12 PM EST [facility] Comment: Test performed at [facility], [address] , [place], [place] ??[address] ? [phone] Lisy Lucas MD, PhD - Flame Cutting Machine Operator Blood Venous blood specimen / Unknown Venipuncture / Unknown 06/01/2024 3:36 PM EST 06/01/2024 4:41 PM EST Heladio Duke MD LAB BLOOD ORDERABLES [facility] [address] [place] [address] * Intrinsic factor blocking antibody (06/01/2024 3:36 PM EST) Intrinsic Factor Blocking Antibody Negative Negative 06/05/2024 7:12 PM EST [facility] Comment: Positive in 50% of persons with pernicious anemia. Very high serum levels of vitamin B12 may give false positive results for intrinsic factor antibody. ??No sample should be collected from a patient who has received vitamin B12 injection therapy within the past week. Test performed at [facility], [address] , [place], [place] ??[address] ? [phone] Lisy Lucas MD, PhD - Flame Cutting Machine Operator Blood Venous blood specimen / Unknown Venipuncture / Unknown 06/01/2024 3:36 PM EST 06/01/2024 4:41 PM EST Heladio Duke MD LAB BLOOD ORDERABLES Performing Organization Address City/[facility]/ZIP Co de Phone Number [facility] [address] [place] [address] * (ABNORMAL) Iron and TIBC (06/01/2024 3:36 PM EST) Iron 51 40 - 150 mcg/dL LAB CHEMISTRY METHOD 06/01/2024 5:57 PM EST [facility] TIBC 248(L) 250 - 450 mcg/dL LAB CHEMISTRY METHOD 06/01/2024 5:57 PM EST [facility] Iron Saturation 21 15 - 50 % LAB CHEMISTRY METHOD 06/01/2024 5:57 PM EST [facility] Blood Venous blood specimen / Unknown Venipuncture / Unknown 06/01/2024 3:36 PM EST 06/01/2024 4:41 PM EST Heladio Duke MD LAB BLOOD ORDERABLES Performing Organization Address City/[facility]/ZIP Co de Phone Number [facility] [address] [place] [address], * (ABNORMAL) Protein electrophoresis, serum (06/01/2024 3:36 PM EST) Total Protein 5.8(L) 6.0 - 8.0 g/dL LAB CHEMISTRY METHOD 4:48 PM EST [facility] Albumin, Serum 3.3 2.9 - 4.1 g/dL LAB CHEMISTRY METHOD 4 4:48 PM EST [facility] Alpha 1 Globulin (g/dL) 0.3 0.1 - 0.5 g/dL LAB CHEMISTRY METHOD 4 4:48 PM [facility] Alpha 2 Globulin (g/dL) 0.9 0.7 - 1.5 g/dL LAB CHEMISTRY METHOD 4 4:48 PM [facility] Beta (g/dL) 0.8 0.7 - 1.5 g/dL LAB CHEMISTRY METHOD 4 4:48 PM [facility] Gamma Globulin (g/dL) 0.4(L) 0.7 - 1.9 g/dL LAB CHEMISTRY METHOD 4 4:48 PM [facility] SPEP Interpretation Hypogammaglobinemia May be associated with lymphoproliferative disorder, immunoglobulin loss, or protein losing enteropathy. LAB CHEMISTRY METHOD 4 4:48 PM [facility] Blood Venous blood specimen / Unknown Venipuncture / Unknown 06/01/2024 3:36 PM EST 06/01/2024 4:41 PM EST Heladio Duke MD LAB BLOOD ORDERABLES [facility] [address] [place] [address], * (ABNORMAL) Protein, total (06/01/2024 3:36 PM EST) Total Protein 5.7(L) 6.0 - 8.0 g/dL LAB CHEMISTRY METHOD 06/01/2024 9:31 PM EST [facility] Blood Venous blood specimen / Unknown Venipuncture / Unknown 06/01/2024 3:36 PM EST 06/01/2024 4:41 PM EST Heladio Duke MD LAB BLOOD ORDERABLES Performing Organization Address City/[facility]/ZIP Co de Phone Number [facility] [address] [place] [address], [place] [phone] * Haptoglobin (06/01/2024 3:36 PM EST) [facility] Haptoglobin 103 16 - 200 mg/dL LAB CHEMISTRY METHOD 06/01/2024 5:57 PM EST [facility] Blood Venous blood specimen / Unknown Venipuncture / Unknown 06/01/2024 3:36 PM EST 06/01/2024 4:41 PM EST Heladio Duke MD LAB BLOOD ORDERABLES Performing Organization Address [facility]/ZIP Co de Phone Number [facility] [address] [place] [address], [place] [phone] * Ferritin (06/01/2024 3:36 PM EST) [facility] Ferritin 82 8 - 252 ng/mL LAB CHEMISTRY METHOD 06/01/2024 5:57 PM EST [facility] Blood Venous blood specimen / Unknown Venipuncture / Unknown 06/01/2024 3:36 PM EST 06/01/2024 4:41 PM EST Heladio Duke MD LAB BLOOD ORDERABLES Performing Organization Address City/[facility]/ZIP Co de Phone Number [facility] [address] [place] [address], [place] [phone] * Annual BMP Blood Test (05/03/2024) [facility] Annual BMP Blood Test Abstracted Historical Provider [facility]LAINE E * (ABNORMAL) Lipid panel (01/03/2024) [facility] LDL/HDL Ratio 4 0 - 4 Triglycerides 151(A) 0 - 150 mg/dL Cholesterol 227(A) 0 - 200 mg/dL HDL 65 40 mg/dL LDL Cholesterol 132(A) 0 - 100 mg/dL Blood Venous blood specimen / Unknown Historical Provider LAB BLOOD ORDERAB LES * SCR MAMMO BI INCL CAD (04/27/2020 11:20 AM EDT) Anatomical Region Laterality Modality Radiographic Karo ging 12/22/2018 3:14 PM EDT Narrative 04/29/2020 2:10 PM EDT This is a summary report. The complete report is available in the patient's medical record. If you cannot access the medical record, please contact the sending organization for a detailed fax or copy. Full field digital screening mammography, reviewed with CAD and compared to previous mammograms dating back to 02/01/2015 with most recent of 10/04/2017. The breast tissue is heterogeneously dense, limiting sensitivity. No suspicious mass, architectural distortion or suspicious calcifications are identified. IMPRESSION: : Dense breast tissue, limiting the sensitivity of mammography. No mammographic evidence of malignancy. BIRADS 1-Negative; N. 5 year breast cancer risk assessment 1.7 % Lifetime breast cancer risk assessment 9.1 % Breast cancer risk category Low (<15%) Procedure Note Linda Patel MD - 07/07/2022 This is a summary report. The complete report is available in thepatient's medical record. If you cannot access the medical record, pleasecontact the sending organization for a detailed fax or copy. Full field digital screening mammography, reviewed with CAD and comparedto previous mammograms dating back to 02/01/2015 with most recent of10/04/2017. The breast tissue is heterogeneously dense, limitingsensitivity. No suspicious mass, architectural distortion or suspiciouscalcifications are identified. IMPRESSION: : Dense breast tissue, limiting the sensitivity of mammography. Nomammographic evidence of malignancy. BIRADS 1-Negative; N. 5 year breast cancer risk assessment 1.7 % Lifetime breast cancer risk assessment 9.1 % Breast cancer risk category Low (<15%) Elana Cope MD IMG XR PROCE DURES * Cervical Cancer Screening: HPV (11/17/2018) Cervical Cancer Screening: HPV Negative, Abstracted Historical Provider MD ROSA Cuevas * Hepatitis C Screening (11/08/2013) Pathologist [facility] Hepatitis C Screening Abstracted Historical Provider MD ROSA Cuevas from Last 3 Months or Most Recently Relevant to Health Maintenance Care Teams Conveyor Feeder Relationship Specialty Start Date End Date Denia Lake MD [address] [place] [id number] PCP - General Internal Medicine 05/31/24
== END 2024-08-18 11:45 | disposition home or self-care (01) ==
PROVIDERS: PCP Internal Medicine; Visit Provider Nurse Practitioner Family
DX: G57.02 Lesion of sciatic nerve, left lower limb (principal); M25.552 Pain in left hip; G89.29 Other chronic pain; M96.1 Postlaminectomy syndrome, not elsewhere classified; M70.62 Trochanteric bursitis, left hip; M16.12 Unilateral primary osteoarthritis, left hip; G35 Multiple sclerosis
CPT/HCPCS: 99214; G2211

== ENCOUNTER → 2024-08-18 11:13 | Outpatient (BNVA) | payer OTHER, SELFPAY | PROVIDERS: PCP Internal Medicine; Visit Provider Nurse Practitioner Family | DX: G57.02 Lesion of sciatic nerve, left lower limb (principal); M25.552 Pain in left hip; M96.1 Postlaminectomy syndrome, not elsewhere classified; M70.62 Trochanteric bursitis, left hip; M16.12 Unilateral primary osteoarthritis, left hip; G35 Multiple sclerosis; G89.29 Other chronic pain | CPT/HCPCS: 99212 ==

== ENCOUNTER 2024-10-24 06:14 | Outpatient (REF) | payer OTHER, SELFPAY ==
--- OUTSIDE RECORDS SUMMARY | 2024-10-24 06:17 | XMS_ITS | Clinical Summary ---
Author Organization [facility] Address [address] [place] [address] Care Team Providers Care Eyeglass Fitter Name Role Phone Denia Lake MD Primary [...] age to complete this topic Care Teams Eyeglass Fitter Relationship Specialty Start Date End Date Denia Lake MD PCP - General Internal Medicine 11/09/23
--- OUTSIDE RECORDS SUMMARY | 2024-10-24 06:17 | XMS_ITS | Encounter Summary ---
Author Organization [facility] Address [address] [place] [address] Care Team Providers Care First Aid Director Name Role Phone Denia Lake MD Primary Care Prov ider Reason for Visit * Reason Onset Date Comments vna 10/19/2024 Encounter Details Date Type Department Care Team (Late st Contact Info) Description 10/19/2024 Telephone Adult Medicine - [place] [address] [place] [phone] Denia Lake MD [address] [place] [address] vna Social History Tobacco Use Types Packs/Day Years Used Date Smoking Tobacco: Every Day Cigarettes 0.2 47.3 Started: 07/19/1977 Smokeless Tobacco: Never Alcohol Use Standard Drinks/Week Comments Not Currently 0 (1 standard drink = 0.6 oz pur e alcohol) Comments No Sex and Gender Information Value Date Recorded Sex Assigned at Not on file Legal Sex Female 1:42 PM EST Gender Identity Not on file Sexual Orientation Not on file documented as of this encounter Progress Notes * Dia Gonzales RN - 10/19/2024 1:11 PM EDT Faxed to [facility] [place] Office [address] [place] [place], [address] Office: Toll Free: * Chani Toledo - 10/19/2024 12:13 PM EDT [facility] CALL Which [facility] office is calling? [facility] Full name of caller: Tish The caller is intake Is the caller at the patients home?: no Reason for call: cannot take this client at this time Does caller need an urgent call back? no Was CONTACT Telephone # obtained above?: yes Fax #: n/a documented in this encounter Plan of Treatment Upcoming Encounters Date Type Department Care Team (Late st Contact Info) Description 11/13/2024 9:30 AM EDT Telemedicine [facility] [address] [place] [phone] Latoya Larry PA [address] [place] [address] 11/28/2024 8:45 AM EDT Office Visit Orthopedic Surgery - [place] [address] [phone] Hamilton Wang DPM [address] [address] documented as of this encounter Visit Diagnoses Not on filedocumented in this encounter Care Teams First Aid Director Relationship Specialty Start Date End Date Denia Lake MD [address] [place] [address] PCP - General Internal Medicine 05/31/24 documented as of this encounter
--- OUTSIDE RECORDS SUMMARY | 2024-10-24 06:17 | XMS_ITS | Encounter Summary ---
Author Organization [facility] Address [address] [place] [address] Care Team Providers Care Hat Forming Machine Operator Name Role Phone Denia Lake MD Primary Care Prov ider Reason for Visit * Reason Onset Date Comments DME Supplies 10/19/2024 Encounter Details Date Type Department Care Team (Late st Contact Info) Description 10/19/2024 Telephone Adult Medicine - [place] [address] [place] [phone] Denia Lake MD [address] [place] [address] DME Supplies Social History Tobacco Use Types Packs/Day Years [...] as of this encounter Progress Notes * Travis Chiu - 10/19/2024 10:30 AM EDT Pt needs a new script for: Sandy Lombardi Briefs: Size XL : [facility] documented in this encounter Plan of Treatment Upcoming Encounters Date Type Department Care Team (Late st Contact Info) Description 11/13/2024 9:30 AM EDT Telemedicine [facility] [place] [address] [place] [phone] Latoya Larry PA [address] [facility] [address] [place] [address] 11/28/2024 8:45 AM EDT Office Visit Orthopedic Surgery - [place] [address] [facility] [address] [place] [phone] Hamilton Wang DPM 175 [facility] [address] [place] [address] documented as of this encounter Visit Diagnoses Not on filedocumented in this encounter Care Teams Hat Forming Machine Operator Relationship Specialty Start Date End Date Denia Lake MD [address] [place] [address] PCP - General Internal Medicine 05/31/24 documented as of this encounter
--- OUTSIDE RECORDS SUMMARY | 2024-10-24 06:17 | XMS_ITS | Encounter Summary ---
Author Organization [facility] Address [address] [place] [address] Care Team Providers Care Urologist Name Role Phone Denia Lake MD Primary Care Prov ider Encounter Details Date Type Department Care Team (Late st Contact Info) Description 05/23/2024 Nurse Triage Adult Medicine - [place] [address] [place] [phone] Denia Lake MD [address] [place] [address] Social History Tobacco Use Types Packs/Day Years Used Date Smoking Tobacco: Every Day Cigarettes 0.2 47.3 Started: 07/19/1977 Smokeless Tobacco: Never Alcohol Use Standard Drinks/Week Comments Not Currently 0 (1 standard drink = 0.6 oz pur e alcohol) Comments Unknown Sex and Gender Information Value [...] Info) Description 11/13/2024 9:30 AM EDT Telemedicine [facility] [place] [address] [place] [phone] Latoya Larry PA [address] [place] [address] 11/28/2024 8:45 AM EDT Office Visit Orthopedic Surgery - [place] [address] [facility] [address] [place] [phone] Hamilton Wang DPM [address] [facility] [address] [place] [address] documented as of this encounter Visit Diagnoses Diagnosis Urinary tract infection without hematuria, site unspecified- Primary documented in this encounter Care Teams Urologist Relationship Specialty Start Date End Date Denia Lake MD [address] [place] [address] PCP - General Internal Medicine 05/31/24 documented as of this encounter
--- OUTSIDE RECORDS SUMMARY | 2024-10-24 06:17 | XMS_ITS | Data Portability ---
Author Organization [facility] [employer] Address [address] [place] [address] Care Team Providers Care Assistance Coordinator Name Role Phone HIM CCA OTHER PERNELL TARIQ Primary Care Provider Assessment Encounter Date Assessment Date Assessment LastModified by Organization Details LastModified Time 04/26/2024 04/26/2024 As noted, we were called to see this patient regarding concerns of UTI. Evaluation in the field was performed by my general store manager colleague, as noted above, I provided real-time [...] any acute worsening or change in symptoms. [email or web address] Not available 04/26/2024 14:45:12 04/27/2024 04/27/2024 64 yo F seen yesterday with UTI sxs and started on levaquin 750 daily (now s/p 2 doses), calls w ongoing urinary symptoms and sxs of vaginal yeast infection. VS wnl. Prelim UCx with GNRs. Discussed that patient should continue to take levaquin to completion. I have also sent diflucan rx for yeast infection. [email or web address] Not available 04/27/2024 21:15:26 07/26/2024 07/26/2024 I provided real -time medical direction via phone for this encounter and was available for additional phone-based assistance as needed. I have reviewed and agree with the Assessment and Plan as documented by the Healthcare Economics Consultant. Patient given the opportunity to ask questions. Our service contacted for an assessment of: Urinary symptoms As per above, patient with approximately 24 hours of dysuria, frequency. No history of frequent urinary tract infections. Denies fever, chills, abdominal pain, back pain, flank pain. Per general store manager on the scene, Vital signs are stable [...] None recorded. Lab culture, urine 2023 024 ISAURO [facility] (Centralized Electronic Ordering - All Locations), Patient Can Go To The Location Of Their Choice, [id number] 20:06:38 urinalysis, dipstick 2023 024 rsullivan 84 [facility], [address] [place] [address], [phone] 14:40:00 Referral None recorded. Procedures None recorded. Surgeries None recorded. Imaging None recorded. Medication Orders levofloxaci n 500 mg tablet 2024 025 [facility]armacy #[id number], [address] [place] [address], [address], 5 21:35:43 levofloxaci n 500 mg tablet [address]/Pharmacy #0859, [address] [place] [address], [address], 5 21:35:41 Diflucan 150 mg tablet 2023 024 [facility]/Pharmacy #0859, [address] [place] [address], [address], 19:43:38 levofloxaci n 750 mg tablet [address] [facility]/Pharmacy #0859, [address] [place] [address], [address], 14:41:18 levofloxaci n 750 mg tablet [address] [facility]/Pharmacy #0859, [address] [place] [address], [address], 14:41:37 Patient TargetsNo targets recorded. Patient InstructionsNo instructions recorded. Reason for Referral None Reported. Results Created Date Observation Date Name Description Value Unit Range Abnormal Flag Note LastModifiedBy Organization Detail LastModifiedTime 04/26/2004/28/2024 URINE CULTU RE,CO MPREH ENSIV E urine culture,comp rehensive Final report abnormal Not Available [facility] ([facility]) [address] [facility], [place], [address], 04/28/2024 10:06:27 04/26/2004/28/2024 URINE CULTU RE,CO MPREH ENSIV E result [...] Prote us mirab ilis. Not Available [facility] ([facility]) [address] [facility], [place], [address], 04/28/2024 10:06:27 04/26/2004/28/2024 URINE CULTU RE,CO MPREH ENSIV E antimicrobia [...] thopr im/Gustafson lfa S Not Available [facility] ([facility]) [address] [facility], [place], [address], 04/28/2024 10:06:27 Result Notes None recorded. Medical Equipment None Reported. Allergies Allergen ID Allergen Name Allergen Category Reaction Reaction Severity Criticality Documentation Date Start Date Code Code System Note Provider Name and Address Organization Details Recorded Time 6545 Substance with sulfonami de structure and antibacte rial mechanism of action (substanc e) medicatio n Not available Not available Not available 05/01/2024 53893 8003 SNOMED Sylvie lassiter [place] [facility] 18:52:04 6546 Macrobid medicatio n Not available Not available Not available 05/01/2024 43976 1 RxNorm SAUD [facility] 18:52:16 Medications Name Sig Start Date Stop [...] % 98 % 58 /min 16 /min 08286.7 6 g 100.7 [degF] 126 mm[Hg] 76 mm[Hg] Not Available [facility] - production 4 14:36:11 Date Recorded Heart rate Body weight Respiratory rate Oxygen saturation Oxygen saturation in Arterial blood by Pulse oximetry Body temperature Systolic blood pressure Diastolic blood pressure Provider Name and Address Organization Details Last Updated DateTime 4 56 /min 12288.1 12 g 16 /min 98 % 98 % 97.8 [degF] 106 mm[Hg] 60 mm[Hg] Not Available [facility] [employer] 4 19:31:36 Date Recorded Heart rate Body [...] SNOMED-CT Code Diagnosis ICD10 Code Diagnosis Note [id number] Rolando Valdivia MD [facility] [address] [place] [phone] 04/26/2024 14:35:59 04/27/2024 14:53:21 Acute urinary tract infection 076626191 N39.0 [id number] IVAN CARBALLO MD [facility] [address] [place] [phone] 04/27/2024 19:31:34 04/27/2024 22:32:44 Candidiasis of vagina 58055459 B37.31 [id number] Heather Fall MD [facility] [address] [place] [phone] 07/26/2024 17:49:57 07/26/2024 22:12:25 Urinary symptoms 104021245 R39.9 Health Concerns Section Related Observation LastModified by Organization Detai ls LastModified Time None Recorded Concern Status LastModified by Organization Details LastModified Time None Recorded Advance Directives Directive None Recorded Payers Encounter Date Sequence Insurance Name Policy Number Policy Jones Covered Member ID Jones Member ID Guarantor Name 04/26/2024 1 [facility] [employer] - DOS ON OR AFTER 2022 - DUAL ELIGIBLE - FDC OPTIONS AND ONE CARE (MEDICARE REPLACEMENT/ADV ANTAGE - HMO) Maria Adams [id number] Maria Adams 04/27/2024 1 [facility] [employer] - DOS ON OR AFTER 2022 - DUAL ELIGIBLE - FDC OPTIONS AND ONE CARE (MEDICARE REPLACEMENT/ADV ANTAGE - HMO) Maria Adams [id number] Maria Adams 07/26/2024 1 [facility] [employer] - DOS ON OR AFTER 2022 - DUAL ELIGIBLE - FDC OPTIONS AND ONE CARE (MEDICARE REPLACEMENT/ADV ANTAGE - HMO) Maria Adams [id number] Maria Adams Notes Date Note Type Note [...] Reports low back pain which is baseline. Coalgood feverish yesterday. Temp 97.2. Healthcare Economics Consultant Organization Information for Gee Guajardo [employer] Business Legal Name: [facility] Address: [address] [place] [address], Internet Sourcer: Bokoer Adame MD [facility] No.: [id number] Healthcare Economics Consultant POC Test Results from Gee Guajardo Urine Dipstick (14:27:28) Urine leukocytes: 500+++ TANESHA Urine nitrites: + NIT Urine urobilinogen: NR Urine protein: 30(0.3) PRO Urine pH: 5 pH Urine blood: +++ BLO Urine specific gravity: 1.015 SG Urine ketones: NR Urine bilirubin: NR Urine glucose: NR .................... .................... .................... .................... .................... .................... .................... . Healthcare Economics Consultant Note From Casandra Gee: Pt co painful urination, Odor, Cloudy urine, [...] tenderness on palpation. Urine culture drawn up. [facility] contacted and Pt given first does of [...] .................... . Disposition: Fulfilled Rolando Valdivia MD [address] [place] [address],[address], [place], [phone], [employer] 04/26/2024 15:21:10 04/27/2024 text/html CRC Nurse Triage [...] .................... .................... .................... .................... .................... .................... . Healthcare Economics Consultant Note From Gee Guajardo: Pt co continued painful urination. Pt seen [...] fever, NVD, abdominal pain. Baseline vitals assessed, Afebrile.[facility] contacted and x for diflucan. Pt sts daughter will order picker rx. Pt expressed gratitude for re visit. [facility] contacted and advised will continue with current antibiotic rx until completion. Pt agreeable. Pt education on signs indicating the ER. Pt advised to follow up with pcp if symptoms continue. .................... .................... .................... .................... .................... .................... .................... . Disposition: Fulfilled IVAN CARBALLO MD [address] [facility],[address], [place], [address], [facility] 04/27/2024 21:15:33 07/26/2024 text/html CRC Nurse Triage [...] Incontinence, Multiple Sclerosis PMH Reviewed at 07/26/2024 Allergies Reviewed at 07/26/2024: Comments: Set Up Inspector verified the patient's name//address and phone number. [...] .................... .................... .................... .................... .................... .................... . Healthcare Economics Consultant Note From Richard Emanuel: Was dispatched for [...] urine was attempted but with no success. [facility] was contacted, [facility] is willing to treat without a possible urine, [facility] ordered 500 MG of Levofloxacin and perscribed it to the PT to be picked up at her local pharmacy. crew cleared .................... .................... .................... .................... .................... .................... .................... . [facility] Consulted: Heather Fall .................... .................... .................... .................... .................... .................... .................... . Disposition: Fulfilled Heather Fall MD [address] [facility],[address] [facility], [place], [address], [employer]E RASHID 07/26/2024 21:36:02 OBGyn Episode No OBEpisode recorded.
--- OUTSIDE RECORDS SUMMARY | 2024-10-24 06:18 | XMS_ITS | Encounter Summary ---
Author Organization [facility] Address [address] [place] [address] Care Team Providers Care Training And Development Head Name Role Phone Denia Lake MD Primary Care Prov ider Encounter Details Date Type Department Care Team ([facility] st Contact Info) Description 10/04/2024 Telephone Adult Medicine - [place] [address] [place] [phone] Denia Lake MD [address] [place] [address] Social History Tobacco Use Types Packs/Day Years [...] as of this encounter Progress Notes * Abbi Ponce - 10/04/2024 2:46 PM EDT Donte ended up doing the order but the result will go back to him and he is going to be out the nextcouple of days and wants to make sure the result goes to Mac Powell or Rae * Abbi Ponce - 10/04/2024 2:38 PM EDT Pts daughter is here to drop off a urine sample but there is no order in the system - pt has frequent UTI documented in this encounter Plan of Treatment Upcoming Encounters Date Type Department Care Team (Late st Contact Info) Description 11/13/2024 9:30 AM EDT Telemedicine [facility] [place] [address] [place] [phone] Latoya Larry PA [address] [facility] [address] [place] [address] 11/28/2024 8:45 AM EDT Office Visit Orthopedic Surgery - [place] [address] [facility] [address] [place] [phone] Hamilton Wang DPM [address] [facility] [address] [place] [address] documented as of this encounter Visit Diagnoses Not on filedocumented in this encounter Care Teams Training And Development Head Relationship Specialty Start Date End Date Denia Lake MD [address] [place] [phone] PCP - General Internal Medicine 05/31/24 documented as of this encounter
--- OUTSIDE RECORDS SUMMARY | 2024-10-24 06:18 | XMS_ITS | Clinical Summary ---
Author Organization [facility] Address [address] [phone] Phone Care Team Providers Care Classified Ad Taker Name Role Phone Denia Lake MD Primary [...] Overview (07/01/2024): [facility] ER on 10/15/21 Other shelter current drug therapy 05/09/2021 Tobacco use 05/09/2021 Overview (07/01/2024): Coverage for Chantix denied Osteopenia 04/13/2016 Vitamin D deficiency 07/05/2015 Leukopenia 10/19/2014 Overview (07/01/2024): Noted at [place] 10/23/14 - [facility] following Splenomegaly 11/08/2012 Lumbar post-laminectomy syndrome 06/24/2012 Overview (07/01/2024): Removal of the painful lumbar segmental hardware L4-S1 by Dr. Collazo-01/23/2021 Multiple sclerosis 04/07/2006 Overview (07/01/2024): Dr. Garcia, Dr. Carlos Per [facility], the patient is disabled and requires 30 hours of ADULT LIVE IN CAREGIVER care per week Tysabri, Baclofen pump- greatly benefits 10/27- [facility] - PT, OT Group Adult Daycare/[facility] (caregiver Topher Adams, backup Evangelina AdamsSy) - 06/29 - left [facility] 07/31 - per pt request, returning from Tysabri to Betaseron and IV Solumedrol 01/28 - per Phong, does not qualify for ADULT LIVE IN CAREGIVER as does not require hands-on with 2 ADLs; her son's girlfriend will be foster caregiver 03/31 - Rebekah 09/29-group adult foster care 11/29-physiatry referral 12/30-difficulties with ADLs-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
--- OUTSIDE RECORDS SUMMARY | 2024-10-24 06:18 | XMS_ITS | Clinical Summary ---
Author Organization [facility] Address [address] [place] [address] Phone Care Team Providers Care Fitness Specialist Name Role Phone Denia Lake MD Primary Care Prov ider Allergies Active Allergy Reactions Criticality Noted Date Comments Gadopentetate Dimeglumine Nausea And Vomiting Low 0 08/13/2014 Iodinated Contrast Media 10/26/2023 Other Reaction(s): Rash/Dermatitis Nitrofurantoin Swelling 03/27/2009 Sulfamethoxazole-Trimetho prim Hives 03/07/2009 Medications disposable gloves (Nitrile Exam Gloves) misc 5 Units by Does not apply route 4 times daily. 10/27/19 24 Active medical supply, miscellaneous (MISCELLANEOUS MEDICAL SUPPLY MISC) GAIT/TRANSFER BELT 1 Units by Does not apply route daily. 01/04/20 24 Active miscellaneous medical supply misc Bed Wedge 1 Each by Does not apply route once for 1 dose. 11/22/19 22 Active miscellaneous medical supply misc CAREX ULTRA GRABBER 32 1 Units by Does not apply route daily. 09/22/19 24 Active walker (Ultra-Light Rollator) misc 1 Units by Does not apply route daily. 09/22/19 24 Active syringe with needle 3 mL 23 x 1 syringe 1 Syringe by Does not apply route every 30 days. ADMIN B12 Injection Q month 05/04/20 24 Active needle, disp, 25 gauge 25 gauge x 1 1/2 needle Use to give Vit B 12 injection 05/04/20 Active albuterol sulfate (ProAir RespiClick) 90 mcg/actuation aerosol powdr breath activated Inhale 2 Puffs into the lungs every 4 hours. Active ascorbic acid, vitamin C, 500 mg capsule Take by mouth. Acti ve cholecalciferol (VITAMIN D-3) 50 mcg (2,000 unit) capsule Take by mouth daily. Active EPINEPHrine (EpiPen 2-Nimesh) 0.3 mg/0.3 mL injection Inject 0.3 mg as directed as needed. Active famotidine (PEPCID) 20 mg tablet Take 1 Tablet by mouth 2 times daily. 05/04/20 24 Active tiZANidine (ZANAFLEX) 2 mg tablet 01/31/20 23 Active glatiramer (COPAXONE) 40 mg/mL injection Inject 1 mL (40 mg total) under the skin 3 (three) times a week. 12 each 06/09/20 24 Active ferrous sulfate 325 mg (65 mg elemental iron) tablet TAKE 1 TABLET BY MOUTH EVERY DAY 30 tablet 5 06/23/20 24 Active incontinence pad, liner, disp padIndications:M ultiple sclerosis (CMS/HCC),Neurog enic bladder To use Bladder pads with 11 refills to use for life. 240 each 06/28/20 24 Active levothyroxine (SYNTHROID, LEVOTHROID) 25 mcg tablet TAKE 1 TABLET BY MOUTH EVERY DAY 90 tablet 1 07/27/19 25 Active ibuprofen (ADVIL,MOTRIN) 600 mg tabletIndication s:Postlaminectom y syndrome, not elsewhere classified TAKE 1 TABLET BY MOUTH EVERY 8 HOURS NEEDED FOR PAIN 90 tablet 5 08/24/19 25 Active acetaminophen (TYLENOL) 325 mg tablet Take 1 tablet (325 mg total) by mouth every 6 (six) hours if needed for moderate pain. for pain 90 tablet 1 09/11/19 25 025 Active Cuvitru 10 gram/50 mL (20 %) solution Active LORazepam (ATIVAN) 1 mg tablet Take 1-2 tablets (1-2 mg total) by mouth See administration instructions. Take 30 minutes prior to procedure. 10 tablet 10/11/19 25 025 Active LORazepam (ATIVAN) 1 mg tablet Take 1-2 tablets (1-2 mg total) by mouth See administration instructions. Take 30 minutes prior to procedure. 4 tablet 08/22/19 25 025 Discontin ued(Reord er) fluconazole (DIFLUCAN) 150 mg tabletIndication s:Urinary tract infection with hematuria, site unspecified Take 1 tablet (150 mg total) by mouth 1 (one) time each day for 14 days. 14 tablet 10/10/19 25 025 Additional Information Patient not taking.Reported on 10/10/2024 Hospital, Clinic, or Other Facility Administered Medication [...] on 10/15/21 DDD (degenerative disc disease), lumbar 07/09/20 21 Hyperlipidemia 11/02/2019 Overview (05/29/2024): Last Assessment [...] The patient's daughter will send me a [id number] message in a couple weeks and let [...] Overview (05/29/2024): Referred to Dr. Posadas by [facility] 10/31 - oxybutynin Leukopenia 10/19/2014 Overview (05/29/2024): Noted at [facility] 10/23/14 - [facility] following Splenomegaly 11/08/2012 Dyspnea 06/28/2012 Overview [...] 01/17 Overview (05/29/2024): 01/27 - Referred to soft tile setter by Dr. 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 Garcia- indomethacin Falls frequently 06/06/2010 Overview (05/29/2024): Walks with [place] crutch 05/01 - using a wheeled walker Constipation 07/03/2008 Overview (05/29/2024): Dr. Dwyer- likely secondary to MS & Baclofen- increase Miralax to BID & add Amitiza; water intake encouraged Paralysis spastic 05/22/2008 Overview (05/29/2024): Botox injections Dr. Meier (PM&R)- Baclofen pump 09/28 - patient expresses interest in discontinuing Depression 07/16/2006 Multiple sclerosis 04/07/2006 Overview (05/29/2024): Dr. Garcia, Dr. Carlos Per [facility], the patient is disabled and requires 30 hours of WATCH ENGINE OPERATOR care per week Tysabri, Baclofen pump- greatly benefits 10/27- [facility] - PT, OT Group Adult Daycare/[facility]ost[facility] from [facility] (caregiver Topher Clegurjit, [facility] - 06/[facility] - left [facility] 07/31 - per pt request, returning from Tysabri to Betaseron and IV Solumedrol 01/28 - per Phong, does not qualify for WATCH ENGINE OPERATOR as does not require hands-on with 2 ADLs; her son's girlfriend will be foster caregiver 03/31 - Rebekah 09/29-group adult foster care 11/29-physiatry referral 12/30-difficulties with ADLs-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, bathing without assistance, dressing 05/02 - pending repeat MRI brain; may be a Provigil candidate 10/01 - hospital admissions for flares; for Neuro, pending repeat MRI brain; possible Provigil for fatigue Encounters Date Type Department Care Team Description 10/19/2024 Telephone Adult Medicine [address] [phone] Denia Greer MD vna 10/19/2024 Telephone Adult [address] [phone] Denia Greer MD DME Supplies 10/11/2024 10:30 AM EDT Telemedicine [facility] [place] [address] [place] [address] Latoya Larry PA Multiple sclerosis (CMS/HCC) (Primary Dx) 10/11/2024 Telephone Adult [address] [phone] Caroline Le MA 10/10/2024 9:00 AM EDT Office Visit Adult [address] [phone] Denia Greer MD Multiple sclerosis (CMS/HCC) (Primary Dx); Dilated cardiomyopathy (CMS/HCC); Falls frequently; Hypothyroidism, unspecified type 10/10/2024 Telephone Adult [address] [phone] Denia Greer MD Fitting for DME 10/09/2024 Telephone Adult [address] [phone] Monique Best MA Results 10/04/2024 Telephone Adult [facility] [address] [place], [place] [phone] Denia Greer MD 09/22/2024 Telephone Adult [facility] [address] [place], [place] [phone] Caroline Le MA 09/20/2024 Telephone Adult [facility] [address] [place], [place] [phone] Denia Greer MD Fitting for DME 09/11/2024 10:00 AM EST Consult Adult [address] [phone] Denia Greer MD Preop examination (Primary Dx); Age-related cataract of both eyes, unspecified age-related cataract type 09/11/2024 8:00 AM EST Ancillary Procedure [facility] - [facility] [address] [facility] [address] [place] [phone] Dilated cardiomyopathy (CMS/HCC); Essential hypertension 09/11/2024 Telephone Adult [facility] [address] [place], [place] [phone] Caroline Le MA Fitting for DME 08/31/2024 Telephone Adult [address] [phone] Denia Greer MD Order (For incontinence supplies); Fitting for DME 08/25/2024 1:00 PM EST Telemedicine [facility] [place] [facility] [address] [facility] [address] [place] [phone] Latoya Larry PA Multiple sclerosis (CMS/HCC) (Primary Dx) 08/22/2024 2:24 PM EST - 08/22/2024 11:59 PM EST Hospital Encounter Xray - [facility] [address] [place], [place] [phone] Chronic left shoulder pain Discharge Disposition: Home or Self Care 08/22/2024 1:30 PM EST Office Visit Adult [facility] [address] [place] [phone] Denia Greer MD Multiple sclerosis ([facility]) (Primary Dx); Depression, unspecified depression type; Failed back syndrome of lumbar spine; Essential hypertension; Hair loss; Chronic left shoulder pain 08/18/2024 Telephone Adult [facility] [address] [place] [phone] Caroline Le MA Fitting for DME ([facility]/for Seat Lift recliner) 08/16/2024 Telephone Adult [facility] [address] [place] [phone] Denia Greer MD Fitting for DME 08/15/2024 Telephone Adult [facility] [address] [place] [phone] Denia Greer MD Shoulder Pain 08/04/2024 Telephone Adult [facility] [address] [place] [phone] Denia Greer MD Faxed Order [id number] from Last 3 Months Immunizations Name Administration [...] Site/Laterality Comments OTHER SURGICAL HISTORY 11/30/2008 PROCEDURE: MS IMPLTJ REVJ/RPSG ITHCL/EDRL CATH JOURNEYMAN MOLDER W/O RAMOS; COMMENT: Dr. Crane - Baclofen pump OTHER SURGICAL HISTORY 08/13/2010 PROCEDURE: MS ARTHRS KNE SURG W/MENISCECTOMY MED/LAT W/SHVG; COMMENT: Dr. Hope Linton OTHER SURGICAL HISTORY 10/13/2010 PROCEDURE: MS INSERTION PICC W/O IMG GDN 5 YR/>; COMMENT: R DILLAN COLONOSCOPY 2004 PROCEDURE: HISTORICAL COLONOSCOPY; COMMENT: Jen; ?microscopic colitis HERNIA REPAIR 08/22/2015 PROCEDURE: MS REPAIR FIRST ABDOMINAL WALL HERNIA; COMMENT: Dr. [...] add Amitiza; water intake encouraged Multiple sclerosis ([facility]/HCC) 04/07/2006 DX: Multiple sclerosis ([facility]); COMMENT: Dr. Garcia, Dr. Carlos Per [facility], the patient is disabled and requires 30 hours of WATCH ENGINE OPERATOR care per week Tysabri, Baclofen pump- greatly benefits 10/27- [facility] home care - PT, OT Group Adult Daycare/Fostercare from [facility] (caregiver Topher Adams, backup Evangelina AdamsCharline) - 06/29 - left [facility]FC 07/31 - per pt request, return* Dyspnea 06/28/2012 DX:Dyspnea; COMM ENT: Dr. Susan Guerra - likely secondary to MS Splenomegaly 11/08/2012 DX:Splenomegaly Osteopenia 04/13/2016 DX:Osteopenia Failed back syndrome of lumbar spine 06/24/2012 DX:Failed back syndrome of lumbar spine; COMMENT: Dr. Crane, Dr. Mata 06/29 - [facility] to [facility] 09/30 - L5-S1, L4-L5 anterior radical discectomy, arthodesis; L4-L5 interbody cage placement; [place] for inpatient rehab 12/31 - [facility] 06/02 - bilateral SI joint and ligament injections Acquired hammer toe 06/03/2007 DX:Acquired hammer toe; COMMENT: Dr. Valero, Dr. Aguero 10/01 - hammertoe boot and splint; if fails conservative treatment, may need hallux IP fusion and 2nd hammertoe repair Essential hypertension, benign 01/29/2016 D X:Essential hypertension, benign Falls frequently 06/06/2010 DX:Falls freque ntly; COMMENT: Walks with [place] crutch 05/01 - using a wheeled walker Hypothyroidism, acquired 05/15/2015 DX:Hypo thyroidism, acquired Leukopenia 10/19/2014 DX:Leukopenia; C OMMENT: Noted at [place] 10/23/14 - [facility] following Nasal fracture 02/26/2015 DX:Nasal fractur e; COMMENT: Dr. Guillory 03/02 - consider of septorhinoplasty at some point Neurogenic bladder 10/23/2014 DX:Neurogenic bladder; COMMENT: Referred to Dr. 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 Garcia- indomethacin Periodic limb movement disorder 05/13/2012 DX:Periodic limb movement disorder; COMMENT: 04/29 - sleep study; advised to check ferritin level and consider dopamine agonist trial Radiologic findings of lung field, abnormal 02/09/2012 DX:Radiologic findings of liss ng field, abnormal; COMMENT: 01/27 - Referred to soft tile setter by Dr. Jarrett for findings consistent with asbestosis on chest CT Paralysis spastic (CMS/HCC) 05/22/2008 DX:P aralysis spastic ([facility]); COMMENT: Botox injections Dr. Meier (PM&R)- Baclofen [...] 0.2 47.3 Started: 07/19/1977 Smokeless Tobacco: Never Tobacco Cessation:Ready [...] on file Sexual Orientation Not on file Obstetrics History Last Filed Vital Signs Vital Sign Reading Time Taken Comments Blood Pressure 138/80 10/10/2024 9:00 AM EDT Pulse 61 10/10/2024 9:00 AM EDT Temperature 36.4 ??C (97.6 ??F) 10/10/2024 9:00 AM ED T Respiratory Rate - - Oxygen Saturation 100% 06/01/2024 2:57 PM EST Inhaled Oxygen Concentration - - Weight 77.1 kg (170 lb) 10/10/2024 9:00 AM EDT v erbal Height 175.3 cm (5' 9 ) 09/11/2024 9:14 AM EST Body Mass Index 25.1 09/11/2024 9:14 AM EST Plan of Treatment Upcoming Encounters Date Type Department Care Team (Late st Contact Info) Description 11/13/2024 9:30 AM EDT Telemedicine [facility] [place] [facility] [address] [place] [phone] Latoya Larry PA [address] [place] [address] 11/28/2024 8:45 AM EDT Office Visit Orthopedic Surgery - [facility] [address] [place] [phone] Hamilton Wang DPM [address] [place] [address] Health Maintenance Due Date Last Done Comments Hepatitis A Vaccines (1 of 2 - Risk 2-dose series) 02/26/1980 Pneumococcal Vaccine: 50+ Years (1 of 2 - PCV) 02/26/1980 Pneumococcal Vaccine: Pediatrics (0 to 5 Years) and At-Risk Patients (6 to 64 Years) (1 of 2 - PCV) 02/26/1980 Zoster Vaccines (2 of 2) 02/28/2022 [...] or Tdap) 03/02/2029 03/02/2019, 02/08/2009 RSV Immunization Adult Patients (1 - 1-dose 75+ series) 02/26/2036 Hepatitis [...] patient's age to complete this topic Meningococcal B Vaccine Aged Out No l onger eligible based on patient's age to complete this topic RSV Immunization Patients Under 20 months Aged Out No longer eligible based on patient's age to complete this topic Procedures Procedure Name Priority Date/Time Associated Diagnosis Comments SANTOS URINE CULTURE TUBE Routine 10/05/19 3:02 PM EDT Recurrent UTI URINALYSIS WITH REFLEX MICROSCOPIC AND CULTURE Routine 10/04/2024 3:02 PM EDT Recurrent UTI URINALYSIS WITH REFLEX MICROSCOPIC AND CULTURE Routine 10/04/2024 3:02 PM EDT Recurrent UTI CULTURE URINE Routine 10/04/2024 3:02 PM EDT Recurrent UTI TRANSTHORACIC ECHOCARDIOGRAM (TTE) COMPLETE W/ CONTRAST Routine 09/11/2024 9:15 AM EST Dilated cardiomyopathy (CMS/HCC) Essential hypertension XR SHOULDER 2+ VIEWS LEFT Routine 2024 2:41 PM EST Chronic left shoulder pain TESTOSTERONE, TOTAL Routine 08/22/2024 2:16 PM EST Hair loss DEHYDROEPIANDROSTERONE Routine 2:16 PM EST Hair loss VITAMIN B12 Routine 08/22/2024 2:16 PM EST Hair loss THYROID STIMULATING HORMONE WITH REFLEX TO FREE T4 AND FREE T3 Routine 08/22/2024 2:16 PM EST Hair loss SANTOS URINE CULTURE TUBE Routine 08/07/19 25 [...] Urinary tract infection without hematuria, site unspecified ANNUAL BMP BLOOD TEST Routine 05/03/2024 LIPID PANEL Routine 01/03/2024 SCR MAMMO BI INCL CAD Routine 04/27/2020 11:20 AM EDT Encounter for screening mammogram for malignant neoplasm of breast HPV Routine 11/17/2018 HEPATITIS C SCREENING Routine 11/08/2013 from Last 3 Months or Most Recently Relevant to Health Maintenance Results * (ABNORMAL) Urinalysis with reflex microscopic and culture (10/04/2024 3:02 PM EDT) Only the most recent of2 resultswithin the time period is included. Specific [place] Urine 1.019 1.003 - 1.030 LAB URINALYSIS - AUTOMATED METHOD 10/04/2024 6:17 PM [facility] pH, Urine 6.0 5.0 - 8.0 pH LAB URINALYSIS - AUTOMATED METHOD 10/04/2024 6:17 PM [facility] Leukocytes, Urine Large(A) Negative LAB URINALYSIS - AUTOMATED METHOD 10/04/2024 6:17 PM [facility] Nitrite, Urine Negative Negative LAB URINALYSIS - AUTOMATED METHOD 10/04/2024 6:17 PM [facility] Protein, Urine 100(A) <=Trace mg/dL LAB URINALYSIS - AUTOMATED METHOD 10/04/2024 6:17 PM [facility] Glucose, Urine Negative Negative mg/dL LAB URINALYSIS - AUTOMATED METHOD 10/04/2024 6:17 PM [facility] Ketones, Urine Negative Negative mg/dL LAB URINALYSIS - AUTOMATED METHOD 10/04/2024 6:17 PM [facility] Urobilinogen , Urine 1.0 0.2 - 1.0 mg/dL LAB URINALYSIS - AUTOMATED METHOD 10/04/2024 6:17 PM [facility] Bilirubin, Urine Negative Negative LAB URINALYSIS - AUTOMATED METHOD 10/04/2024 6:17 PM [facility] Blood, Urine Large(A) Negative LAB URINALYSIS - AUTOMATED METHOD 10/04/2024 6:17 PM [facility] RBC, Urine 63.3(H) 0 - 4 /HPF LAB URINALYSIS - AUTOMATED METHOD 10/04/2024 6:17 PM [facility] WBC, Urine >4,000(H) 0 - 4 /HPF LAB URINALYSIS - AUTOMATED METHOD 10/04/2024 6:17 PM [facility] Squamous Epithelial, Urine >100(H) 0 - 60 /LPF LAB URINALYSIS - AUTOMATED METHOD 10/04/2024 6:17 PM EDT [facility] Crystals, Urine Moderate starch crystals. /LPF LAB URINALYSIS - AUTOMATED METHOD 10/04/2024 6:17 PM EDT [facility] Bacteria, Urine Few(A) Negative /HPF LAB URINALYSIS - AUTOMATED METHOD 10/04/2024 6:17 PM EDT [facility] Hyaline Casts, Urine 2.0 0 - 3 /LPF LAB URINALYSIS - AUTOMATED METHOD 10/04/2024 6:17 PM EDT [facility] Yeast, Urine Present(A) None /HPF LAB URINALYSIS - AUTOMATED METHOD 10/04/2024 6:17 PM EDT [facility] Urine Urine specimen obtained by clean catch procedure / Unknown Non-blood Collection / Unknown 10/04/2024 3:02 PM EDT 10/04/2024 3:02 PM EDT Dre SHAIKH LAB URINE ORDERABLES Final Re sult Performing Organization Address City/[facility]/ZIP Co de Phone Number [facility] [address] [place] [address], [place] [phone] * Santos urine culture tube (10/04/2024 3:02 PM EDT) Only the most recent of2 resultswithin the time period is included. Extra Tube Hold for add-ons. 10/04/2024 6:01 PM EDT [facility] Comment:Auto resulted. Urine Urine specimen obtained by clean catch procedure / Unknown Non-blood Collection / Unknown 10/04/2024 3:02 PM EDT 10/04/2024 3:02 PM EDT us Dre SHAIKH LAB URINE ORDERABLES Final Re sult Performing Organization Address City/[facility]/ZIP Co de Phone Number [facility] [address] [place] [address], [place] [phone] * (ABNORMAL) Culture urine (10/04/2024 3:02 PM EDT) Only the most recent of2 resultswithin the time period is included. Culture, Urine 50,000-100, 000 CFU/mL Tatum albicans/du bliniensis( A) 10/06/2024 2:05 PM EDT [facility] Comment: The organism value for this result has been updated. These results have been appended to the previously preliminary verified report. Urine Urine specimen obtained by clean catch procedure / Unknown Non-blood Collection / Unknown 10/04/2024 3:02 PM EDT 10/04/2024 6:16 PM EDT us Dre SHAIKH LAB MICROBIOLOGY - GENERAL OR DERABLES Final Result [facility] [address] [place] [address], [place] [phone] * (ABNORMAL) TRANSTHORACIC ECHOCARDIOGRAM (TTE) COMPLETE W/ CONTRAST (09/11/2024 9:15 AM EST) Left Atrium Minor Britt 6.3 cm CV PACS Left Atrium Major Britt 5.4 cm CV PACS LA Area Sys (A2C) 27 cm2 CV PACS LA Area Sys (A4C) 17 cm2 CV PACS LA Volume (BP) 70 mL CV PACS RA Area 16.5 cm2 CV PACS RA 2D Volume 44 mL CV PACS AV Mean Gradient 3 mmHg CV PACS Ao VTI 25.3 cm CV PACS AV Peak Perico 1.1 m/s CV PACS AV Peak Gradient 5 mmHg CV PACS AV Area Continuity Equation 2.8 cm2 CV PACS AV Area Peak Velocity 2.9 cm2 CV PACS Aortic Sinus Valsalva 3.8 cm CV PACS Ascending Aorta 3.6 cm CV PACS IVSD 1.1(A) 0.6 - 0.9 cm CV PACS LVIDD 4.2 3.8 - 5.2 cm CV PACS LVIDS 3.2 2.2 - 3.5 cm CV PACS LVOT Diameter 2.2 cm CV PACS LVOT Mean Grad 1 mmHg CV PACS LVOT Peak VTI 18.7 cm CV PACS LVOT Mean Perico 0.5 m/s CV PACS LVOT Peak Perico 0.8 m/s CV PACS LVOT Peak Gradient 3 mmHg CV PACS LVPWD 1.1(A) 0.6 - 0.9 cm CV PACS MV E' Tissue Velocity Lateral 9 cm/s CV PACS MV E' Tissue Velocity Septal 6 cm/s CV PACS LVOT Area 3.8 cm2 CV PACS LVOT Stroke Volume 71 mL CV PACS MV Deceleration Ida 2.8 m/s2 CV PACS E Wave Deceleration Time 189 119 - 242 ms CV PACS MV PHT 44 ms CV PACS MV Peak A Perico 0.62 m/s CV PACS MV Peak E Perico 0.42 m/s CV PACS MV Area PHT 5.0 cm2 CV PACS RV S' 7 cm/s CV PACS TAPSE 14 mm CV PACS TR Peak Velocity 1.36 m/s CV PACS TR Peak Gradient 7 mmHg CV PACS E/E' Ratio Septal 7 CV PACS E/E' Ratio Averaged 6 CV PACS Relative Wall Thickness ratio 0.52 CV PACS LVOT:AV VTI Index 0.74 CV PACS FS 24 % CV PACS LV Mass 2D 157 g CV PACS LVOT flow 190 mL/s CV PACS AV Velocity Ratio 0.73 CV PACS E/A Ratio 0.7 CV PACS E/E' Ratio Lateral 5 CV PACS LVOT Stroke Index 37 mL/m2 CV PACS Ascending Aorta Index 1.87 cm/m2 CV PACS RA 2D Volume Index 23 mL/m2 CV PACS IVONNE Index (VTI) 1.46 cm2/m2 CV PACS IVONNE Index (Pk Perico) 1.50 cm2/m2 CV PACS LVIDD Index 2.18 cm/m2 CV PACS LVIDS Index 1.66 cm/m2 CV PACS LA Volume Index (BP) 36 mL/m2 CV PACS LV Mass Index 2D 81 g/m2 CV PACS BSA 1.94 m2 CV PACS Anatomical Region Laterality Modality Ultrasound Narrative 09/11/2024 2:59 PM EST ?Left ventricle cavity size is normal. Left ventricular systolic function is mildly decreased with an ejection fraction of 40-45%. ?Definity contrast used to delineate endocardial borders ?Left ventricle mild concentric hypertrophy. ?Right ventricular systolic function is mildly reduced. ?Aortic valve leaflets are mildly thickened. ?The Sinus of Valsalva is dilated (3.8 cm). The ascending aorta is dilated (3.6 cm). Left Ventricle Left ventricle cavity size is normal. There is mild concentric hypertrophy. Systolic function is mildly decreased with an ejection fraction of 45-50%. Mild global LV hypokinesis is present. Apical wall segments appear to be more hypokinetic. There is Grade I (mild) diastolic dysfunction. Right Ventricle Right ventricle was not well visualized. Systolic function is mildly reduced. Left Atrium Left atrium cavity is mildly dilated. Right Atrium Right atrium cavity is normal. IVC/SVC Inferior vena cava structure is normal. RA pressures is estimated to be 3 mmHg (IVC diameter <21 mm and decreases >50% during inspiration). Mitral Valve The leaflets are mildly thickened. There is mild annular calcification. There is trace regurgitation. There is no evidence of mitral valve stenosis. Tricuspid Valve Tricuspid valve structure is normal. There is trace regurgitation. There is no evidence of tricuspid valve stenosis. Aortic Valve The aortic valve is trileaflet. The leaflets are mildly thickened. There is no significant regurgitation. There is no evidence of aortic valve stenosis. Pulmonic Valve Visualized portions of the pulmonic valve appear normal. No significant pulmonic valve regurgitation. There is no evidence of pulmonic valve stenosis. Ascending Aorta The Sinus of Valsalva is (3.8 cm). The ascending aorta is (3.6 cm). Pericardium Pericardium appears normal. There is no pericardial effusion. Study Details Overall the study quality was technically difficult. Definity contrast was given to enhance imaging. Study was difficult due to: poor endocardial visualization, patient body habitus and procedure performed with the patient in a supine position. Wall Scoring Baseline Score Index: 2.00 The left ventricular wall motion is globally hypokinetic. us Keyanna Lucia NP CV ECHO PROCEDURES Final R esult * XR Shoulder 2+ Views Left (08/22/2024 2:41 PM EST) Anatomical Region Laterality Modality Upper Extremities, Shoulder Left Radi ographic Imaging 08/22/2024 6:31 PM EST Impressions 08/22/2024 6:32 PM EST Mild degenerative changes at the acromioclavicular joint. -------- FINAL REPORT -------- Dictated By: Leticia Puga Dictated Date: 08/22/2024 18:31 ET Assigned Physician: Leticia Puga Reviewed and Electronically Signed By: Leticia Puga Signed Date: 08/22/2024 18:32 ET Workstation ID: [id number] Transcribed By: Self Edit Transcribed Date: 08/22/2024 18:31 ET Narrative 08/22/2024 6:32 PM EST XR SHOULDER 2+ VIEWS LEFT Reason: left shoulder pain Comparison: None FINDINGS: Mild degenerative changes at acromioclavicular joint. ??Glenohumeral joint is intact. ??No fracture. ??No subluxation. ??No abnormal soft tissue calcification adjacent to the humeral head. Procedure Note Leticia Puga MD - 08/22/2024 XR SHOULDER 2+ VIEWS LEFT Reason: left shoulder pain Comparison: None FINDINGS: Mild degenerative changes at acromioclavicular joint. Glenohumeral jointis intact. No fracture. No subluxation. No abnormal soft tissuecalcification adjacent to the humeral head. IMPRESSION: Mild degenerative changes at the acromioclavicular joint. -------- FINAL REPORT -------- Dictated By: Leticia Puga Dictated Date: 08/22/2024 18:31 ET Assigned Physician: Leticia Puga Reviewed and Electronically Signed By: Leticia Puga Signed Date: 08/22/2024 18:32 ET Workstation ID: [id number] Transcribed By: Self Edit Transcribed Date: 08/22/2024 18:31 ET us Denia Lake MD IMG XR PROCEDURES Final Result * Thyroid stimulating hormone with reflex to free t4 and free t3 (08/22/2024 2:16 PM EST) [facility] TSH 2.67 0.40 - 4.00 mcIU/mL LAB CHEMISTRY METHOD 08/22/2024 6:02 PM EST [facility] Blood Venous blood specimen / Unknown Venipuncture / Unknown 08/22/2024 2:16 PM EST 08/22/2024 2:16 PM EST Denia Lake MD LAB BLOOD ORDERABL ES Final Result Performing Organization Address [facility] Co de Phone Number [facility] [address] [place] [address], [place] [phone] * (ABNORMAL) Dehydroepiandrosterone (08/22/2024 2:16 PM EST) [facility] DHEA (Dehydroepiandroster one), Unconjugated, LC/MS/MS 40(L) ng/dL 08/29/2024 10:37 AM EST [facility] Comment: Adult Female Reference Ranges ??Pre-Menopausal ?Mid Follicular: 385-1143 ng/dL ?Surge: ?345-2030 ng/dL ?Mid Luteal: ? 414-1295 ng/dL ??Post-Menopausal ?77-851 ng/dL This test was developed and its analytical performance characteristics have been determined by [employer]. It has not been cleared or approved by FDA. This assay has been validated pursuant to the CLIA regulations and is used for clinical purposes. Test Performed at: [employer] [facility] [address] [place], [place] ??[address] ? I Eddie JACOBS, PhD, YONATHAN Blood Venous blood specimen / Unknown Venipuncture / Unknown 08/22/2024 2:16 PM EST 08/22/2024 2:16 PM EST Denia Lake MD LAB BLOOD ORDERABL ES Final Result [facility] [address] [place] [address] * (ABNORMAL) Testosterone, total (08/22/2024 2:16 PM EST) [facility] Testosterone <7(L) 7 - 46 ng/dL LAB CHEMISTRY METHOD 08/22/2024 6:04 PM EST [facility] Blood Venous blood specimen / Unknown Venipuncture / Unknown 08/22/2024 2:16 PM EST 08/22/2024 2:16 PM EST Denia Lake MD LAB BLOOD ORDERABL ES Final Result [facility] [address] [place] [address], [place] [phone] * Vitamin B12 (08/22/2024 2:16 PM EST) [facility] Vitamin B-12 404 250 - 900 pcg/mL LAB CHEMISTRY METHOD 08/22/2024 6:17 PM EST [facility] Blood Venous blood specimen / Unknown Venipuncture / Unknown 08/22/2024 2:16 PM EST 08/22/2024 2:16 PM EST Denia Lake MD LAB BLOOD ORDERABL ES Final Result [facility] [address] [place] [address], [place] [phone] * Annual BMP Blood Test (05/03/2024) [facility] Annual BMP Blood Test Abstracted Historical Provider HEALTH MAINTENANCE Final Result * (ABNORMAL) Lipid panel (01/03/2024) [facility] LDL/HDL Ratio 4 0 - 4 Triglycerides 151(A) 0 - 150 mg/dL Cholesterol 227(A) 0 - 200 mg/dL HDL 65 >=40 mg/dL LDL Cholesterol 132(A) 0 - 100 mg/dL Blood Venous blood specimen / Unknown us Historical Provider LAB BLOOD ORDERABLES Tess l Result * SCR MAMMO BI INCL CAD (04/27/2020 [...] Low (<15%) Elana Cope MD IMG XR PROCEDURES Fi nal Result * Hm Cervical Cancer Screening: HPV (11/17/2018) [facility] Cervical Cancer Screening: HPV Negative, Abstracted Historical Provider HEALTH MAINTENANCE Final Result * Hepatitis C Screening (11/08/2013) [facility] Hepatitis C Screening Abstracted us Historical Provider HEALTH MAINTENANCE Final Result from Last 3 Months or Most Recently Relevant to Health Maintenance Insurance [facility] MEDICAID NEEL BEE [id number] Care Teams Fitness Specialist Relationship Specialty Start Date End Date Denia Lake MD [facility] [place] [address] PCP - General Internal Medicine 05/31/24
--- OUTSIDE RECORDS SUMMARY | 2024-10-24 06:18 | XMS_ITS ---
Author Name [facility] Organization Unknown History of Medication Use Medication Directions Dispensed Refills Start Date End Date Stat us tiZANidine (ZANAFLEX) 2 MG tablet TAKE 1 TABLET BY MOUTH 3 TIMES A DAY. 03/01/2024 03/16/2024 aborted EPINEPHrine 0.3 MG/0.3ML SOAJ 08/14/2022 active baclofen (LIORESAL) 20 MG tablet TAKE 1 TABLET BY MOUTH TWICE A DAY 10/28/2022 04/06/2023 aborted atorvastatin (LIPITOR) tablet 40 mg Take 1 tablet (40 mg total) by mouth daily. 05/22/2021 active albuterol (PROVENTIL) (2.5 MG/3ML) 0.083% nebulizer solution Take 3 mL (2.5 mg total) by nebulization every 6 (six) hours as needed for wheezing. 04/06/2023 aborted ibuprofen 600 MG tablet Take 1 tablet (600 mg total) by mouth every 8 (eight) hours as needed for pain. active levothyroxine (SYNTHROID) tablet 25 mcg Take 1 tablet (25 mcg total) by mouth daily. active Problems Problem Status Onset Date Problem Type Date of Resoluti on Source Lumbar spinal stenosis active 2019-11-02 ProblemAct [facility] Lumbar radiculopathy active 2019-11-02 ProblemAct [facility] High blood pressure active 2019-11-02 ProblemAct [facility] MS (multiple sclerosis) active 2021-11-25 ProblemAct [facility] Hyperlipidemia active 2019-11-02 ProblemAct CTT HNEMG Depression active 2019-11-02 ProblemAct [facility]THNEM G Urinary urgency active 2019-11-[address] [facility] Pre-diabetes active 2019-11-02 ProblemAct CTTHN EMG
== END 2024-10-24 06:15 | disposition home or self-care (01) ==
LOC: CF 06:14
PROVIDERS: Visit Provider Anesthesiology
DX: Z13.89 Encounter for screening for other disorder (principal)
CPT/HCPCS: J2795; J3301

== ENCOUNTER 2024-11-10 09:02 | Day surgery (SDC) | payer OTHER, SELFPAY ==
--- OUTSIDE RECORDS SUMMARY | 2024-11-07 09:25 | XMS_ITS | Encounter Summary ---
Author Organization [facility] Address [address] [place] [address] Care Team Providers Care Vending Mechanic Name Role Phone Denia Lake MD Primary Care Prov ider Encounter Details Date Type Department Care Team (Late st Contact Info) Description 05/23/2024 Nurse Triage Adult Medicine - [place] [address] [place] [phone] Denia Lake MD [address] [place] [address] Social History Tobacco Use Types Packs/Day Years [...] Care Team (Late st Contact Info) Description 11/08/2024 9:00 AM EDT Office Visit Adult Medicine - [place] [address] [place] [phone] Rae Lancaster PA [address] [place] [address] 11/13/2024 9:30 AM EDT Telemedicine [facility] [place] [address] [facility] [address] [place] [phone] Latoya Larry PA 175 [facility] 150 [place] [address] 11/28/2024 8:45 AM EDT Office Visit Orthopedic Surgery - [place] [address] 175 [facility] [address] [place] [phone] Hamilton Wang DPM [address] [address] documented as of this encounter Visit Diagnoses Diagnosis Urinary tract infection without hematuria, site unspecified- Primary documented in this encounter Care Teams Vending Mechanic Relationship Specialty Start Date End Date Denia Lake MD [address] [place] [address] PCP - General Internal Medicine 05/31/24 documented as of this encounter
--- OUTSIDE RECORDS SUMMARY | 2024-11-07 09:25 | XMS_ITS | Encounter Summary ---
Author Organization [facility] Address [address] [place] [address] Care Team Providers Care Photography And Prints Curator Name Role Phone Denia Lake MD Primary Care Prov ider Reason for Visit * Reason Onset Date Comments vna 10/19/2024 Encounter Details Date Type Department Care Team (Late st Contact Info) Description 10/19/2024 Telephone Adult Medicine - [place] [address] [place] [phone] Denia Lake MD 230 [place] [address] vna Social History Tobacco Use Types Packs/Day [...] - 10/19/2024 1:11 PM EDT [facility] to [facility] [place] [facility] [address] Office: Toll Free: * Chani [place] - [...] 9:00 AM EDT Office Visit Adult Medicine [facility] [address] [place] [address] Rae Lancaster PA [address] [place] [address] 11/13/2024 9:30 AM EDT Telemedicine [facility] [place] [address] [facility] 150 [place] [phone] Latoya Larry PA 175 [facility] [address] [place] [address] 11/28/2024 8:45 AM EDT Office Visit Orthopedic Surgery - [place] [address] [facility] [address] [place] [phone] Hamilton Wang DPM [address] [address] documented as of this encounter Visit Diagnoses Not on filedocumented in this encounter Care Teams Photography And Prints Curator Relationship Specialty Start Date End Date Denia Lake MD [address] [place] [address] PCP - General Internal Medicine 05/31/24 documented as of this encounter
--- OUTSIDE RECORDS SUMMARY | 2024-11-07 09:25 | XMS_ITS | Data Portability ---
Author Organization [employer] Address [address] [place] [address] Care Team Providers Care Assistant Prosecuting Attorney Name Role Phone HIM CCA OTHER PERNELL TARIQ Primary Care Provider Assessment Encounter Date Assessment Date Assessment LastModified by Organization Details LastModified Time 04/26/2024 04/26/2024 As noted, we were called to see this patient regarding concerns of UTI. Evaluation in the field was performed by my practicing urologist colleague, as noted above, I provided real-time [...] any acute worsening or change in symptoms. [email or web address] Not available 04/26/2024 14:45:12 04/27/2024 04/27/2024 64 yo F seen yesterday with UTI sxs and started on levaquin 750 daily (now s/p 2 doses), calls w ongoing urinary symptoms and sxs of vaginal yeast infection. VS wnl. Prelim UCx with GNRs. Discussed that patient should continue to take levaquin to completion. I have also sent diflucan rx for yeast infection. [email or web address] Not available 04/27/2024 21:15:26 07/26/2024 07/26/2024 I provided real -time medical direction via phone for this encounter and was available for additional phone-based assistance as needed. I have reviewed and agree with the Assessment and Plan as documented by the Night Shift Supervisor. Patient given the opportunity to ask questions. Our service contacted for an assessment of: Urinary symptoms As per above, patient with approximately 24 hours of dysuria, frequency. No history of frequent urinary tract infections. Denies fever, chills, abdominal pain, back pain, flank pain. Per practicing urologist on the scene, Vital signs are stable [...] Go To The Location Of Their Choice, [address] 20:06:38 urinalysis, dipstick 2023 024 [place] 84 [facility], [address] [place] [address], [phone] 14:40:00 Referral None recorded. Procedures None recorded. Surgeries None recorded. Imaging None recorded. Medication Orders levofloxaci n 500 mg tablet 2024 025 [facility]/Pharmacy #[id number], [address] [place] [address], [address], 5 21:35:43 levofloxaci n 500 mg tablet [address]/Pharmacy #[id number], [address] [place] [address], [address], 5 21:35:41 Diflucan 150 mg tablet 2023 024 [facility]/Pharmacy #[id number], [address] [place] [address], [address], 19:43:38 levofloxaci n 750 mg tablet 2023 024 [place] 84 [facility]/Pharmacy #[id number], [address] [place] [address], [address], 14:41:18 levofloxaci n 750 mg tablet 2023 024 [place] 84 [facility]/Pharmacy #[id number], [address] [place] [address], [address], 14:41:37 Patient TargetsNo targets recorded. Patient InstructionsNo instructions recorded. Reason for Referral None Reported. Results Created Date Observation Date Name Description Value Unit Range Abnormal Flag Note LastModifiedBy Organization Detail LastModifiedTime 04/26/2004/28/2024 URINE CULTU RE,CO MPREH ENSIV E urine culture,comp rehensive Final report abnormal Not Available [facility] ([facility]) [address] [facility], [place], [address], 04/28/2024 10:06:27 04/26/2004/28/2024 URINE CULTU RE,CO MPREH ENSIV E result 1 Escher ichia coli abnormal Great er than 100,0 00 colon y formi ng units per mL Cefaz hayden <=4 ug/mL Cefaz haydne with an AGUILA <=16 predi cts susce [...] ilis. Not Available [facility] ([facility]) [address] [facility], [place], [address], 04/28/2024 10:06:27 04/26/2004/28/2024 URINE CULTU RE,CO MPREH [...] S Not Available [facility] ([facility]) [address] [facility], [place], [address], 04/28/2024 10:06:27 Result Notes None recorded. Medical Equipment None Reported. Allergies Allergen ID Allergen Name Allergen Category Reaction Reaction Severity Criticality Documentation Date Start Date Code Code System Note Provider Name and Address Organization Details Recorded Time 6545 Substance with sulfonami de structure and antibacte rial mechanism of action (substanc e) medicatio n Not available Not available Not available 05/01/2024 01806 8003 SNOMED Sylvie lassiter [place] [employer] 18:52:04 6546 Macrobid medicatio n Not available Not available Not available 05/01/2024 83433 1 [employer] [employer] 18:52:16 Medications Name Sig Start Date Stop [...] % 98 % 58 /min 16 /min 04116.7 6 g 100.7 [degF] 126 mm[Hg] 76 mm[Hg] Not Available [employer] - production 4 14:36:11 Date Recorded Heart rate Body weight Respiratory rate Oxygen saturation Oxygen saturation in Arterial blood by Pulse oximetry Body temperature Systolic blood pressure Diastolic blood pressure Provider Name and Address Organization Details Last Updated DateTime 4 56 /min 80838.1 12 g 16 /min 98 % 98 % 97.8 [degF] 106 mm[Hg] 60 mm[Hg] Not Available [employer] 4 19:31:36 Date Recorded Heart rate Body [...] SNOMED-CT Code Diagnosis ICD10 Code Diagnosis Note 76858 Rolando Valdivia MD [place] - [facility] [address] [place] [phone] 04/26/2024 14:35:59 04/27/2024 14:53:21 Acute urinary tract infection 318639223 N39.0 73334 IVAN CARBALLO MD Main - [facility] [address] [place] [phone] 04/27/2024 19:31:34 04/27/2024 22:32:44 Candidiasis of vagina 48589417 B37.31 11387 Heather Fall MD Main - [facility] [address] [place] [phone] 07/26/2024 17:49:57 07/26/2024 22:12:25 Urinary symptoms [id number] R39.9 Health Concerns Section Related Observation LastModified by Organization Detai ls LastModified Time None Recorded Concern Status LastModified by Organization Details LastModified Time None Recorded Advance Directives Directive None Recorded Payers Encounter Date Sequence Insurance Name Policy Number Policy Jones Covered Member ID Jones Member ID Guarantor Name 04/26/2024 1 [facility] - DOS ON OR AFTER 2022 - DUAL ELIGIBLE - USP OPTIONS AND ONE CARE (MEDICARE REPLACEMENT/ADV ANTAGE - HMO) Maria Adams [id number] Maria Adams 04/27/2024 1 [facility] - DOS ON OR AFTER 2022 - DUAL ELIGIBLE - USP OPTIONS AND ONE CARE (MEDICARE REPLACEMENT/ADV ANTAGE - HMO) Maria Adams [id number] Maria Adams 07/26/2024 1 [facility] - DOS ON OR AFTER 2022 - DUAL ELIGIBLE - USP OPTIONS AND ONE CARE (MEDICARE REPLACEMENT/ADV ANTAGE - HMO) Maria Adams [id number] Maria Adams Notes Date Note Type Note [...] Reports low back pain which is baseline. [place] feverish yesterday. Temp 97.2. Night Shift Supervisor Organization Information for Gee Guajardo [employer] KAREN Business Legal Name: [facility] [employer] Address: [address] [place] [address], Lining Machine Tender: Booker Adame MD [facility] No.: [id number] Night Shift Supervisor POC Test Results from Gee Guajardo Urine Dipstick (14:27:28) Urine leukocytes: 500+++ TANESHA Urine nitrites: + NIT Urine urobilinogen: NR Urine protein: 30(0.3) PRO Urine pH: 5 pH Urine blood: +++ BLO Urine specific gravity: 1.015 SG Urine ketones: NR Urine bilirubin: NR Urine glucose: NR .................... .................... .................... .................... .................... .................... .................... . Night Shift Supervisor Note From Casandra Gee: Pt co painful [...] tenderness on palpation. Urine culture drawn up. [facility] contacted and Pt given first does of [...] .................... . Disposition: Fulfilled Rolando Valdivia MD [address] [place] [address],[address], [place], [address], [employer] 04/26/2024 15:21:10 04/27/2024 text/html CRC Nurse Triage [...] .................... .................... .................... .................... .................... .................... . Night Shift Supervisor Note From Gee Guajardo: Pt co continued [...] fever, NVD, abdominal pain. Baseline vitals assessed, Afebrile.[facility] contacted and x for diflucan. Pt sts daughter will picker / packer rx. Pt expressed gratitude for re visit. [facility] contacted and advised will continue with current antibiotic rx until completion. Pt agreeable. Pt education on signs indicating the ER. Pt advised to follow up with pcp if symptoms continue. .................... .................... .................... .................... .................... .................... .................... . Disposition: Fulfilled IVAN CARBALLO MD [address] [facility],[address], [place], [address], [employer] 04/27/2024 21:15:33 07/26/2024 text/html CRC Nurse Triage [...] at 07/26/2024 Allergies Reviewed at 07/26/2024: Comments: Food And Beverage Coordinator verified the patient's name//address and phone number. [...] .................... .................... .................... .................... .................... .................... . Night Shift Supervisor Note From Richard Emanuel: Was dispatched for [...] urine was attempted but with no success. [facility] was contacted, [facility] is willing to treat without a possible urine, [facility] ordered 500 MG of Levofloxacin and perscribed it to the PT to be picked up at her local pharmacy. crew cleared .................... .................... .................... .................... .................... .................... .................... . [facility] Consulted: Heather Fall .................... .................... .................... .................... .................... .................... .................... . Disposition: Fulfilled Heather Fall MD [address] [facility],[address] [facility], [place], [address], [employer]ASH[employer] 07/26/2024 21:36:02 OBGyn Episode No OBEpisode recorded.
--- OUTSIDE RECORDS SUMMARY | 2024-11-07 09:25 | XMS_ITS | Clinical Summary ---
Author Organization [facility] 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 Collazo-01/23/2021 Multiple sclerosis 04/07/2006 Overview (07/01/2024): Dr. Garcia, Dr. Carlos Per [facility], the patient is disabled and requires 30 hours of BURGLAR ALARM MECHANIC care per week Tysabri, Baclofen pump- greatly benefits 10/27- [facility] - PT, OT Group Adult Daycare/[facility] (caregiver Topher Adams, backup Evangelina AdamsSy) - 06/29 - left [facility] 07/31 - per pt request, returning from Tysabri to Betaseron and IV Solumedrol 01/28 - per Phong, does not qualify for BURGLAR ALARM MECHANIC as does not require hands-on with 2 ADLs; her son's girlfriend will be foster caregiver 03/31 - Rebekah 09/29-group adult foster care 11/29-physiatry referral 12/30-difficulties with ADLs-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, bathing without assistance, dressing 05/02 - pending [...] Comments Breast Cancer Screening 1961 Pneumococcal Vaccine: 50+ Years (1 of 2 - PCV) 02/26/1980 Colorectal Cancer Screening: Annual FOBT 2010 Colorectal Cancer Screening: Colonoscopy 2010 Colorectal Cancer Screening: Sigmoidoscopy 2010 Influenza Vaccine Completed 03/30/2024, , 05/03/2023, Additional history exists Hepatitis B Vaccine Aged Out No longe r eligible based on patient's age to complete this topic Insurance [facility] ([id number]) NEEL BEE [id number] Care Teams Sterile Proc Tech Relationship Specialty Start Date End Date Denia Lake MD [address] [place] [phone] PCP - General Internal Medicine 05/05/24
--- OUTSIDE RECORDS SUMMARY | 2024-11-07 09:25 | XMS_ITS | Clinical Summary ---
Author Organization [facility] Address [address] [place] [address] Phone Care Team Providers Care Terra Cotta Roofer Helper Name Role Phone Denia Lake MD Primary [...] incontinence pad, liner, disp padIndications:M ultiple sclerosis (CMS/HCC V24, CMS/HCC V28),Neurogenic bladder To use Bladder pads with 11 [...] & vomiting 12/01/2023 SBO (small bowel obstruction) (CMS/[facility] V24, CMS/ [facility] V28) 11/29/2023 Arthritis of knee 06/07/2023 Thyroid nodule 06/23/2022 Steroid-induced hyperglycemia 06/23/2022 Dilated cardiomyopathy (CMS/HCC V24, CMS/[facility] V28 ) 01/22/2022 Overview (05/29/2024): Last Assessment & Plan: [...] The patient's daughter will send me a [employer] message in a couple weeks and let [...] Overview (05/29/2024): Referred to Dr. Posadas by [facility] 10/31 - oxybutynin Leukopenia 10/19/2014 Overview (05/29/2024): Noted at [facility] 10/23/14 - [facility] following Splenomegaly 11/08/2012 Dyspnea 06/28/2012 Overview [...] 01/17 Overview (05/29/2024): 01/27 - Referred to lab manager by Dr. 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 Garcia- indomethacin Falls frequently 06/06/2010 Overview (05/29/2024): Walks with Moroccan crutch 05/01 - using a wheeled walker Constipation 07/03/2008 Overview (05/29/2024): Dr. Dwyer- likely secondary to MS & Baclofen- increase Miralax to BID & add Amitiza; water intake encouraged Paralysis spastic (CMS/HCC V24, CMS/HCC V28) 10/2007 Overview (05/29/2024): Botox injections Dr. Meier (PM&R)- Baclofen pump 09/28 - patient expresses interest in discontinuing Depression 07/16/2006 Multiple sclerosis (CMS/HCC V24, CMS/HCC V28) Overview (05/29/2024): Dr. Garcia, Dr. Carlos Per [facility], the patient is disabled and requires 30 hours of CAT SCAN TECHNOLOGIST care per week Tysabri, Baclofen pump- greatly benefits 10/27- [facility] - PT, OT Group Adult Daycare/Fostercare from [facility] (caregiver Topher Adams, backup Evangelina Adams-Sy) - 06/29 - left [facility] 07/31 - per pt request, returning from Tysabri to Betaseron and IV Solumedrol 01/28 - per Phong, does not qualify for CAT SCAN TECHNOLOGIST as does not require hands-on with 2 ADLs; her son's girlfriend will be foster caregiver 03/31 - Rebekah 09/29-group adult foster care 11/29-physiatry referral 12/30-difficulties with ADLs-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, bathing without assistance, dressing 05/02 - pending repeat MRI brain; may be a Provigil candidate 10/01 - hospital admissions for flares; for Neuro, pending repeat MRI brain; possible Provigil for fatigue Encounters Date Type Department Care Team Description 10/19/2024 Telephone Adult Medicine [address] [phone] Denia Greer MD vna 10/19/2024 Telephone Adult Medicine [address] [address] Denia Greer MD DME Supplies 10/11/2024 10:30 AM EDT Telemedicine [facility] [address] [place] [address] Latoya Larry PA Multiple sclerosis (CMS/HCC V24, CMS/HCC V28) (Primary Dx) 10/11/2024 Telephone Adult Medicine [facility] [address] [place] [address] Caroline Le MA 10/10/2024 9:00 AM EDT Office Visit Adult [address] [address] Denia Greer MD Multiple sclerosis (CMS/HCC V24, CMS/HCC V28) (Primary Dx); Dilated cardiomyopathy (CMS/HCC V24, CMS/HCC V28); Falls frequently; Hypothyroidism, unspecified type 10/10/2024 Telephone Adult Medicine - [facility] [address] [place] [address] Denia Greer MD Fitting for DME 10/09/2024 Telephone Adult Medicine - [facility] [address] [place] [address] Monique Best MA Results 10/04/2024 Telephone Adult Medicine - [facility] [address] [place] [address] Denia Greer MD 09/22/2024 Telephone Adult Medicine - [facility] [address] [place] [address] Caroline Le MA 09/20/2024 Telephone Adult [facility] [address] [place] [address] Denia Greer MD Fitting for DME 09/11/2024 10:00 AM EST Consult Adult Medicine - [facility] [address] [place] [address] Denia Greer MD Preop examination (Primary Dx); Age-related cataract of both eyes, unspecified age-related cataract type 09/11/2024 8:00 AM EST Ancillary Procedure [facility] [address] [facility] [address] [place] [address] Dilated cardiomyopathy (CMS/HCC V24, CMS/HCC V28); Essential hypertension 09/11/2024 Telephone Adult Medicine - [facility] [address] [place] [address] Caroline Le MA Fitting for DME 08/31/2024 Telephone Adult Medicine [facility] [address] [place] [address] Denia Greer MD Order (For incontinence supplies); Fitting for DME 08/25/2024 1:00 PM EST Telemedicine [facility] [address] [facility] [address] [place] [address] Latoya Larry PA Multiple sclerosis (CMS/HCC V24, CMS/HCC V28) (Primary Dx) 08/22/2024 2:24 PM EST - 08/22/2024 11:59 PM EST Hospital Encounter [address] [address] Chronic left shoulder pain Discharge Disposition: Home or Self Care 08/22/2024 1:30 PM EST Office Visit Adult [address] [address] Denia Greer MD Multiple sclerosis (CMS/HCC V24, CMS/HCC V28) (Primary Dx); Depression, unspecified depression type; Failed back syndrome of lumbar spine; Essential hypertension; Hair loss; Chronic left shoulder pain 08/18/2024 Telephone Adult [address] [address] Caroline Le MA Fitting for DME ([facility]/for Seat Lift recliner) 08/16/2024 Telephone Adult [address] [phone] Denia Greer MD Fitting for DME 08/15/[address] [address] Denia Greer MD Shoulder Pain from Last 3 Months Immunizations Name Administration Dates Next Due Influenza Quadravalent, MDCK , 0.5ml, preservative free (Flucelvax) 6mo and older 05/03/2023,06/25/2022,04/04/2021,2019,05/09/2019 Influenza Quadravalent, MDCK , 0.5ml, with preservative (Flucelvax) 6mo and older 04/14/2018,04/15/2017 Influenza trivalent, 0.5mL, preservative free (Fluarix; FluLaval; Fluzone) ages 6mo and older (Afluria) 3 years and older 03/30/2024,04/06/2016,05/15/2015,2013,07/25/2012,05/31/2007,04/21/2005 Measles 08/02/2015 Mumps 08/02/2015 PPD Test 11/10/2013,11/08/2013 [employer] SARS-CoV-2 COVID-19, mRNA, LNP-S, preservative free 07/03/2021,11/01/2020,10/11/2020 Rubella 08/02/2015 Td Tetanus diptheria (Tdvax) 7yo and older 03/02/2019 Tdap Tetanus diptheria acell ular pertussis (Boostrix; Adacel) 7yo and older 02/08/2009 Varicella live (Varivax) 12m o and older 08/02/2015 Surgical History Surgery Date Site/Laterality Comments OTHER SURGICAL HISTORY 11/30/2008 PROCEDURE: WI IMPLTJ REVJ/RPSG ITHCL/EDRL CATH BOAT JOINER HELPER W/O RAMOS; COMMENT: Dr. Crane - Baclofen pump OTHER SURGICAL HISTORY 08/13/2010 PROCEDURE: WI ARTHRS KNE SURG W/MENISCECTOMY MED/LAT W/SHVG; COMMENT: Dr. Hope Linton OTHER SURGICAL HISTORY 10/13/2010 PROCEDURE: WI INSERTION PICC W/O IMG GDN 5 YR/>; COMMENT: Nafisa GRIMALDO COLONOSCOPY 2004 PROCEDURE: HISTORICAL COLONOSCOPY; COMMENT: Jen; ?microscopic colitis HERNIA REPAIR 08/22/2015 PROCEDURE: WI REPAIR FIRST ABDOMINAL WALL HERNIA; COMMENT: Dr. [...] add Amitiza; water intake encouraged Multiple sclerosis (CMS/HCC V24, CMS/HCC V28) 04/07/2006 DX:Multiple sclerosis (HCC); COMMENT: Dr. Garcia, Dr. Carlos Per [facility], the patient is disabled and requires 30 hours of CAT SCAN TECHNOLOGIST care per week Tysabri, Baclofen pump- greatly benefits 10/27- [facility] - PT, OT Group Adult Daycare/Fostercare from [facility] (caregiver Topher Adams, backup Evangelina Adams-[facility]) - 06/29 - left [facility] 07/31 - per pt request, return* Dyspnea 06/28/2012 DX:Dyspnea; COMM ENT: Dr. Susan Guerra - likely secondary to MS Splenomegaly 11/08/2012 DX:Splenomegaly Osteopenia 04/13/2016 DX:Osteopenia Failed back syndrome of lumbar spine 06/24/2012 DX:Failed back syndrome of lumbar spine; COMMENT: Dr. Crane, Dr. Mata 06/29 - [facility] due to non-compliance 09/30 - L5-S1, L4-L5 anterior radical discectomy, arthodesis; L4-L5 interbody cage placement; [facility] for inpatient rehab 12/31 - NOW - [facility] 06/02 - bilateral SI joint and ligament injections Acquired hammer toe 06/03/2007 DX:Acquired hammer toe; COMMENT: Dr. Valero, Dr. Aguero 10/01 - hammertoe boot and splint; if fails conservative treatment, may need hallux IP fusion and 2nd hammertoe repair Essential hypertension, benign 01/29/2016 D X:Essential hypertension, benign Falls frequently 06/06/2010 DX:Falls freque ntly; COMMENT: Walks with Moroccan crutch 05/01 - using a wheeled walker Hypothyroidism, acquired 05/15/2015 DX:Hypo thyroidism, acquired Leukopenia 10/19/2014 DX:Leukopenia; C OMMENT: Noted at [place] 10/23/14 - [facility] following Nasal fracture 02/26/2015 DX:Nasal fractur e; COMMENT: Dr. Guillory 03/02 - consider of septorhinoplasty at some point Neurogenic bladder 10/23/2014 DX:Neurogenic bladder; COMMENT: Referred to Dr. 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 Garcia- indomethacin Periodic limb movement disorder 05/13/2012 DX:Periodic limb movement disorder; COMMENT: 04/29 - sleep study; advised to check ferritin level and consider dopamine agonist trial Radiologic findings of lung field, abnormal 02/09/2012 DX:Radiologic findings of liss ng field, abnormal; COMMENT: 01/27 - Referred to lab manager by Dr. Jarrett for findings consistent with asbestosis on chest CT Paralysis spastic (CMS/HCC V 24, CMS/HCC V28) 05/22/2008 DX:Paralysis spastic (HCC); COMMENT: Botox injections Dr. Meier (PM&R)- Baclofen [...] AM EDT Office Visit Adult Medicine - [place] [address] [place] [address] Rae Lancaster PA [address] [place] [address] 11/13/2024 9:30 AM EDT Telemedicine [facility] [place] [facility] [address] [phone] Latoya Larry PA [address] [address] 11/28/2024 8:45 AM EDT Office Visit Orthopedic Surgery - [facility] [address] [phone] Hamilton Wang DPM [address] [address] Health Maintenance Due Date Last Done Comments [...] 06/24/2022 Depression Screening 06/24/2022 HIV Screening 06/24/2022 Medicare Annual Wellness Visit 06/24/2022 Social Influencers of Health Screening 06/24/2022 [...] Comments SANTOS URINE CULTURE TUBE Routine 10/05/19 25 3:02 PM EDT Recurrent UTI URINALYSIS WITH REFLEX MICROSCOPIC AND CULTURE Routine 10/04/2024 3:02 PM EDT Recurrent UTI URINALYSIS WITH REFLEX MICROSCOPIC AND CULTURE Routine 10/04/2024 3:02 PM EDT Recurrent UTI CULTURE URINE Routine 10/04/2024 3:02 PM EDT Recurrent UTI TRANSTHORACIC ECHOCARDIOGRAM (TTE) COMPLETE W/ CONTRAST Routine 09/11/2024 9:15 AM EST Dilated cardiomyopathy (CMS/HCC V24, CMS/HCC V28) Essential hypertension XR SHOULDER 2+ VIEWS LEFT Routine 2024 2:41 PM EST Chronic left shoulder pain TESTOSTERONE, TOTAL Routine 08/22/2024 2:16 PM EST Hair loss DEHYDROEPIANDROSTERONE Routine 2:16 PM EST Hair loss VITAMIN B12 Routine 08/22/2024 2:16 PM EST Hair loss THYROID STIMULATING HORMONE WITH REFLEX TO FREE T4 AND FREE T3 Routine 08/22/2024 2:16 PM EST Hair loss ANNUAL BMP BLOOD TEST Routine 05/03/2024 LIPID PANEL Routine 01/03/2024 SCR MAMMO BI INCL CAD Routine 04/27/2020 11:20 AM EDT Encounter for screening mammogram for malignant neoplasm of breast HPV Routine 11/17/2018 HEPATITIS C SCREENING Routine 11/08/2013 from Last 3 Months or Most Recently Relevant to Health Maintenance Results * (ABNORMAL) Urinalysis with reflex microscopic and culture (10/04/2024 3:02 PM EDT) Specific [place] Urine 1.019 1.003 - 1.030 LAB URINALYSIS - AUTOMATED METHOD 10/04/2024 6:17 PM [facility] pH, Urine 6.0 5.0 - 8.0 pH LAB URINALYSIS - AUTOMATED METHOD 10/04/2024 6:17 PM [facility] Leukocytes, Urine Large(A) Negative LAB URINALYSIS - AUTOMATED METHOD 10/04/2024 6:17 PM [facility] Nitrite, Urine Negative Negative LAB URINALYSIS - AUTOMATED METHOD 10/04/2024 6:17 PM [facility] Protein, Urine 100(A) <=Trace mg/dL LAB URINALYSIS - AUTOMATED METHOD 10/04/2024 6:17 PM [facility] Glucose, Urine Negative Negative mg/dL LAB URINALYSIS - AUTOMATED METHOD 10/04/2024 6:17 PM [facility] Ketones, Urine Negative Negative mg/dL LAB URINALYSIS - AUTOMATED METHOD 10/04/2024 6:17 PM [facility] Urobilinogen , Urine 1.0 0.2 - 1.0 mg/dL LAB URINALYSIS - AUTOMATED METHOD 10/04/2024 6:17 PM [facility] Bilirubin, Urine Negative Negative LAB URINALYSIS - AUTOMATED METHOD 10/04/2024 6:17 PM [facility] Blood, Urine Large(A) Negative LAB URINALYSIS - AUTOMATED METHOD 10/04/2024 6:17 PM [facility] RBC, Urine 63.3(H) 0 - 4 /HPF LAB URINALYSIS - AUTOMATED METHOD 10/04/2024 6:17 PM [facility] WBC, Urine >4,000(H) 0 - 4 /HPF LAB URINALYSIS - AUTOMATED METHOD 10/04/2024 6:17 PM [facility] Squamous Epithelial, Urine >100(H) 0 - 60 /LPF LAB URINALYSIS - AUTOMATED METHOD 10/04/2024 6:[address] [facility] Crystals, Urine Moderate starch crystals. /LPF LAB URINALYSIS - AUTOMATED METHOD 10/04/2024 6:[address] [facility] Bacteria, Urine Few(A) Negative /HPF LAB URINALYSIS - AUTOMATED METHOD 10/04/2024 6:[address] [facility] Hyaline Casts, Urine 2.0 0 - 3 /LPF LAB URINALYSIS - AUTOMATED METHOD 10/04/2024 6:[address] [facility] Yeast, Urine Present(A) None /HPF LAB URINALYSIS - AUTOMATED METHOD 10/04/2024 6:[address] [facility] Urine Urine specimen obtained by clean catch procedure / Unknown Non-blood Collection / Unknown 10/04/2024 3:02 PM EDT 10/04/2024 3:02 PM EDT us Dre SHAIKH LAB URINE ORDERABLES Final Re sult Performing Organization Address City/[facility]/ZIP Co de Phone Number [facility] [address] [place] [address], [place] [phone] * Santos urine culture tube (10/04/2024 3:02 PM EDT) Extra Tube Hold for add-ons. 10/04/2024 6:[address] [facility] Comment:Auto resulted. Urine Urine specimen obtained by clean catch procedure / Unknown Non-blood Collection / Unknown 10/04/2024 3:02 PM EDT 10/04/2024 3:02 PM EDT us Dre SHAIKH LAB URINE ORDERABLES Final Re sult Performing Organization Address City/[facility]/ZIP Co de Phone Number [facility] [address] [place] [address], [place] [phone] * (ABNORMAL) Culture urine (10/04/2024 3:02 PM EDT) Culture, Urine 50,000-100, 000 CFU/mL Tatum albicans/du bliniensis( A) 10/06/2024 2:[address] [facility] Comment: The organism value for this result has been updated. These results have been appended to the previously preliminary verified report. Urine Urine specimen obtained by clean catch procedure / Unknown Non-blood Collection / Unknown 10/04/2024 3:02 PM EDT 10/04/2024 6:16 PM EDT us Dre SHAIKH LAB MICROBIOLOGY - GENERAL OR DERABLES Final Result [facility] [address] [place] [address], [place] [phone] * (ABNORMAL) TRANSTHORACIC ECHOCARDIOGRAM (TTE) COMPLETE W/ CONTRAST (09/11/2024 9:15 AM EST) Left Atrium Minor [place] 6.3 cm CV PACS Left Atrium Major [place] 5.4 cm CV PACS LA Area Sys [...] Volume 71 mL CV PACS MV Deceleration Motley 2.8 m/s2 CV PACS E Wave Deceleration [...] Signed Date: 08/22/2024 18:32 ET Workstation ID: [id number] Transcribed By: Self Edit Transcribed Date: 08/22/2024 [...] Signed Date: 08/22/2024 18:32 ET Workstation ID: [id number] Transcribed By: Self Edit Transcribed Date: 08/22/2024 18:31 ET us Denia Lake MD IMG XR PROCEDURES Final Result * Thyroid stimulating hormone with reflex to free t4 and free t3 (08/22/2024 2:16 PM EST) TSH 2.67 0.40 - 4.00 mcIU/mL LAB CHEMISTRY METHOD 08/22/2024 6:[address] [facility] Blood Venous blood specimen / Unknown Venipuncture / Unknown 08/22/2024 2:16 PM EST 08/22/2024 2:16 PM EST Denia Lake MD LAB BLOOD ORDERABL ES Final Result Performing Organization Address [facility] [place]/[facility]/ZIP Co de Phone Number [facility] [address] [place] [address], [place] [phone] * (ABNORMAL) Dehydroepiandrosterone (08/22/2024 2:16 PM EST) [facility] DHEA (Dehydroepiandroster one), Unconjugated, LC/MS/MS 40(L) ng/dL 08/29/2024 10:37 AM EST [facility] Comment: Adult Female Reference Ranges ??Pre-Menopausal ?Mid Follicular: 385-1143 ng/dL ?Surge: ?345-2030 ng/dL ?Mid Luteal: ? 414-1295 ng/dL ??Post-Menopausal ?77-851 ng/dL This test was developed and its analytical performance characteristics have been determined by [employer]. It has not been cleared or approved by FDA. This assay has been validated pursuant to the CLIA regulations and is used for clinical purposes. Test Performed at: [employer] [facility] [id number] [place] [address] ??[phone] ? I Eddie JACOBS, PhD, YONATHAN Blood Venous blood specimen / Unknown Venipuncture / Unknown 08/22/2024 2:16 PM EST 08/22/2024 2:16 PM EST Denia Lake MD LAB BLOOD ORDERABL ES Final Result [facility] [address] [place] [address] * (ABNORMAL) Testosterone, total (08/22/2024 2:16 PM EST) [facility] Testosterone <7(L) 7 - 46 ng/dL LAB CHEMISTRY METHOD 08/22/2024 6:[address] [facility] Blood Venous blood specimen / Unknown Venipuncture / Unknown 08/22/2024 2:16 PM EST 08/22/2024 2:16 PM EST Denia Lake MD LAB BLOOD ORDERABL ES Final Result [facility] [address] [place] [address], [place] [phone] * Vitamin B12 (08/22/2024 2:16 PM EST) [facility] Vitamin B-12 404 250 - 900 pcg/mL LAB CHEMISTRY METHOD 08/22/2024 6:[address] [facility] Blood Venous blood specimen / Unknown Venipuncture / Unknown 08/22/2024 2:16 PM EST 08/22/2024 2:16 PM EST Denia Lake MD LAB BLOOD ORDERABL ES Final Result [facility] [address] [place] [address], [place] [phone] * Annual BMP Blood Test (05/03/2024) [facility] Annual BMP Blood Test Abstracted Historical Provider HEALTH MAINTENANCE Final Result * (ABNORMAL) Lipid panel (01/03/2024) [facility] LDL/HDL Ratio 4 0 - 4 Triglycerides [...] IMG XR PROCEDURES Fi nal Result * Cervical Cancer Screening: HPV (11/17/2018) Cervical Cancer Screening: HPV Negative, Abstracted us Historical Provider HEALTH MAINTENANCE Final Result * Hepatitis C Screening (11/08/2013) Hepatitis C Screening Abstracted Historical Provider HEALTH MAINTENANCE Final Result from Last 3 Months or Most Recently Relevant to Health Maintenance Insurance MEDICA[employer] - [place] [employer] MEDICARE Member Subscriber Plan / Payer (Ef fective 2019-Present) Name:Maria Adams Relation to Subscriber:Self Name:Maria Adams Payer ID:[id number] Group ID:[id number] Type:Not on file Address: [facility] [address] [address] Care Teams Terra Cotta Roofer Helper Relationship Specialty Start Date End Date Denia Lake MD [address] [place] [id number] PCP - General Internal Medicine 05/31/24
--- OUTSIDE RECORDS SUMMARY | 2024-11-07 09:25 | XMS_ITS | Encounter Summary ---
Author Organization [facility] Address [address] [place] [address] Care Team Providers Care Crossing Supervisor Name Role Phone Denia Lake MD Primary Care Prov ider Reason for Visit * Reason Onset Date Comments DME Supplies 10/19/2024 Encounter Details Date Type Department Care Team (Late st Contact Info) Description 10/19/2024 Telephone Adult Medicine - [place] [address] [place] [phone] Denia Lake MD [address] [place] [address] DME Supplies Social History Tobacco Use Types [...] AM EDT Office Visit Adult Medicine - [place] [address] [place] [address] Rae Lancaster PA [address] [place] [address] 11/13/2024 9:30 AM EDT Telemedicine - [place] 175 [facility] [address] [place] [phone] Latoya Larry PA 175 [facility] [address] [place] [address] 11/28/2024 8:45 AM EDT Office Visit Orthopedic Surgery - [place] 250 175 [facility] [address] [place] [phone] Hamilton Wang DPM [address] [address] documented as of this encounter Visit Diagnoses Not on filedocumented in this encounter Care Teams Crossing Supervisor Relationship Specialty Start Date End Date Denia Lake MD [address] [place] [address] PCP - General Internal Medicine 05/31/24 documented as of this encounter
--- OUTSIDE RECORDS SUMMARY | 2024-11-07 09:25 | XMS_ITS | Clinical Summary ---
Author Organization [facility] Address [address] [place] [address] Care Team Providers Care Robotic Maintenance Technician Name Role Phone Denia Lake MD Primary [...] age to complete this topic Care Teams Robotic Maintenance Technician Relationship Specialty Start Date End Date Denia Lake MD PCP - General Internal Medicine 11/09/23
--- NOTE | 2024-11-09 10:20 | P.CONAN_ITS ---
Documented by User: Heather Damon NP 11/09/24 10:21 HPI - Anesthesia Eval Consult details Narrative: 64yo F for Left PIRIFORMIS INJECTION, Trochanteric Bursa Injection PMFSH Active Problems Active Problems: All Active Problems Greater trochanteric bursitis of left hip (Acute) Lumbar radiculopathy (Acute) Piriformis syndrome of left side (Acute) Right shoulder pain (Acute) Neuropathy of left peroneal nerve (Acute) Neuropathy of left lower extremity (Acute) Paresthesia of right lower extremity (Acute) Degenerative joint disease of left hip (Acute) Iliotibial band syndrome of left side (Acute) Frequent falls (Acute) Failed back syndrome of lumbar spine (Acute) Lumbar degenerative disc disease (Acute) Left thigh pain (Acute) Chronic left hip pain (Acute) Spastic paralysis (Acute) Multiple sclerosis (Acute) Past Medical History Medical History (Updated 11/10/24 @ 09:48 by Devi Diane RN) Appendicitis Multiple sclerosis Paralysis Dyspnea Periodic limb movement disorder Splenomegaly Leukopenia Neurogenic bladder disorder Paroxysmal hemicrania Constipation Hypothyroidism Vitamin D deficiency GERD (gastroesophageal reflux disease) Hypertension Frequent UTI Pre-diabetes Urinary urgency Medical marijuana use Edema leg Hyperlipidemia Depression Family History Family History Mother Rheumatoid arthritis Thyroid cancer Father Rheumatoid arthritis Maternal Grandmother Lung cancer Maternal Grandfather Rectal cancer Maternal Aunt Thyroid cancer Surgical History Surgical History (Updated 11/10/24 @ 09:48 by Devi Diane RN) Hx of cataract surgery Hx of colonoscopy History of laparoscopic appendectomy [place] teeth extracted H/O: History of back surgery H/O: hysterectomy Social History Social History Alcohol intake: current Alcohol intake frequency: holidays/special occasions only Patient Tobacco Use Status: Current someday Tobacco user Have you been hit, kicked, punched, or otherwise hurt by someone within the past year? 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 Meds Allergies Allergy/AdvReac Type Severity Reaction Status Date / Time gadopentetic acid Allergy Unknown Vomiting Verified 10/24/24 09:05 [From Magnevist] nitrofurantoin Allergy Unknown Swelling Verified 10/24/24 09:05 [From Macrobid] sulfamethoxazole Allergy Unknown Hives Verified 10/24/24 09:05 [From Bactrim] trimethoprim [From Bactrim] Allergy Unknown Hives Verified 10/24/24 09:05 gabapentin AdvReac Hallucinati Verified 10/24/24 09:05 ons Gadopentetate Allergy Unknown Vomiting Uncoded 10/24/24 09:05 Home Medications ?Medication ?Instructions ?Recorded ?Confirmed ?Last Taken ?Type albuterol sulfate 90 mcg/actuation 1 g inhalation PRN Wheezing 01/02/22 10/24/24 Unknown History aerosol inhaler ascorbic acid (vitamin C) 500 mg 500 mg PO 01/02/22 10/24/24 Unknown History tablet (Vitamin C) levothyroxine 25 mcg tablet 25 mcg PO 01/02/22 10/24/24 11/10/24 History omeprazole 20 mg capsule,delayed 20 mg PO DAILY 01/02/22 10/24/24 11/10/24 History release epinephrine 0.3 mg/0.3 mL 0.3 ml IM ONCE PRN Allergic 09/29/22 10/24/24 Unknown History injection, auto-injector Reaction atorvastatin 20 mg tablet 20 mg PO DAILY 12/21/22 10/24/24 Unknown History acetaminophen 325 mg tablet 650 mg PO 02/14/24 10/24/24 11/10/24 History glatiramer 40 mg/mL subcutaneous mg subcut 3XW 08/18/24 10/24/24 11/06/24 History syringe Assessment and Plan Assessment Anesthesia Assessment: Chart Reviewed Documented by User: Geneva George MD 11/10/24 11:39 PMFSH Past Medical History Medical History (Updated 11/10/24 @ 09:48 by Devi Diane RN) Appendicitis Multiple sclerosis Paralysis Dyspnea Periodic limb movement disorder Splenomegaly Leukopenia Neurogenic bladder disorder Paroxysmal hemicrania Constipation Hypothyroidism Vitamin D deficiency GERD (gastroesophageal reflux disease) Hypertension Frequent UTI Pre-diabetes Urinary urgency Medical marijuana use Edema leg Hyperlipidemia Depression Family History Family History Mother Rheumatoid arthritis Thyroid cancer Father Rheumatoid arthritis Maternal Grandmother Lung cancer Maternal Grandfather Rectal cancer Maternal Aunt Thyroid cancer Family history of problems with anesthesia: No Surgical History Surgical History (Updated 11/10/24 @ 09:48 by Devi Diane RN) Hx of cataract surgery Hx of colonoscopy History of laparoscopic appendectomy [place] teeth extracted H/O: History of back surgery H/O: hysterectomy History of Problems with Anesthesia: No Social History Social History Alcohol intake: current Alcohol intake frequency: holidays/special occasions only Patient Tobacco Use Status: Current someday Tobacco user Have you been hit, kicked, punched, or otherwise hurt by someone within the past year? 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 Meds Allergies Allergy/AdvReac Type Severity Reaction Status Date / Time gadopentetic acid Allergy Unknown Vomiting Verified 10/24/24 09:05 [From Magnevist] nitrofurantoin Allergy Unknown Swelling Verified 10/24/24 09:05 [From Macrobid] sulfamethoxazole Allergy Unknown Hives Verified 10/24/24 09:05 [From Bactrim] trimethoprim [From Bactrim] Allergy Unknown Hives Verified 10/24/24 09:05 gabapentin AdvReac Hallucinati Verified 10/24/24 09:05 ons Gadopentetate Allergy Unknown Vomiting Uncoded 10/24/24 09:05 Home Medications ?Medication ?Instructions ?Recorded ?Confirmed ?Last Taken ?Type albuterol sulfate 90 mcg/actuation 1 g inhalation PRN Wheezing 01/02/22 10/24/24 Unknown History aerosol inhaler ascorbic acid (vitamin C) 500 mg 500 mg PO 01/02/22 10/24/24 Unknown History tablet (Vitamin C) levothyroxine 25 mcg tablet 25 mcg PO 01/02/22 10/24/24 11/10/24 History omeprazole 20 mg capsule,delayed 20 mg PO DAILY 01/02/22 10/24/24 11/10/24 History release epinephrine 0.3 mg/0.3 mL 0.3 ml IM ONCE PRN Allergic 09/29/22 10/24/24 Unknown History injection, auto-injector Reaction atorvastatin 20 mg tablet 20 mg PO DAILY 12/21/22 10/24/24 Unknown History acetaminophen 325 mg tablet 650 mg PO 02/14/24 10/24/24 11/10/24 History glatiramer 40 mg/mL subcutaneous mg subcut 3XW 08/18/24 10/24/24 11/06/24 History syringe Exam Airway Mallampati Class: Patient Non-Cooperative TM Dist: >3cm Neck ROM: Full Assessment and Plan Assessment Anesthesia Assessment: Anesthesia Plan Discussed Final Anesthetic Review Family History of Problems with Anesthesia: No History of Problems with Anesthesia: No NPO: Yes ASA Class: II Final Preanesthetic Review: No Changes in Pt Med Stat, Meds/Allgs Chart Re viewed, Consent Obtained/Reviewed and Anes Risks/Benef Reviewed Patient Risk: Low Procedure Risk: Low Anesthetic Plan Anesthetic Plan: TIVA Disposition: Standard PACU
[2024-11-10 06:26] VITALS: BMI 22.6
[2024-11-10 09:41] VITALS: BP 132/54; PULSE 59; RESP 18; TEMP 36.4; O2SAT 97; BMI 26.7
[2024-11-10] MEDS: Lactated Ringers 1,000 ML 100 ML IVCONT (10:08)
--- NOTE | 2024-11-10 11:35 | MHC.SHP ---
Pre-Procedural Eval Section A - 24 Hr Update-Section A only Date of Service: 11/10/24 The patient is an INPATIENT: No Changes since office visit: Yes Patient answered all questions The patient has been examined within 24 hours of the surgical procedure. The History & Physical has been completed within 30 days and I have reviewed it.: No Section B - Complete if H&P > 30 days Chief Complaint: Lesion of sciatic nerve, LL Limb,Trochanteric burs Details of Present Illness: As above Relevant Family History (Specify if Yes): No Relevant Social History: None Present Medications: see Short Stay Collaborative assessment Medical History: No relevant PMH History of Previous Operations: No relevant previous surgery Allergies: Allergies Allergy/AdvReac Type Severity Reaction Status Date / Time gadopentetic acid Allergy Unknown Vomiting Verified 10/24/24 09:05 [From Magnevist] nitrofurantoin Allergy Unknown Swelling Verified 10/24/24 09:05 [From Macrobid] sulfamethoxazole Allergy Unknown Hives Verified 10/24/24 09:05 [From Bactrim] trimethoprim [From Bactrim] Allergy Unknown Hives Verified 10/24/24 09:05 gabapentin AdvReac Hallucinati Verified 10/24/24 09:05 ons Gadopentetate Allergy Unknown Vomiting Uncoded 10/24/24 09:05 Review of Systems Sugical H&P ROS: Negative: Constitution, Cardiovascular, Respiratory, Psychiatric, Hem-Onc, Allergic/Immunologic, Gastrointestinal, Genitourinary, Musculoskeletal, Integumentary, Endocrine and Eyes/Ears/Nose/Throat and Yes, Specify: Neurological (Spastic paraparesis) Exam Surgical H&P Exam: Normal: HEENT, Normal: Heart, Normal: Lungs, Normal: Extremities, Normal: Abdomen and Normal: Skin and Significant Findings: Neurological (As above) Plan Diagnosis/Plan: Unchanged I have reviewed the history and physical and performed a pertinent physical examination on my patient. No changes have occurred unless specified. Time Spent With Patient Time: Total time managing care of this patient today __5__ minutes.
--- NOTE | 2024-11-10 12:36 | PM.OP ---
Brief Operative Note Date of Service: 11/10/24 Pre-op diagnosis: Myofascial pain syndrome, piriformis syndrome on the left. Post-op diagnosis: same Procedure: Ultrasound-guided piriformis injection on the left, trigger point injection on the left. Surgeon: Carroll Block MD Anesthesia: MAC Was an Fourdrinier Tender used for this Procedure?: No Estimated blood loss (mL): 0 Condition: stable Disposition: PACU
--- NOTE | 2024-11-10 12:43 | P.OP_ITS ---
Operative Note Operative Note Date of Service: 11/10/24 Narrative: Piriformis muscle injection ultrasound-guided on the left, trigger point injection in the area of left trochanter. Informed consent was explained risks and benefits were delineated as risk of bleeding and infection. The patient came to the operating room she was positioned prone on the operating table. [employer] monitors were applied and patient was deeply sedated. Her left buttock was prepped with ChloraPrep and draped with sterile self adhesive utility towels. Sterilely draped ultrasound probe was brought over the operating field and ultrasound picture of the gluteus henny gluteus medius and piriformis muscle were demonstrated on the screen. 22 gauge 100 mm echo stim needle was inserted next with the ultrasound probe in the in plane fashion. It was advanced to were the piriformis muscle under direct ultrasound live view. When tip of the needle was on the body of the piriformis muscle injection of the normal saline 3 mL was performed 1st demonstrating expansion of the fluid in the body of the piriformis muscle and after that injection of the solution of ropivacaine 0.5% mixed with Kenalog 40 mg was performed into the muscle. The expansion of the fluid was observed live on ultrasound. After that the patient turned slightly lateral and trochanteric area was prepped with ChloraPrep. The trochanter was palpated and injection of the ropivacaine 0.5% 5 mL mixed with Kenalog 40 mg was performed in the projection of the gluteus medius muscle using 25 gauge 1-1/2 inch needle mounted on 5 cc syringe.. Upon completion of the injection the needle was removed and Band-Aid was applied on both sides. The patient tolerated the procedure well.
[2024-11-10 12:46] VITALS: BP 118/59; PULSE 67; RESP 18; TEMP 36.1; O2SAT 98
[2024-11-10 12:51] VITALS: BP 128/68; PULSE 64; RESP 18; O2SAT 99
[2024-11-10 13:06] VITALS: BP 136/61; PULSE 68; RESP 18; TEMP 36.2; O2SAT 99
== END 2024-11-10 13:23 | disposition home or self-care (01) ==
PROVIDERS: PCP Internal Medicine; Visit Provider Anesthesiology
PROC: 3E023GC Introduction of Other Therapeutic Substance into Muscle, Percutaneous Approach (ICD-10-PCS; CPT 20552; principal; 2024-11-10 11:00)
PROC: (CPT 20552; 2024-11-10 11:00)
DX: G57.02 Lesion of sciatic nerve, left lower limb (principal); M70.62 Trochanteric bursitis, left hip; M79.18 Myalgia, other site
CPT/HCPCS: 20552; J2003; J2704; J2795; J3010; J3301

== ENCOUNTER → 2024-11-10 09:02 | Outpatient (BNV) | payer OTHER, SELFPAY | PROVIDERS: PCP Internal Medicine; Visit Provider Anesthesiology | DX: M79.18 Myalgia, other site (principal) | CPT/HCPCS: 20553 ==

== ENCOUNTER 2025-01-01 09:06 | Outpatient (AMB) | payer OTHER, SELFPAY ==
--- NOTE | 2025-01-01 09:10 | A.OFFVIS_ITS ---
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 Required: No Accompanied by: Self / Same As Patient Allergies gadopentetic acid [From Magnevist] Allergy (Unknown, Verified 01/01/25 09:35) Vomiting nitrofurantoin [From Macrobid] Allergy (Unknown, Verified 01/01/25 09:35) Swelling sulfamethoxazole [From Bactrim] Allergy (Unknown, Verified 01/01/25 09:35) Hives trimethoprim [From Bactrim] Allergy (Unknown, Verified 01/01/25 09:35) Hives gabapentin Adverse Reaction (Verified 01/01/25 09:35) Hallucinations Gadopentetate Allergy (Unknown, Uncoded 10/24/24 09:05) Vomiting Medication List - Last Reconciled 01/01/25 by ANYI Lopez acetaminophen 650 mg PO albuterol sulfate 90 mcg/actuation 1 g inhalation PRN ascorbic acid (vitamin C) (Vitamin C) 500 mg PO atorvastatin 20 mg PO DAILY epinephrine 0.3 mL IM ONCE PRN glatiramer mg subcut 3XW ibuprofen 600 mg PO TID levothyroxine 25 mcg PO omeprazole 20 mg PO DAILY HPI Comments Details: The patient is a 64-year-old female presenting for pain management related to chronic low back pain, severe left hip osteoarthritis, piriformis syndrome and greater trochanteric bursitis. Previously administered piriformis and left hip bursal injections significantly alleviated her pain for about 2 months, after which symptoms resumed and she requests to repeat them. This includes pain affecting the side of the left lateral hip and left buttock. Medical history includes an unresolved old left hip fracture and MS, impacting her mobility and contributing to a decision against surgical intervention at [facility] [place] few years ago. A delineated decline in function followed bowel surgery a year prior, reducing her ability for stand-pivot transfers due to reported muscle atrophy, partly linked to insufficient post-operative mobilization and MS. She remains predominantly wheelchair-bound, further challenged by left hip pain exacerbation without concomitant groin pain. Patient reports upcoming follow up with Neurology provider at [facility] with brain MRI scheduled for tomorrow. - Onset and Timing: Pain returned approximately two months after injections administered in October. - Quality: Aching and sharp pain in the side of the left hip and buttock. - Primary Location: Left hip, buttock area. - Radiation: Extends to the thigh and left knee. - Exacerbating factors: Prolonged sitting. - Alleviating factors: Previous injections provided significant relief. - Interference: Pain interferes with daily activities, particularly mobility and comfort. - Affect: The pain has a substantial impact on the patient's quality of life and psychological well-being. - Analgesia: Past injections alleviated pain; the patient hopes for future injections. Reports no current pain medications due to lack of efficacy. - Adverse Effects: The patient reported no adverse effects from previous injections. - Activities of Daily Living: Pain limits mobility and daily activities significantly; wheelchair-dependent due to long-term immobility. - Aberrant Drug-Related Behaviors: None reported. Past Procedures: 11/10/24: Left Therapeutic Piriformis Muscle Injection-90% pain relief for 2 months 05/25/23: Left Therapeutic Piriformis Muscle Injection-70% pain relief 04/27/23: Left Diagnostic Piriformis Muscle Injection-80% pain relief x12 hours PFSH Medical History Appendicitis Multiple sclerosis Paralysis Dyspnea Periodic limb movement disorder Splenomegaly Leukopenia Neurogenic bladder disorder Paroxysmal hemicrania Constipation Hypothyroidism Vitamin D deficiency GERD (gastroesophageal reflux disease) Hypertension Frequent UTI Pre-diabetes Urinary urgency Medical marijuana use Edema leg Hyperlipidemia Depression Surgical History Hx of cataract surgery Hx of colonoscopy History of laparoscopic appendectomy [place] teeth extracted H/O: History of back surgery H/O: hysterectomy Family History Mother Rheumatoid arthritis Thyroid cancer Father Rheumatoid arthritis Maternal Grandmother Lung cancer Maternal Grandfather Rectal cancer Maternal Aunt Thyroid cancer Social History Alcohol intake: current Alcohol intake frequency: holidays/special occasions only Patient Tobacco Use Status: Current someday Tobacco user Current occupational status: disabled 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 - Neurological: Denies new MS symptoms, MS being stable per last evaluation; mobility primarily impaired post-surgery. Pending brain MRI 01/02/25. - General: Reports pain significantly affecting daily activities. All systems reviewed & are unremarkable except as noted in HPI and below Physical Exam General: Appears afebrile. Alert and oriented. Mood and affect appropriate. Follows and participates in conversation appropriately. Respiratory effort is unlabored. No cough. Sits comfortably in motorized wheelchair but frequently adjusts her sitting position. Moderate tenderness in the projection of left piriformis. Left hip lateral tenderness and pain with LLE movements. Moderate TTP to left GTB. Passive limited external>internal rotation of left hip reproduces left lateral and left groin pain. Limited ability to stand or pivot; significant difficulty lifting left leg, with sensation of heaviness and shooting pain upon attempt. Back/Spine/Pelvis Cervical Spine: cervical ROM normal and No Cervical spine tenderness Thoracic/Lumbar Spine: thoracic and lumbar spine normal to inspection, Thoracic/lumbar spine scar(s), pain with thoraco-lumbar ROM, thoraco-lumbar ROM limited, No thoracic spinal tenderness and lumbar spinal tenderness at L4 and at L5 Pelvis: buttock tenderness on the left and no sciatic notch tenderness Sacroiliac joints: bilaterally nontender Results Reviewed Results Reviewed: MR HIP WITHOUT CONTRAST, LEFT 01/28/22 MRI FEMUR WITHOUT CONTRAST, LEFT 01/28/22 CLINICAL INFORMATION: Left hip pain and left leg pain. Multiple sclerosis. FINDINGS: LEFT HIP: BONES AND ARTICULAR CARTILAGE: Severe osteoarthritis at the left hip is characterized by complete, full-thickness articular cartilage loss at the superior aspect of the left hip joint with articular cortical remodeling, subarticular cystic change and edema, marginal osteophytes and loose body formation. The flattening of the femoral head is likely due to articular cortical remodeling. Bone loss is also suspected at the sourcil. The labrum is markedly degenerated. There is slight lateral translation and uncovering of the femoral head relative to the acetabular roof. An underlying component of hip dysplasia is possible, though not well assessed on these images given the articular cortical remodeling and bone loss. No fracture or malalignment. No evidence of avascular necrosis. Minimal osteoarthritis in the right hip and SI joints. Pubic symphysis is normal. MUSCLES AND TENDONS: There is edema signal around the origin of the rectus femoris at the anterior superior iliac spine and lateral acetabular rim, reactive to the adjacent arthritis of the hip joint. No tears. Mild tendinosis. There is [id number] fatty atrophy of the gluteus minimus muscle. Musculature is otherwise unremarkable. JOINT FLUID AND BURSAE: Moderate-sized left hip joint effusion. Multiple low signal intensity intra-articular loose bodies are identified, measuring up to 6 mm in diameter. No bursitis. LIGAMENTUM TERES: Chronically torn and degenerated. INTRAPELVIC SOFT TISSUES: No acute intrapelvic abnormalities are identified. Colonic diverticulosis. No adenopathy. LEFT FEMUR: BONES AND CARTILAGE: Osteoarthritis at the left knee is only partially imaged on this study likely most pronounced at the lateral compartment where there is subchondral edema and cortical irregularity in addition to the cartilage loss and marginal osteophytes. No fractures or stress reactions. No osseous lesions. MUSCLES AND TENDONS: There is intramuscular edema signal within the vastus lateralis muscle which is most pronounced distally, potentially due to a muscle strain or contusion. Denervation is also possible, though felt to be less likely. Tendons appear intact. There is mild generalized muscle atrophy without more focal regions of fatty replacement. JOINT FLUID AND BURSAE: Small left knee joint effusion. No bursitis. LYMPHOVASCULAR STRUCTURES: Unremarkable. No adenopathy. IMPRESSION: Severe osteoarthritis in the left hip with articular surface remodeling, bone loss and subchondral cystic change. Mild rectus femoris tendinosis. No tears. Moderate-sized left hip joint effusion with small intra-articular chondral loose bodies. Mild intramuscular edema in the vastus lateralis muscle is most pronounced in the distal thigh and could correspond to a strain or contusion. Denervation is also on the differential, though felt to be less likely in the absence of more pronounced atrophy. Osteoarthritis at the knee is partially imaged on this study and most pronounced in the lateral compartment. Assessment & Plan Assessment & Plan (1) Piriformis syndrome of left side: Comment: 04/27/23: left diagnostic piriformis muscle injection with 80% pain relief for 12 hours, 50% relief x1 week Code(s): G57.02 - Lesion of sciatic nerve, left lower limb Category: Medical (2) Chronic left hip pain: Code(s): M25.552 - Pain in left hip; G89.29 - Other chronic pain Category: Medical (3) Failed back syndrome of lumbar spine: Code(s): M96.1 - Postlaminectomy syndrome, not elsewhere classified Category: Medical (4) Greater trochanteric bursitis of left hip: Code(s): M70.62 - Trochanteric bursitis, left hip Category: Medical (5) Degenerative joint disease of left hip: Code(s): M16.12 - Unilateral primary osteoarthritis, left hip Category: Medical Qualifiers: Osteoarthritis type: unspecified Qualified Code(s): M16.12 - Unilateral primary osteoarthritis, left hip (6) Multiple sclerosis: Code(s): G35 - Multiple sclerosis Category: Medical Plan Patient presents today for request to repeat therapeutic left piriformis muscle injection which provided her 90% pain relief for 2 months with significant improvement in her functioning and sleep. She also has moderate localized t enderness in the projection of her left GTB area. We will proceed with another round of left piriformis and hip bursa injections, based on the patient's prior satisfactory response and needs for addressing chronic left hip and buttock pain. We acknowledged the challenges related to surgical options due to MS and wheelchair dependency and recommended potentially seeking another Orthopedic opinion should MS be stable. The patient's MRI is scheduled to assess MS status, with results coordinated with the patient's MS Neurologist to tailor ongoing management. We discussed realistic expectations of treatment outcomes and encouraged the patient to engage in physical therapy to mitigate immobilization effects observed post-bowel surgery. Schedule repeat left therapeutic piriformis muscle injection and left therapeutic GTB injection with light sedation and ultrasound guidance. Expectations, risks and benefits were reviewed. Patient is aware she will be contacted to schedule this procedure. All questions were answered and the patient is in agreement of plan. Follow-up after injections and sooner as needed. Patient was informed and verbally consented to the use of an ambient scribe for clinic note documentation during this visit. Patient Instructions: During the visit, I educated the patient about the upcoming injection procedure, reiterating that while long-acting nerve blocks and corticosteroid injections significantly alleviate pain, relief is transient, and duration varies individually. I provided thorough counseling on anticipated benefits and risk, focusing on previous successful outcomes. We discussed the patient's medical history, emphasizing the chronicity of her left hip pain compounded by MS and post-surgical weaknesses, impeding surgical avenues. Patient is considering [facility] for a second Orthopedic opinion, should the need arise, contingent upon future brain MRI findings clarifying her MS status. Coding Level of Care Code Est Pt Level 4 (76615) Complex EM visit Add On G2211 Diagnoses Piriformis syndrome of left side G57.02 Chronic left hip pain M25.552; G89.29 Failed back syndrome of lumbar spine M96.1 Greater trochanteric bursitis of left hip M70.62 Osteoarthritis of left hip, unspecified osteoarthritis type M16.12 Osteoarthritis type: unspecified Multiple sclerosis G35
[2025-01-01 09:34] VITALS: BP 147/79; PULSE 64; O2SAT 98; BMI 26.6
== END 2025-01-01 09:53 | disposition home or self-care (01) ==
LOC: HO.PMC 09:07
PROVIDERS: PCP Internal Medicine; Visit Provider Nurse Practitioner Family
DX: G57.02 Lesion of sciatic nerve, left lower limb (principal); M25.552 Pain in left hip; G89.29 Other chronic pain; M96.1 Postlaminectomy syndrome, not elsewhere classified; M70.62 Trochanteric bursitis, left hip; M16.12 Unilateral primary osteoarthritis, left hip; G35 Multiple sclerosis
CPT/HCPCS: 99214; G2211

== ENCOUNTER → 2025-01-01 09:06 | Outpatient (BNVA) | payer OTHER, SELFPAY | PROVIDERS: PCP Internal Medicine; Visit Provider Nurse Practitioner Family | DX: M70.62 Trochanteric bursitis, left hip (principal); G35 Multiple sclerosis; M16.12 Unilateral primary osteoarthritis, left hip; M96.1 Postlaminectomy syndrome, not elsewhere classified; M25.552 Pain in left hip; G89.29 Other chronic pain; G57.02 Lesion of sciatic nerve, left lower limb | CPT/HCPCS: 99212 ==